=== PATIENT | male | born 1965 | race Caucasian/White ===

== ENCOUNTER 2016-10-30 08:34 | Day surgery (SDC) | payer BC ==
[2016-10-30] MEDS ORDERED: PROPOFOL 20 ML ONE ×2 (08:42)
[2016-10-30 08:59] VITALS: BMI 41.3
[2016-10-30] MEDS ORDERED: LIDOCAINE HCL/PF 2% SDV 5ML VIAL ONE (09:38)
[2016-10-30 10:55] VITALS: BP 115/70; PULSE 80; TEMP 98
== END 2016-10-30 11:15 | disposition home or self-care (01) ==
LOC: FASU-ENDO 08:34
PROVIDERS: ATTEND Internal Medicine Gastroenterology
PROC: 0DJD8ZZ Inspection of Lower Intestinal Tract, Via Natural or Artificial Opening Endoscopic (ICD-10-PCS; principal; 2016-10-30 10:20)
DX: Z12.11 Encounter for screening for malignant neoplasm of colon (principal); K57.30 Diverticulosis of large intestine without perforation or abscess without bleeding

== ENCOUNTER 2018-07-02 05:49 | Inpatient (IN) | payer BC ==
[2018-06-27 13:50] VITALS: BMI 41.8
[2018-07-02] MEDS ORDERED: TRANEXAMIC ACID 1000 MG/10 ML VIAL IVPUSH ONE (06:38)
[2018-07-02] MEDS ORDERED: oxyCODONE HCL 10 MG SUSTAINED ACTING TABLET PO ONE (06:38)
[2018-07-02] MEDS ORDERED: GABAPENTIN 300 MG CAPSULE (FP) PO ONE (06:38)
[2018-07-02] MEDS ORDERED: CEFAZOLIN 2 GM/D5W 2 GM/50 ML ML IVPB ONE (06:38)
[2018-07-02] MEDS ORDERED: CELECOXIB 200 MG CAPSULE PO ONE (06:38)
[2018-07-02] MEDS ORDERED: oxyCODONE HCL 10 MG SUSTAINED ACTING TABLET ONE (07:01)
[2018-07-02] MEDS ORDERED: GABAPENTIN 300 MG CAPSULE (FP) ONE (07:02)
[2018-07-02] MEDS ORDERED: CELECOXIB 200 MG CAPSULE ONE (07:02)
[2018-07-02] MEDS ORDERED: ceFAZolin SODIUM 1 GM VIAL ONE ×2 (07:14→07:26)
[2018-07-02] MEDS ORDERED: VANCOMYCIN 1,000 MG VIAL (RESTRICTED TO ID ONLY) ONE (07:14)
[2018-07-02] MEDS ORDERED: KETAMINE HCL 200 MG/20 ML VIAL ONE (07:25)
[2018-07-02] MEDS ORDERED: PROPOFOL 20 ML ONE (07:25)
[2018-07-02] MEDS ORDERED: SUCCINYLCHOLINE CHLORIDE 200 MG/10 ML VIAL ONE (07:25)
[2018-07-02] MEDS ORDERED: ONDANSETRON 4 MG/2 ML VIAL ONE (07:26)
[2018-07-02] MEDS ORDERED: SODIUM CHLORIDE 0.9% P/F 10 ML VIAL IJ ONE (07:26)
[2018-07-02] MEDS ORDERED: ROPIVACAINE HCL 0.5% 30ML VIAL ONE (07:32)
[2018-07-02] MEDS ORDERED: MIDAZOLAM HCL 2 MG/2 ML SINGLE DOSE VIAL ONE ×4 (07:32→21:23)
[2018-07-02] MEDS ORDERED: EPINEPHrine/PF 1 MG/1 ML (1:1,000) AMPULE ONE (07:32)
--- NOTE | 2018-07-02 07:58 | HP ---
Satellite [facility] - Chief Complaint Chief Complaint: right hip pain - Past Medical History Allergies/Adverse Reactions: Allergies Allergy/AdvReac Type Severity Reaction Status Date / Time No Known Allergies Allergy Verified 10/30/16 08:52 - Current Medications Current Medications: Home Medications Medication Instructions Recorded Amlodipine Besylate 10 mg PO DAILY 10/30/16 Gemfibrozil [Lopid -] 600 mg PO BID 10/30/16 Lisinopril [Prinivil] 20 mg PO DAILY 10/30/16 Allopurinol [Zyloprim -] 100 mg PO DAILY 06/27/18 Metoprolol Tartrate 25 mg PO BID 06/27/18 Satellite Physical Exam - Physical Examination Vital Signs: Vital Signs Period Temp Pulse Resp BP Sys/Lau Pulse Ox Last 24 Hr 98.2 F 68 18 117/70 General Appearance: Well Nourished, Well Developed, Alert & Oriented x3 ENT: Clear Lung: Normal air movement Heart: Regular rate & rhythm Extremities: Other (right hip- + ttp, decr rom, nvi xrays show grade 4 hip djd) Neurological: Intact, Alert, Oriented Satellite Impression/Plan - Impression/Plan Impression: right hip djd Operative Procedure: right saba thr Date to be Performed: 07/02/18
[2018-07-02] MEDS ORDERED: MAGNESIUM HYDROX 2400MG/30ML ORAL SUSPENSION 30 ML CUP PO PRN (07:59)
[2018-07-02] MEDS ORDERED: ONDANSETRON 4 MG/2 ML VIAL IVPUSH PRN (07:59)
[2018-07-02] MEDS ORDERED: MAG HYDROX/AL HYDROX/SIMETH 30 ML UNIT-DOSE CUP PO PRN (07:59)
[2018-07-02] MEDS ORDERED: LACTATED RINGERS SOLUTION 1,000 ML IV SCH (08:00)
[2018-07-02] MEDS ORDERED: TRANEXAMIC ACID 1000 MG/10 ML VIAL ONE (08:44)
[2018-07-02] MEDS ORDERED: ePHEDrine SULFATE 50 MG/1 ML AMPULE ONE (09:08)
[2018-07-02] MEDS ORDERED: VASOPRESSIN 20 UNITS/ML VIAL IV ONE (10:00)
[2018-07-02] MEDS ORDERED: PANTOPRAZOLE 40 MG TABLET (FP) PO SCH (10:00)
[2018-07-02] MEDS ORDERED: LISINOPRIL 20 MG TABLET (FP) PO SCH (10:00)
[2018-07-02] MEDS: HYDROmorphone HCL CARPU-JECT 2 MG/1 ML DISP.SYRIN IVPUSH ONE ×2 (10:50→11:30)
--- NOTE | 2018-07-02 11:19 | OP ---
DATE OF OPERATION: 07/02/2018 PREOPERATIVE DIAGNOSIS: Degenerative joint disease, right hip. POSTOPERATIVE DIAGNOSIS: Degenerative joint disease, right hip. PROCEDURE: Attempted total hip replacement. SURGICAL ATTENDING: Sergio Proctor MD ASSOCIATE [employer]: ELIZABETH Solorzano ANESTHESIA: Spinal and IV sedation. CLOSURE: No. 1 Vicryl to fascia, 0 and 2-0 subcutaneous, and reid for the skin. ESTIMATED BLOOD LOSS: Negligible. COMPLICATION: Please see full dictation to follow. DESCRIPTION OF OPERATIVE PROCEDURE: Patient was taken to the operating room July 02, 2018. Spinal anesthesia as well as IV sedation was administered by the anesthesiologist. IV Kefzol and TXA were administered prophylactically prior to the case. Patient was placed in the lateral decubitus position with all prominences well padded. Right hip area was prepped and draped in the usual sterile fashion. Three small stab incisions were made over the iliac crest. Through them 3 pins were placed in between the 2 tables gaining excellent fixation. A navigation array was fastened to these 3 pins. The posterolateral approach to the hip was used. A 12 to 15 cm longitudinal incision over the posterolateral aspect of the greater trochanter was incised. Hemostasis was ensured with Bovie cautery. Sharp dissection was carried down to the level of the fascia. Fascia was opened the entire length of the incision. Charnley retractor was placed in this layer. The checkpoint was then malleted into the trochanter. At this time Anesthesia informed me that the patient was desaturating and an immediate code was being called on the patient. Patient needed to be intubated. We therefore packed the wound with some Betadine-soaked sponges and put a Betadine drape over the incision and emergently put the patient in the supine position. Once in the supine position, the pins in the iliac crest were removed as well and a Band-Aid was applied over the small stab incisions. Please see the Anesthesia report regarding the entire resuscitation efforts. Once Anesthesia had stabilized the patient, we elected to abort the operation. We prepped and draped the incision. We pulse irrigated the wound with antibiotic irrigation, pulled out the checkpoint in the greater trochanter. We closed the fascia with No. 1 Vicryl interrupted suture; 0 and 2-0 were used to close the skin and reid on skin followed by sterile Aquacel dressing. Reid were also used to close the pin sites and an Aquacel dressing was applied there as well. Estimated blood loss during my part of the procedure was minimal. Once completely stable, the patient was transferred to the recovery room still intubated on a respirator. For all further dictations regarding the patient's care, please again see the anesthesiologist's notes of the care rendered during and postoperatively. SERGIO PROCTOR M.D. [id number]
[2018-07-02] MEDS ORDERED: HYDROmorphone HCL CARPU-JECT 2 MG/1 ML DISP.SYRIN ONE (11:28)
[2018-07-02] MEDS ORDERED: DEXMEDETOMIDINE HCL 200 MCG/2 ML IVPB ONE (11:29)
[2018-07-02] MEDS: MIDAZOLAM HCL 2 MG/2 ML SINGLE DOSE VIAL IVPUSH ONE ×2 (11:30→22:23)
[2018-07-02] MEDS ORDERED: HYDROmorphone HCL CARPU-JECT 1 MG/1 ML DISP.SYRIN IVPUSH PRN (11:40)
[2018-07-02] MEDS ORDERED: MIDAZOLAM HCL 2 MG/2 ML SINGLE DOSE VIAL IVPUSH ONE ×2 (11:52→20:06)
[2018-07-02] MEDS ORDERED: VASOPRESSIN 50 UNITS in SODIUM CHLORIDE 97.5 ML IVPB SCH (12:00)
[2018-07-02 13:13] LABS: ANION GAP 9 MMOL/L (8-16); BLOOD UREA NITROGEN 46 mg/dl (7-18); CALCIUM 8.9 mg/dl (8.5-10); CHLORIDE 105 mmol/L (98-107); CO2 18 mmol/L (21-32); CREATININE 1.5 mg/dl (0.55-1.3); GLUCOSE,RANDOM 124 mg/dl (74-106); SODIUM 132 mmol/L (136-145)
[2018-07-02 13:37] LABS: ARTERIAL BLD GAS O2 SATURATION 94.3 % (95-98); ARTERIAL BLOOD GAS BASE EXCESS -7.4 meq/l (-2-2); ARTERIAL BLOOD GAS PCO2 51.1 mmHg (35-45); ARTERIAL BLOOD GAS PO2 81.3 mmHg (80-105); ARTERIAL BLOOD GAS pH 7.22 (7.35-7.45)
[2018-07-02 13:40] LABS: ALLENS TEST POSITIVE
[2018-07-02] MEDS: PHENYLEPHRINE HCL 20,000 MCG in SODIUM CHLORIDE 248 ML IVPB SCH ×2 (15:00→17:21)
--- NOTE | 2018-07-02 15:09 | PN ---
Progress Note (short form) - Note Progress Note: Earlier today I was called to the OR urgently because the patient was increasingly agitated. Upon entering the OR, Diego Temple CRNA was supporting the patient's airway with 100% oxygen. The patient still had spontaneous respiration. I took over masking the patient and initiated 2 person ventilation. I informed the surgeon we needed to roll the patient supoine from the left, lateral position and called for more anesthesia assistance. the patient was promptly rolled, O2 sat increased from low 80s to 92%. Pt. was intubated with a mac 4, 7.0 ETT, grade 3 view, +EtCO2, atraumatic. At that point , no pulse was palpable and I directed one of the other physicians to start chest compressions. An amp of epinepherine was administered IV. Chest compressions were continued for 2 minutes at which point there was a return of spontaneous rhythm, blood pressure and O2 sat at 100%. Incision was closed and the patient was transferred to the PACU at which point the patient become responsive to pain. The patient remained intubated, Precedex sedation was started and the patient was transferred to the [facility] ICU
[2018-07-02] MEDS ORDERED: MIDAZOLAM HCL 5 MG/1 ML Single Dose Vial IVPUSH ONE ×2 (15:45)
--- NOTE | 2018-07-02 16:03 | CONSULT ---
Consult Consult Specialty:: ICU Referred by:: Mike hendrix Reason for Consultation:: s/p cardiac arrest - History of Present Illness History of Present Illness: history obtained from at bedside as patient in intubated and sedated. Chart reviewed for events at [facility]. 53 yr old man with HTN, HLD, DJD of the right hip undergoing elective right hip replacement. pt was medically stable prior to the procedure. After first incision, pt was noted to be desaturating, was laid supine with initiation of CPR, ROSC was achieved within 2 mins. pt was taken to the PACU intubated and sedated requiring phenylephrine and vasopressin peripherally for pressure support. sedation was achieved with precedex. pt was transferred to [facility] [place] ICU for further monitoring. As per , pt had changed his diet recently and was not eating or drinking fluids as much as he used to. last week in his dr's office he was unable to urinate for hours because he was so "dry." pt has received sedation in the past during a colonoscopy with out adverse events. denies any recent complaints of cough, chest pain, palpitations, fever, abdominal pain, diarrhea, dysuria, travel outside the [place], prolonged car rides or plane rides within the last month. she was not sure if he had taken any NSAIDs during the last, but thinks likely not if he had been instructed by surgery not to do so. fmhx: sister with DM, father when pt was 12yrs old due to a pulmonary embolism( was unsure of circumstances of PE, provoked vs unprovoked), mother had a pacemaker(unknown indication). was unsure of any other family hx of coagulopathy pmhx: HTN, HLD, denies hx of ND, CVA, or renal insufficiency Surghx: none All: NKDA Social: denies smoking, etoh, illicit drug use - Alcohol/Substance Use Hx Alcohol Use: No - Smoking History Smoking history: Never smoked Have you smoked in the past 12 months: No Home Medications - Allergies Allergies/Adverse Reactions: Allergies Allergy/AdvReac Type Severity Reaction Status Date / Time No Known Allergies Allergy Verified 10/30/16 08:52 - Home Medications Home Medications: Ambulatory Orders Amlodipine Besylate 10 mg PO DAILY 10/30/16 Gemfibrozil [Lopid -] 600 mg PO BID 10/30/16 Lisinopril [Prinivil] 20 mg PO DAILY 10/30/16 Allopurinol [Zyloprim -] 100 mg PO DAILY 06/27/18 Metoprolol Tartrate 25 mg PO BID 06/27/18 Family Disease History - Family Disease History Family Disease History: Diabetes: Sister, Heart Disease: Mother (pacemaker), Other: Father (PE) Review of Systems Unable to obtain ROS, reason: intubated and sedated Physical Exam Vital Signs: Vital Signs Temperature 97.7 F 07/02/18 14:15 Pulse Rate 84 07/02/18 14:15 Respiratory Rate 15 07/02/18 14:45 Blood Pressure 103/53 L 07/02/18 14:15 O2 Sat by Pulse Oximetry (%) 96 07/02/18 13:00 Constitutional: Yes: Calm Eyes: Yes: Conjunctiva Clear, PERRL HENT: Yes: Atraumatic, Normocephalic, Other (endotracheal tube in place) Neck: Yes: Trachea Midline. No: Lymphadenopathy Cardiovascular: Yes: Regular Rate and Rhythm. No: Murmur Respiratory: Yes: Intubated, Rhonchi. No: Accessory Muscle Use, Wheezes Gastrointestinal: Yes: Soft, Abdomen, Obese, Hernia (perumbilical) Edema: No Peripheral Pulses WNL: Yes Wound/Incision: Yes: Clean/Dry Labs: CBC, BMP 07/02/18 12:30 Assessment/Plan 53 yr old man with HTN, HLD, DJD in right hip s/p cardiac arrest during initiation of elective right hip replacement in ICU for further management. unclear cause of cardiac arrest without significant pmhx of cardiac disease and medical stability for elective hip replacement. could be from volume depletion or reaction to sedation. - Neurological - baseline alert and orient x3 - sedated on propofol currently, was on precedex earlier today - sedation holiday to assess mental status in the morning - Cardiovascular - hypotensive, monitoring with A-line - phenylephrine and vasopressin for pressure support attempt to titrate down to maintain MAP >65 - IVF - repeat echo - cardiology evaluation - elevation in troponin, trend for peak - Respiratory - intubated, Acute respiratory acidosis - vent: 12/500/Fio2 100%/5 - titrate Fio2 as tolerated to maintain sat >90% - repeat ABG in the AM, improved from earlier at [facility] - weaning trial in the AM - cxy in the morning - Renal - KIMBERLY, likely prerenal from decr po intake pre-op - IVF Ns @100cc, with close monitoring of I&O - mcgraw in place - Fluids, electrolytes, nutrition (FEN) - mild hyperkalemia, repeat in the AM - NPO - Hematology - mild leucocytosis, likely reactive as no active source of infection w.o complaints of dysuria, cxy without acute infiltrate or fever - Prophylaxis - SCDs for VTE as he just had incision from surgery on his right hip - pepcid IV BID for GI prophylaxis
[2018-07-02] MEDS ORDERED: SODIUM CHLORIDE 1,000 ML IV SCH (17:00)
[2018-07-02] MEDS: METOPROLOL TARTRATE 25 MG TABLET (FP) PO SCH ×2 (17:06→22:25)
[2018-07-02] MEDS: amLODIPine BESYLATE 10 MG TABLET (FP) PO SCH (17:07)
[2018-07-02] MEDS: SENNOSIDES/DOCUSATE COMBO (SENNA PLUS) TABLET (UD) PO SCH ×2 (17:07→22:25)
[2018-07-02] MEDS: MULTIVITAMINS (DAILY MVI) TABLET (FP) PO SCH (17:08)
[2018-07-02] MEDS: ALLOPURINOL 100 MG TABLET (FP) PO SCH (17:16)
--- NOTE | 2018-07-02 17:21 | HP ---
Admitting History and Physical - Admission Chief Complaint: s/p intubation for right hip THR, patient developed cardiac arrest, and procedure had to be cancelled History of Present Illness: Patient examined in recovery in [facility]. Morbidly obese 53 yo male, scheduled for right THR, lost approximately 50 lbs during the past 4 weeks through diet and decreased caloric intake. The patient was clinically dehydrated in my office on 06/30/18 and unable to provide specimen for UA after drinking a high amount of water. Today in OR, while on Phentanyl, the patient developed hypoxia, bradycardia and then cardiac arrest.The incision wound was closed without any intervention on his right hip. Patient remains intubated at this time. His PMH is positive for Morbid Obesity, HTN, Dyslipidemia. There is NO HISTORY OF DM He developed NSAID induced AKD. Last dose of Diclofenac was in March. On 06/16 2018 his creatinine was 1.66. At that time Lisinopril was stopped and he was started on Metoprolol 26 mg bid. Repeated chemistry on 06/30/18 showed a creatinine of 1.16. The Patient IS NOT diabetic. Ekg and ECHO were at baseline prior to surgery.The patient received CPR with administration of 1 ampule of epinephrine. The cardiac rhythm was recovered.Patient Patient remains intubated at this time. History Source: Medical Record - Past Medical History Cardiovascular: Yes: HTN, Hyperlipdemia Pulmonary: Yes: Other (intuna=bated) - Smoking History Smoking history: Never smoked Have you smoked in the past 12 months: No - Alcohol/Substance Use Hx Alcohol Use: No Home Medications - Allergies Allergies/Adverse Reactions: Allergies Allergy/AdvReac Type Severity Reaction Status Date / Time No Known Allergies Allergy Verified 10/30/16 08:52 - Home Medications Home Medications: Ambulatory Orders Amlodipine Besylate 10 mg PO DAILY 10/30/16 Gemfibrozil [Lopid -] 600 mg PO BID 10/30/16 Allopurinol [Zyloprim -] 100 mg PO DAILY 06/27/18 Metoprolol Tartrate 25 mg PO BID 06/27/18 Amlodipine Besylate [Norvasc -] 10 mg PO DAILY tablet 07/05/18 Aspirin [ASA -] 325 mg PO DAILY@0800 tablet 07/05/18 Gemfibrozil [Lopid -] 600 mg PO BIDAC tablet 07/05/18 Heparin - 5,000 unit SQ TID vial 07/05/18 Magnesium Hydrox 2400MG/30Ml [Milk of Magnesia -] 30 ml PO PRN PRN cup Magnesium Hydrox 2400MG/30Ml [Milk of Magnesia -] 30 ml PO PRN PRN cup Metoprolol Tartrate [Lopressor -] 25 mg PO BID tablet 07/05/18 Multivitamins [Multivit ([facility] Formulary)] 1 tab PO DAILY tab 07/05/18 Sennosides/Docusate Sodium [Pericolace -] 2 tablet PO BID tablet 07/05/18 Sennosides/Docusate Sodium [Pericolace -] 2 tablet PO BID tablet 07/05/18 oxyCODONE HCL [Roxicodone -] 5 mg PO Q6H PRN #30 tablet MDD 4 07/05/18 Review of Systems - Review of Systems Constitutional: reports: Other (sedated) Physical Examination Vital Signs: Vital Signs Temperature 97.7 F 07/02/18 14:15 Pulse Rate 84 07/02/18 14:15 Respiratory Rate 15 07/02/18 14:45 Blood Pressure 103/53 L 07/02/18 14:15 O2 Sat by Pulse Oximetry (%) 96 07/02/18 13:00 Constitutional: Yes: No Distress, Obese, Other (sedated and intubated) Eyes: Yes: Conjunctiva Clear HENT: Yes: Atraumatic Labs: CBC, BMP 07/02/18 12:30 Imaging - Results Chest X-ray: Other (11 am CXR cardiomegaly , possible left infiltrate, ET Tube present high above the darell 2 pm CXR Et tube present in a lower position) Problem List - Problems (1) Cardiac arrest Assessment/Plan: serial enzymes ekg echo Cardiology follow up Code(s): I46.9 - CARDIAC ARREST, CAUSE UNSPECIFIED (2) HTN (hypertension) Assessment/Plan: norvasc 10 mg daily Code(s): I10 - ESSENTIAL (PRIMARY) HYPERTENSION (3) Obesity Assessment/Plan: despite morbid obesity the patient is not diabetic and the HB A1 c in June 2018 was 5.1 Code(s): E66.9 - OBESITY, UNSPECIFIED Qualifiers: Body mass index: BMI 40.0-44.9 (4) Hyperlipidemia Assessment/Plan: continue Lopid 600 mg po bid Code(s): E78.5 - HYPERLIPIDEMIA, UNSPECIFIED (5) Acute kidney injury Assessment/Plan: creatinine on 06/30/18 1.16!! after stopping Lisinopril on 06/16/18 The patient has NOT been taking NSAIDS since March 2018 injury probably related to shock and cardiac arrest Code(s): N17.9 - ACUTE KIDNEY FAILURE, UNSPECIFIED (6) Leukocytosis Assessment/Plan: stress related most likely CXR shows consistently haziness in the left lung, not clear if congestive changes or aspiration? will not cover with ABX for now since there is no left shift repeat cbc in am Code(s): D72.829 - ELEVATED WHITE BLOOD CELL COUNT, UNSPECIFIED
[2018-07-02] MEDS: PROPOFOL 1,000,000 MCG/100 ML VIAL IVPB SCH ×2 (17:23→21:17)
--- NOTE | 2018-07-02 17:25 | PN ---
Teaching Attending Note Name of Resident: Marianna Rubalcava ATTENDING PHYSICIAN STATEMENT I saw and evaluated the patient. I reviewed the resident's note and discussed the case with the resident. I agree with the resident's findings and plan as documented. SUBJECTIVE: Patient seen and examined in the ICU. Transferred from [facility]. Developed hypoxemia and bradycardia prior to a Right hip replacement. Patient was endotracheally intubated. CPR was initiated due to asystole. ROSC after 2 to 3 minutes. Transiently required Phenylephrine for hypotension. Now in the ICU. Intubated on AC Mode of vent. At this time no pressors and MAP 68 by Sandi tracing. Intake & Output 06/29/18 06/30/18 07/01/18 07/02/18 23:59 23:59 23:59 23:59 Intake Total 2650 Output Total 640 Balance 2009 Weight 326 lb 4.8 oz Last Vital Signs Temp Pulse Resp BP Pulse Ox 97.7 F 58 L 15 122/68 96 07/02/18 14:15 07/02/18 17:20 07/02/18 14:45 07/02/18 17:20 07/02/18 13:00 Active Medications Al Hydroxide/Mg Hydroxide (Mylanta Oral Suspension -) 30 ml PO Q4H PRN PRN Reason: DYSPEPSIA Allopurinol (Zyloprim -) 100 mg PO DAILY [facility] Last Admin: 07/02/18 17:16 Dose: Not Given Amlodipine Besylate (Norvasc -) 10 mg PO DAILY [facility] Last Admin: 07/02/18 17:07 Dose: Not Given Aspirin (Asa -) 325 mg PO DAILY@0800 [facility] Gemfibrozil (Lopid -) 600 mg PO BIDAC [facility] Hydromorphone HCl (Dilaudid Injection -) 0.5 mg IVPUSH [id number] PRN PRN Reason: PAIN-PACU ORDER X 4 DOSES ONLY Cefazolin Sodium/Dextrose (Ancef 2 Gm Premixed Ivpb -) 2 gm in 50 mls @ 100 mls /hr IVPB Q8H [facility] Stop: 07/03/18 00:29 Lactated Ringer's (Lactated Ringers Solution) 1,000 mls @ 125 mls/hr IV ASDIR [facility] Stop: 07/03/18 06:00 Phenylephrine HCl 20,000 mcg/ (Sodium Chloride) 250 mls @ 75 mls/hr IVPB ASDIR PRO; Protocol Last Admin: 07/02/18 17:21 Dose: 25 mcg/min, 18.75 mls/hr Vasopressin 50 units/ Sodium (Chloride) 100 mls @ 4 mls/hr IVPB ASDIR PRO; Protocol Last Admin: 07/02/18 17:20 Dose: 3 units/hr, 6 mls/hr Propofol (Diprivan -) 1,000,000 mcg in 100 mls @ 8.88 mls/hr IVPB TITR PRO; Protocol Last Admin: 07/02/18 17:23 Dose: 30 mcg/kg/min, 26.641 mls/hr Sodium Chloride (Normal Saline -) 1,000 mls @ 100 mls/hr IV ASDIR PRO Last Admin: 07/02/18 17:24 Dose: 100 mls/hr Magnesium Hydroxide (Milk Of Magnesia -) 30 ml PO PRN PRN PRN Reason: CONSTIPATION Metoprolol Tartrate (Lopressor -) 25 mg PO BID [facility] Last Admin: 07/02/18 17:06 Dose: Not Given Multivitamins/Minerals/Vitamin C (Tab-A-Vit -) 1 tab PO DAILY [facility] Last Admin: 07/02/18 17:08 Dose: Not Given Ondansetron HCl (Zofran Injection) 4 mg IVPUSH Q6H PRN PRN Reason: NAUSEA Senna/Docusate Sodium (Pericolace -) 2 tablet PO BID [facility] Last Admin: 07/02/18 17:07 Dose: Not Given Constitutional: Yes: Intubated and sedated Eyes: Yes: WNL, Conjunctiva Clear, (-) Icterus HENT: Yes: NC, AT Neck: Yes: WNL, Supple, Trachea Midline Respiratory: Yes: Mechanically ventilated, clear GI: soft, obese, (+) BS, NT, ND Ext: (-) edema APPLIANCE ADJUSTER: Sedated Laboratory Results - last 24 hr 07/02/18 07/02/18 07/02/18 12:25 12:30 12:30 Anticoagulation Therapy No Result Required. Puncture Site Arterial line ABG pH 7.22 L ABG pCO2 at Pt Temp 51.1 H ABG pO2 at Pt Temp 81.3 ABG HCO3 20.3 L ABG O2 Sat (Measured) 94.3 L ABG O2 Content 19.3 ABG Base Excess -7.4 L Reyes Test Positive O2 Delivery Device No Result Required. Oxygen Flow Rate Yes Vent Mode No Result Required. Vent Rate No Result Required. Mechanical Rate No Result Required. PEEP 5.0 Pressure Support Vent 500 Sodium 132 L Potassium 5.0 Chloride 105 Carbon Dioxide 18 L Anion Gap 9 BUN 46 H Creatinine 1.5 H Creat Clearance w eGFR 48.95 Random Glucose 124 H Calcium 8.9 Troponin I 0.08 H Assessment/Plan Acute CP Arrest: Appears to have regained ROSC after 2 to 3 minutes. Morbid Obesity ARF Suspected OSAS PLAN: IVF Strict I & O Follow Renal Function Sedate for vent synchrony Daily sedation vacation ECHO Cardiology evaluation Requires ICU Level of monitoring To start SBTs as tolerated Dr Hill Critical care time spent in reviewing chart, evaluating patient and formulating plan - 36 minutes.
[2018-07-02] MEDS ORDERED: PROPOFOL 1,000,000 MCG/100 ML VIAL ONE (17:27)
[2018-07-02] MEDS: CEFAZOLIN 2 GM/D5W 2 GM/50 ML ML IVPB SCH (17:30)
[2018-07-02] MEDS ORDERED: PT OWN MED DRAWER 7, Y5N ONE (17:36)
[2018-07-02 18:05] LABS: ARTERIAL BLD GAS O2 SATURATION 99.6 % (95-98); ARTERIAL BLOOD GAS BASE EXCESS -6.5 meq/l (-2-2); ARTERIAL BLOOD GAS PCO2 46.7 mmHg (35-45); ARTERIAL BLOOD GAS PO2 284 mmHg (80-105); ARTERIAL BLOOD GAS pH 7.26 (7.35-7.45)
[2018-07-02 18:11] LABS: ALLENS TEST POSITIVE
[2018-07-02 18:55] LABS: BASO % 0.2 % (0-2.0); EOS % 0.1 % (0-4.5); HEMATOCRIT 39.7 % (35.4-49); HEMOGLOBIN 13.5 GM/dL (11.7-16.9); LYMPH % 11.1 % (8-40); MCH 33.2 pg (25.7-33.7); MEAN CELL VOLUME 97.6 fl (80-96); MEAN PLT VOLUME 9.5 fl (7.5-11.1); MONO % 9.6 % (3.8-10.2); PLATELET COUNT 246 K/MM3 (134-434); RBC 4.07 M/mm3 (4.00-5.60); RDW 13.8 % (11.9-15.9); WHITE BLOOD COUNT 11.9 K/mm3 (4.0-10.0)
[2018-07-02 19:20] LABS: MAGNESIUM 2.1 mg/dL (1.8-2.4); PHOSPHOROUS 3.7 mg/dL (2.5-4.9)
[2018-07-02 19:30] LABS: ANION GAP 7 MMOL/L (8-16); BLOOD UREA NITROGEN 39 mg/dL (7-18); CHLORIDE 106 mmol/L (98-107); CO2 23 mmol/L (21-32); CREATININE 1.3 mg/dL (0.55-1.3); GLUCOSE,RANDOM 129 mg/dL (74-106); POTASSIUM 5.8 mmol/L (3.5-5.1); SODIUM 136 mmol/L (136-145)
--- NOTE | 2018-07-02 21:47 | EKG ---
Test Reason : Blood Pressure : / mmHG Vent. Rate : 085 BPM Atrial Rate : 085 BPM P-R Int : 194 ms QRS Dur : 098 ms QT Int : 370 ms P-R-T Axes : 052 011 029 degrees QTc Int : 440 ms NORMAL SINUS RHYTHM NORMAL ECG WHEN COMPARED WITH ECG OF 21-MAR-2008 10:04, NON-SPECIFIC CHANGE IN ST SEGMENT IN LATERAL LEADS T WAVE INVERSION NO LONGER EVIDENT IN LATERAL LEADS Confirmed by MD GREGORIA, ARSH ([id number]) on 07/02/2018 9:47:10 PM Referred By: Bong Proctor Confirmed By:ARSH KINNEY MD
--- NOTE | 2018-07-02 22:34 | CON.CARD ---
Consult Consult Specialty:: cardiology Reason for Consultation:: cardiac arrest - History of Present Illness Chief Complaint: Pt is intubated; sedated. History of Present Illness: 53 yr old white man with HTN, HLD, obesity, DJD of the right hip undergoing elective right hip replacement. pt was medically stable prior to the procedure. After first incision, pt was noted to be desaturating, was laid supine with initiation of CPR, ROSC was achieved within 2 mins. pt was taken to the PACU intubated and sedated requiring phenylephrine and vasopressin peripherally for pressure support. sedation was achieved with precedex. pt was transferred to [facility] ICU for further monitoring. He became agitated, and was given Versed during transfer. As per , pt had changed his diet recently and was not eating or drinking fluids as much as he used to for the past two weeks. Last week ,in his dr's office, he was unable to urinate for several hours when asked to give a specimen because he was so "dry." pt has received sedation in the past during a colonoscopy with out adverse events. denies any recent complaints of cough, chest pain, palpitations, fever, abdominal pain, diarrhea, dysuria, travel outside the [place], prolonged car rides or plane rides within the last month. she was not sure if he had taken any NSAIDs during the last, but thinks likely not if he had been instructed by surgery not to do so. fmhx: sister with DM, father when pt was 12yrs old due to a pulmonary embolism ( was unsure of circumstances of PE, provoked vs unprovoked), mother had a pacemaker(unknown indication). was unsure of any other family hx of coagulopathy pmhx: HTN, HLD, denies hx of PA, CVA, or renal insufficiency Surghx: none All: NKDA Social: denies smoking, etoh, illicit drug use - History Source History Provided By: Medical Record Limitations to Obtaining History: Unresponsive (intubated/sedated) - Past Medical History Cardio/Vascular: Yes: CHF, HTN, Hyperlipdemia Pulmonary: Yes: Other (intuna=bated) - Alcohol/Substance Use Hx Alcohol Use: No - Smoking History Smoking history: Never smoked Have you smoked in the past 12 months: No Home Medications - Allergies Allergies/Adverse Reactions: Allergies Allergy/AdvReac Type Severity Reaction Status Date / Time No Known Allergies Allergy Verified 10/30/16 08:52 - Home Medications Home Medications: Ambulatory Orders Amlodipine Besylate 10 mg PO DAILY 10/30/16 Gemfibrozil [Lopid -] 600 mg PO BID 10/30/16 Lisinopril [Prinivil] 20 mg PO DAILY 10/30/16 Allopurinol [Zyloprim -] 100 mg PO DAILY 06/27/18 Metoprolol Tartrate 25 mg PO BID 06/27/18 Family Disease History - Family Disease History Family Disease History: Diabetes: Sister, Heart Disease: Mother (pacemaker), Other: Father (PE) Review of Systems Unable to obtain ROS, reason: intubated/sedated - Risk Factors Known Risk Factors: Yes: Age, Diabetes Mellitus, Gender, Hypercholesterolemia, Hypertension Vital Signs: Vital Signs Temperature 98.1 F 07/02/18 20:55 Pulse Rate 68 07/02/18 20:55 Respiratory Rate 14 07/02/18 22:13 Blood Pressure 96/59 L 07/02/18 20:55 O2 Sat by Pulse Oximetry (%) 99 07/02/18 20:55 Constitutional: Yes: Obese Eyes: Yes: WNL HENT: Yes: Other Neck: Yes: Decreased ROM Respiratory: Yes: Mechanically Ventilated Gastrointestinal: Yes: Abdomen, Obese Renal/: Yes: Tracy Present Cardiovascular: Yes: Tachycardia JVD: No Carotid Bruit: No PMI: Non-Displaced Heart Sounds: Yes: S1, S2 Musculoskeletal: Yes: Other (was reportedly agitated during transfer between hospitals; now sedated) Edema: No Peripheral Pulses WNL: Yes Integumentary: Yes: Incision Neurological: Yes: Unresponsive Psychiatric: Yes: Other - Other Data Labs, Other Data: CBC, BMP 07/02/18 18:00 07/02/18 18:00 Troponin, BNP 07/02/18 07/02/18 12:30 18:00 Troponin I 0.08 H 0.33 H Troponin, BNP 07/02/18 07/02/18 12:30 18:00 Troponin I 0.08 H 0.33 H Imaging - Results Chest X-ray: Image Reviewed (few congestive changes) EKG: Image Reviewed (NSR; normal study) Other: Image Reviewed (telemetry: sinus tachycardia) Problem List - Problems (1) Cardiac arrest Assessment/Plan: Presently on phenylephrine and Vasopressin; titrate off when hemodynamically stable. Hydration. F/u BUN/Cr, electrolytes (K+ 5.0; f/u serially). TNI serially (initially 0.08) EKG: normal sinus rhythm; normal study. ECHO several days ago: normal LVEF, LV size, wall thickness and motion, mild MR and TR; would repeat with attention to LVEF, regional wall motion. Code(s): I46.9 - CARDIAC ARREST, CAUSE UNSPECIFIED (2) Hip replacement planned Code(s): UDK3281 - (3) Obesity Code(s): E66.9 - OBESITY, UNSPECIFIED Qualifiers: Body mass index: BMI 40.0-44.9 (4) HTN (hypertension) Code(s): I10 - ESSENTIAL (PRIMARY) HYPERTENSION (5) Hyperlipidemia Code(s): E78.5 - HYPERLIPIDEMIA, UNSPECIFIED (6) Diabetes Code(s): E11.9 - TYPE 2 DIABETES MELLITUS WITHOUT COMPLICATIONS (7) Prerenal azotemia Assessment/Plan: Pt had reportedly radically changed his diet/fluid intake over the past few weeks in an attempt to lose weight prior to surgery. F/u renal status while IVF are administered. Code(s): R79.89 - OTHER SPECIFIED ABNORMAL FINDINGS OF BLOOD CHEMISTRY Assessment/Plan CCU time spent: 75 minutes.
[2018-07-02] MEDS ORDERED: MIDAZOLAM 100 MG/100 ML MG IVPB ONE (22:43)
[2018-07-02] MEDS ORDERED: MIDAZOLAM 100 MG in SODIUM CHLORIDE 100 ML IVPB SCH (22:45)
[2018-07-03] MEDS ORDERED: INSULIN REGULAR HUMAN 100 UNITS/ML *VIAL IVPUSH ONE (00:38)
[2018-07-03] MEDS ORDERED: DEXTROSE 50%-WATER - 25 GM/50 ML VIAL IVPUSH ONE (00:39)
[2018-07-03] MEDS ORDERED: DEXTROSE 50%-WATER - 25 GM/50 ML VIAL ONE (00:45)
[2018-07-03] MEDS: CEFAZOLIN 2 GM/D5W 2 GM/50 ML ML IVPB SCH (01:08)
[2018-07-03] MEDS: PROPOFOL 1,000,000 MCG/100 ML VIAL IVPB SCH ×3 (01:18→20:42)
[2018-07-03 02:18] LABS: ANION GAP 7 MMOL/L (8-16); BLOOD UREA NITROGEN 32 mg/dL (7-18); CALCIUM 9.1 mg/dL (8.5-10.1); CHLORIDE 107 mmol/L (98-107); CO2 22 mmol/L (21-32); CREATININE 1.1 mg/dL (0.55-1.3); GLUCOSE,RANDOM 145 mg/dL (74-106); SODIUM 136 mmol/L (136-145)
[2018-07-03] MEDS: GEMFIBROZIL 600 MG TABLET (FP) PO SCH ×2 (06:36→20:42)
[2018-07-03 06:50] LABS: BASO % 0.2 % (0-2.0); EOS % 0.2 % (0-4.5); HEMATOCRIT 38.5 % (35.4-49); HEMOGLOBIN 13.5 GM/dL (11.7-16.9); LYMPH % 13.7 % (8-40); MCH 33.7 pg (25.7-33.7); MEAN CELL VOLUME 96.2 fl (80-96); MEAN PLT VOLUME 9.9 fl (7.5-11.1); MONO % 12.2 % (3.8-10.2); NEUT % 73.7 % (42.8-82.8); PLATELET COUNT 230 K/MM3 (134-434); WHITE BLOOD COUNT 10.5 K/mm3 (4.0-10.0)
[2018-07-03 07:23] LABS: CHOLESTEROL 149 mg/dL (50-200); HDL CHOLESTEROL 31 mg/dL (40-60); TRIGLYCERIDES 168 mg/dL (0-150)
--- NOTE | 2018-07-03 07:26 | PN ---
Physical Exam: SUBJECTIVE: Patient seen and examined. Was intubated yesterday as part of code after de-sating in [place] OR for R hip surgery and required one round epi and 2 mins chest compression. Also required vasopressin and phenylephrine overnight. OBJECTIVE: Vital Signs Period Temp Pulse Resp BP Sys/Lau Pulse Ox Last 24 Hr 97.7 F-98.2 F 58-128 10-29 66-140/20-103 94-100 Vital Signs Temp 97.9 F 07/03/18 10:00 Pulse 106 H 07/03/18 12:00 Resp 20 07/03/18 12:00 BP 155/84 07/03/18 12:00 Pulse Ox 96 07/03/18 09:45 Intake & Output 07/02/18 07/03/18 07/03/18 23:59 11:59 23:59 Intake Total 700 Output Total 640 1500 1500 Balance 60 -1500 -1500 Weight 147.871 kg Intake: IV 700 Output: Urine 640 1500 1500 Mcgraw 1500 1500 Other: Voiding Method Indwelling Catheter Indwelling Catheter Height 1.88 m Body Mass Index (BMI) 41.8 Weight Measurement Method Built in [facility] GENERAL: The patient is Morbidly obese, awake, alert, and fully oriented, in no acute distress. EYES: PERRL, extraocular movements intact ENT: ETT-AC-12/500/50/5 NECK: supple. LUNGS: Breath sounds equal, clear to auscultation bilaterally, no wheezes, no crackles, no accessory muscle use. HEART: Regular rate and rhythm, S1, S2 ABDOMEN: Obese, Soft, nontender, nondistended, normoactive bowel sounds EXTREMITIES: R hip dressing clean and dry. 2+ pulses, warm, well-perfused, no edema. NEUROLOGICAL: Cranial nerves II through XII grossly intact. Normal speech, gait not observed. PSYCH: Normal mood, normal affect. SKIN: Warm, dry, normal turgor, no rashes or lesions noted Laboratory Results - last 24 hr 07/02/18 07/02/18 07/02/18 12:25 12:30 12:30 WBC RBC Hgb Hct MCV MCH MCHC RDW Plt Count MPV Absolute Neuts (auto) Neutrophils % Lymphocytes % Monocytes % Eosinophils % Basophils % Nucleated RBC % Anticoagulation Therapy No Result Required. Puncture Site Arterial line ABG pH 7.22 L ABG pCO2 at Pt Temp 51.1 H ABG pO2 at Pt Temp 81.3 ABG HCO3 20.3 L ABG O2 Sat (Measured) 94.3 L ABG O2 Content 19.3 ABG Base Excess -7.4 L Reyse Test Positive O2 Delivery Device No Result Required. Oxygen Flow Rate Yes Vent Mode No Result Required. Vent Rate No Result Required. Mechanical Rate No Result Required. PEEP 5.0 Pressure Support Vent 500 Sodium 132 L Potassium 5.0 Chloride 105 Carbon Dioxide 18 L Anion Gap 9 BUN 46 H Creatinine 1.5 H Creat Clearance w eGFR 48.95 Random Glucose 124 H Calcium 8.9 Phosphorus Magnesium Creatine Kinase Troponin I 0.08 H Triglycerides Cholesterol Total LDL Cholesterol HDL Cholesterol TSH 07/02/18 07/02/18 07/02/18 17:55 18:00 18:00 WBC 11.9 H RBC 4.07 Hgb 13.5 Hct 39.7 MCV 97.6 H MCH 33.2 MCHC 34.0 RDW 13.8 Plt Count 246 MPV 9.5 Absolute Neuts (auto) 9.4 H Neutrophils % 79.0 Lymphocytes % 11.1 Monocytes % 9.6 Eosinophils % 0.1 Basophils % 0.2 Nucleated RBC % 0 Anticoagulation Therapy Puncture Site Arterial line ABG pH 7.26 L ABG pCO2 at Pt Temp 46.7 H ABG pO2 at Pt Temp 284 H ABG HCO3 20.2 L ABG O2 Sat (Measured) 99.6 H ABG O2 Content 18.4 ABG Base Excess -6.5 L Reyes Test Positive O2 Delivery Device Mechanical vent Oxygen Flow Rate 100 Vent Mode A/c Vent Rate 12 Mechanical Rate PEEP 5.0 Pressure Support Vent Sodium Potassium Chloride Carbon Dioxide Anion Gap BUN Creatinine Creat Clearance w eGFR Random Glucose Calcium Phosphorus 3.7 Magnesium 2.1 Creatine Kinase Troponin I Triglycerides Cholesterol Total LDL Cholesterol HDL Cholesterol TSH 07/02/18 07/02/18 07/03/18 18:00 18:00 01:44 WBC RBC Hgb Hct MCV MCH MCHC RDW Plt Count MPV Absolute Neuts (auto) Neutrophils % Lymphocytes % Monocytes % Eosinophils % Basophils % Nucleated RBC % Anticoagulation Therapy Puncture Site ABG pH ABG pCO2 at Pt Temp ABG pO2 at Pt Temp ABG HCO3 ABG O2 Sat (Measured) ABG O2 Content ABG Base Excess Reyes Test O2 Delivery Device Oxygen Flow Rate Vent Mode Vent Rate Mechanical Rate PEEP Pressure Support Vent Sodium 136 136 Potassium 5.8 H 4.0 Chloride 106 107 Carbon Dioxide 23 22 Anion Gap 7 L 7 L BUN 39 H 32 H Creatinine 1.3 1.1 Creat Clearance w eGFR 57.75 70.02 Random Glucose 129 H 145 H Calcium 9.0 9.1 Phosphorus Magnesium Creatine Kinase 122 Troponin I 0.33 H Triglycerides Cholesterol Total LDL Cholesterol HDL Cholesterol TSH 0.39 07/03/18 07/03/18 01:44 05:30 WBC RBC Hgb Hct MCV MCH MCHC RDW Plt Count MPV Absolute Neuts (auto) Neutrophils % Lymphocytes % Monocytes % Eosinophils % Basophils % Nucleated RBC % Anticoagulation Therapy Puncture Site ABG pH ABG pCO2 at Pt Temp ABG pO2 at Pt Temp ABG HCO3 ABG O2 Sat (Measured) ABG O2 Content ABG Base Excess Reyes Test O2 Delivery Device Oxygen Flow Rate Vent Mode Vent Rate Mechanical Rate PEEP Pressure Support Vent Sodium Potassium Chloride Carbon Dioxide Anion Gap BUN Creatinine Creat Clearance w eGFR Random Glucose Calcium Phosphorus Magnesium Creatine Kinase Troponin I 0.36 H Triglycerides 168 H Cholesterol 149 Total LDL Cholesterol 92 HDL Cholesterol 31 L TSH Active Medications Generic Name Dose Route Start Last Admin Trade Name Freq PRN Reason Stop Dose Admin Al Hydroxide/Mg Hydroxide 30 ml 07/02/18 07:59 Mylanta Oral Suspension - PO Q4H PRN DYSPEPSIA Allopurinol 100 mg 07/02/18 10:00 07/02/18 17:16 Zyloprim - PO Not Given DAILY [facility] Amlodipine Besylate 10 mg 07/02/18 10:00 07/02/18 17:07 Norvasc - PO Not Given DAILY [facility] Aspirin 325 mg 07/03/18 08:00 Asa - PO DAILY@0800 [facility] Gemfibrozil 600 mg 07/02/18 16:30 07/03/18 06:36 Lopid - PO Not Given BIDAC [facility] Phenylephrine HCl 20,000 mcg/ 250 mls @ 75 mls/hr 07/02/18 12:00 07/02/18 17: 21 Sodium Chloride IVPB 25 mcg/min ASDIR PRO 18.75 mls/hr Administration Protocol 100 MCG/MIN Vasopressin 50 units/ Sodium 100 mls @ 4 mls/hr 07/02/18 12:00 07/02/18 17:20 Chloride IVPB 3 units/hr ASDIR PRO 6 mls/hr Administration Protocol 2 UNITS/HR Propofol 1,000,000 mcg in 100 mls @ 8.88 mls/hr 07/02/18 16:00 07/03/18 05:10 Diprivan - IVPB 30 mcg/kg/min TITR PRO 26.641 mls/hr Administration Protocol 10 MCG/KG/MIN Sodium Chloride 1,000 mls @ 100 mls/hr 07/02/18 17:00 07/02/18 17:24 Normal Saline - IV 100 mls/hr ASDIR PRO Administration Famotidine/Sodium Chloride 20 mg in 50 mls @ 100 mls/hr 07/03/18 10:00 Pepcid 20 Mg Premixed Ivpb - IVPB BID PRO Midazolam HCl 100 mg/ Sodium 100 mls @ 1 mls/hr 07/02/18 22:45 07/03/18 01:18 Chloride IVPB 8 mg/hr TITR PRO 8 mls/hr Titration Protocol 1 MG/HR Magnesium Hydroxide 30 ml 07/02/18 07:59 Milk Of Magnesia - PO PRN PRN CONSTIPATION Metoprolol Tartrate 25 mg 07/02/18 10:00 07/02/18 22:25 Lopressor - PO Not Given BID [facility] Multivitamins/Minerals/Vitamin C 1 tab 07/02/18 10:00 07/02/18 17:08 Tab-A-Vit - PO Not Given DAILY [facility] Ondansetron HCl 4 mg 07/02/18 07:59 Zofran Injection IVPUSH Q6H PRN NAUSEA Senna/Docusate Sodium 2 tablet 07/02/18 10:00 07/02/18 22:25 Pericolace - PO Not Given BID [facility] ASSESSMENT/PLAN: 53 yr old man with HTN, HLD, DJD in right hip s/p cardiac arrest during initiation of elective right hip replacement in ICU for further management. Unclear cause of cardiac arrest, possibly due to SHANNAN #Neurology - baseline alert and orient x3 - Pt sedated on propofol and versed overnight, was on precedex yesterday - Now off sedation and extubated (07/03/18) #Cardiovascular -s/p cardiac arrest, 1 round of epi, chest compressions x2 mins - hypotensive s/p cardiac arrest, - phenylephrine and vasopressin dc'd - IVF- stopped evidence of fluid congestion - repeat echo pending report - cardiology evaluation - elevation in troponin, trending, no chest pain currently #Respiratory - intubated for Acute hypercapnic respiratory failure with acidosis , now extubated 07/03, tolerating ventimask -Likely secondary to undiagnosed SHANNAN - maintain sat >90% on supplemental O2 - Would need outpt PFTs and possible sleep studies #Renal - - KIMBERLY, likely prerenal - IVF Ns @100cc,dcd -fluid overload in CXR - mcgraw in place #FEN - IVF dced - NaPhosph given - Sodium free diet #Hematology - leucocytosis, likely reactive now trending down -#Prophylaxis - Sq heparin - pepcid IV BID for GI prophylaxis #Dispo -Tele transfer Visit type - Emergency Visit Emergency Visit: Yes ED Registration Date: 07/02/18 Care time: The patient presented to the Emergency Department on the above date and was hospitalized for further evaluation of their emergent condition. - New Patient This patient is new to me today: Yes Date on this admission: 07/03/18 - Critical Care Critical Care patient: Yes Total Critical Care Time (in minutes): 36 Critical Care Statement: The care of this patient involved high complexity decision making to prevent further life threatening deterioration of the patient 's condition and/or to evaluate & treat vital organ system(s) failure or risk of failure.
[2018-07-03 07:38] LABS: ALBUMIN 3.9 g/dl (3.4-5.0); ALK PHOS 46 U/L (45-117); ANION GAP 11 MMOL/L (8-16); BILIRUBIN,TOTAL 0.5 mg/dL (0.2-1); BLOOD UREA NITROGEN 27 mg/dL (7-18); CALCIUM 9.3 mg/dL (8.5-10.1); CHLORIDE 105 mmol/L (98-107); CO2 19 mmol/L (21-32); CREATININE 0.9 mg/dL (0.55-1.3); GLUCOSE,RANDOM 99 mg/dL (74-106); MAGNESIUM 2.1 mg/dL (1.8-2.4); PHOSPHOROUS 2.2 mg/dL (2.5-4.9); POTASSIUM 4.1 mmol/L (3.5-5.1); SGOT/AST 51 U/L (15-37); SGPT/ALT 44 U/L (13-61); SODIUM 135 mmol/L (136-145); TOT PROT 7.8 g/dl (6.4-8.2)
[2018-07-03] MEDS ORDERED: DEXTROSE 5%-NORMAL SALINE 1,000 ML IV SCH ×2 (08:00→20:00)
[2018-07-03] MEDS ORDERED: ASPIRIN 325 MG TABLET PO SCH (08:00)
--- NOTE | 2018-07-03 10:00 | PN ---
Progress Note (short form) - Note Progress Note: THE PATIENT IS SEDATED AND INTUBATE. THE ICU STAFF WILL TRY TO EXTUBATE THE PATIENT TODAY. THE INCISION BANDAGE IS CLEAN AND DRY. CALF IS SOFT AND NT. NVI PLAN: ONCE EXTUBATE, THE PATIENT CAN BE OOB TO CHAIR, WBAT.
[2018-07-03] MEDS: amLODIPine BESYLATE 10 MG TABLET (FP) PO SCH (10:11)
[2018-07-03] MEDS: SENNOSIDES/DOCUSATE COMBO (SENNA PLUS) TABLET (UD) PO SCH ×2 (10:11→21:40)
[2018-07-03] MEDS: MULTIVITAMINS (DAILY MVI) TABLET (FP) PO SCH (10:13)
[2018-07-03] MEDS: FAMOTIDINE 20 MG/50 ML IVPB 20 MG/50 ML MG IVPB SCH ×2 (10:13→21:40)
[2018-07-03] MEDS: ALLOPURINOL 100 MG TABLET (FP) PO SCH (10:13)
[2018-07-03] MEDS: METOPROLOL TARTRATE 25 MG TABLET (FP) PO SCH ×2 (10:14→21:40)
--- NOTE | 2018-07-03 10:39 | EKG ---
Test Reason : Blood Pressure : / mmHG Vent. Rate : 116 BPM Atrial Rate : 116 BPM P-R Int : 176 ms QRS Dur : 098 ms QT Int : 322 ms P-R-T Axes : 045 018 051 degrees QTc Int : 447 ms SINUS TACHYCARDIA INFERIOR INFARCT , AGE UNDETERMINED T WAVE ABNORMALITY, CONSIDER LATERAL ISCHEMIA ABNORMAL ECG WHEN COMPARED WITH ECG OF 02-JUL-2018 11:52, NON-SPECIFIC CHANGE IN ST SEGMENT IN ANTERIOR LEADS T WAVE INVERSION NOW EVIDENT IN LATERAL LEADS Confirmed by ANGIE POLANCO, RAJI ([id number]) on 07/03/2018 10:39:44 AM Referred By: Bong Proctor Confirmed By:RAJI ADAMS MD
--- NOTE | 2018-07-03 11:19 | PN ---
Progress Note, Physician History of Present Illness: 53 yr old white man with HTN, HLD, obesity, DJD of the right hip undergoing elective right hip replacement. pt was medically stable prior to the procedure. After first incision, pt was noted to be desaturating, was laid supine with initiation of CPR, ROSC was achieved within 2 mins. pt was taken to the PACU intubated and sedated requiring phenylephrine and vasopressin peripherally for pressure support. sedation was achieved with precedex. pt was transferred to [facility] ICU for further monitoring. He became agitated, and was given Versed during transfer. As per , pt had changed his diet recently and was not eating or drinking fluids as much as he used to for the past two weeks. Last week ,in his dr's office, he was unable to urinate for several hours when asked to give a specimen because he was so "dry." pt has received sedation in the past during a colonoscopy with out adverse events. denies any recent complaints of cough, chest pain, palpitations, fever, abdominal pain, diarrhea, dysuria, travel outside the , prolonged car rides or plane rides within the last month. she was not sure if he had taken any NSAIDs during the last, but thinks likely not if he had been instructed by surgery not to do so. fmhx: sister with DM, father when pt was 12yrs old due to a pulmonary embolism ( was unsure of circumstances of PE, provoked vs unprovoked), mother had a pacemaker(unknown indication). was unsure of any other family hx of coagulopathy pmhx: HTN, HLD, denies hx of PR, CVA, or renal insufficiency Surghx: none All: NKDA Social: denies smoking, etoh, illicit drug use - Current Medication List Current Medications: Active Medications Al Hydroxide/Mg Hydroxide (Mylanta Oral Suspension -) 30 ml PO Q4H PRN PRN Reason: DYSPEPSIA Allopurinol (Zyloprim -) 100 mg PO DAILY [facility] Last Admin: 07/03/18 10:13 Dose: Not Given Amlodipine Besylate (Norvasc -) 10 mg PO DAILY [facility] Last Admin: 07/03/18 10:11 Dose: Not Given Aspirin (Asa -) 325 mg PO DAILY@0800 [facility] Last Admin: 07/03/18 10:14 Dose: Not Given Gemfibrozil (Lopid -) 600 mg PO BIDAC [facility] Last Admin: 07/03/18 06:36 Dose: Not Given Heparin Sodium (Porcine) (Heparin -) 5,000 unit SQ TID [facility] Phenylephrine HCl 20,000 mcg/ (Sodium Chloride) 250 mls @ 75 mls/hr IVPB ASDIR [facility]; Protocol Last Admin: 07/02/18 17:21 Dose: 25 mcg/min, 18.75 mls/hr Propofol (Diprivan -) 1,000,000 mcg in 100 mls @ 8.88 mls/hr IVPB TITR [facility]; Protocol Last Admin: 07/03/18 05:10 Dose: 30 mcg/kg/min, 26.641 mls/hr Famotidine/Sodium Chloride (Pepcid 20 Mg Premixed Ivpb -) 20 mg in 50 mls @ 100 mls/hr IVPB BID [facility] Last Admin: 07/03/18 10:13 Dose: 100 mls/hr Magnesium Hydroxide (Milk Of Magnesia -) 30 ml PO PRN PRN PRN Reason: CONSTIPATION Metoprolol Tartrate (Lopressor -) 25 mg PO BID [facility] Last Admin: 07/03/18 10:14 Dose: Not Given Multivitamins/Minerals/Vitamin C (Tab-A-Vit -) 1 tab PO DAILY [facility] Last Admin: 07/03/18 10:13 Dose: Not Given Ondansetron HCl (Zofran Injection) 4 mg IVPUSH Q6H PRN PRN Reason: NAUSEA Senna/Docusate Sodium (Pericolace -) 2 tablet PO BID [facility] Last Admin: 07/03/18 10:11 Dose: Not Given - Objective Vital Signs: Vital Signs Temperature 97.9 F 07/03/18 10:00 Pulse Rate 120 H 07/03/18 10:00 Respiratory Rate 20 07/03/18 10:00 Blood Pressure 136/79 07/03/18 10:00 O2 Sat by Pulse Oximetry (%) 96 07/03/18 09:45 Eyes: Yes: WNL, Conjunctiva Clear, EOM Intact HENT: Yes: WNL, Atraumatic, Normocephalic Neck: Yes: WNL, Supple, Trachea Midline Cardiovascular: Yes: WNL, Regular Rate and Rhythm Respiratory: Yes: WNL, Regular, CTA Bilaterally Gastrointestinal: Yes: WNL, Normal Bowel Sounds Genitourinary: Yes: WNL Musculoskeletal: Yes: WNL Extremities: Yes: WNL Edema: No Integumentary: Yes: WNL Neurological: Yes: Lethargy ...Motor Strength: WNL Psychiatric: Yes: WNL Labs: CBC, BMP 07/03/18 05:30 07/03/18 05:30 Assessment/Plan Problems (1) Cardiac arrest Assessment/Plan: extubated, sedated Presently on phenylephrine and Vasopressin; titrate off when hemodynamically stable. Hydration. F/u BUN/Cr, electrolytes (K+ 5.0; f/u serially). TNI serially (initially 0.08) EKG: normal sinus rhythm; normal study. ECHO several days ago: normal LVEF, LV size, wall thickness and motion, mild MR and TR; would repeat with attention to LVEF, regional wall motion. Code(s): I46.9 - CARDIAC ARREST, CAUSE UNSPECIFIED will need c. cath when stable (2) Hip replacement planned Code(s): [id number] - (3) Obesity Code(s): E66.9 - OBESITY, UNSPECIFIED (4) HTN (hypertension) Code(s): I10 - ESSENTIAL (PRIMARY) HYPERTENSION (5) Hyperlipidemia Code(s): E78.5 - HYPERLIPIDEMIA, UNSPECIFIED (6) Diabetes Code(s): E11.9 - TYPE 2 DIABETES MELLITUS WITHOUT COMPLICATIONS (7) Prerenal azotemia Assessment/Plan: Pt had reportedly radically changed his diet/fluid intake over the past few weeks in an attempt to lose weight prior to surgery. F/u renal status while IVF are administered. Code(s): R79.89 - OTHER SPECIFIED ABNORMAL FINDINGS OF BLOOD CHEMISTRY CC time 36 min
--- NOTE | 2018-07-03 12:29 | PN ---
Teaching Attending Note Name of Resident: Evelyn Patino ATTENDING PHYSICIAN STATEMENT I saw and evaluated the patient. I reviewed the resident's note and discussed the case with the resident. I agree with the resident's findings and plan as documented. SUBJECTIVE: Pt seen and examined in the ICU. Remained intubated overnight on phenylephrine and vasopressin gtts. Awake, alert off sedation, tolerated CPAP/PS trials with good RSBI and subsequently extubated during rounds. OBJECTIVE: Vital Signs Period Temp Pulse Resp BP Sys/Lau Pulse Ox Last 24 Hr 97.7 F-98.2 F 58-128 10-29 88-140/53-103 96-100 Intake & Output 06/30/18 07/01/18 07/02/18 07/03/18 23:59 23:59 23:59 23:59 Intake Total 2650 Output Total 640 1500 Balance 2009 -1499 Weight 147.871 kg Gen: extubated Heart: RRR Lung: distant breath sounds Abd: soft, obese, nontender Ext: no edema CBC, BMP 07/03/18 05:30 07/03/18 05:30 Active Medications Al Hydroxide/Mg Hydroxide (Mylanta Oral Suspension -) 30 ml PO Q4H PRN PRN Reason: DYSPEPSIA Allopurinol (Zyloprim -) 100 mg PO DAILY [facility] Last Admin: 07/03/18 10:13 Dose: Not Given Amlodipine Besylate (Norvasc -) 10 mg PO DAILY [facility] Last Admin: 07/03/18 10:11 Dose: Not Given Aspirin (Asa -) 325 mg PO DAILY@0800 [facility] Last Admin: 07/03/18 10:14 Dose: Not Given Gemfibrozil (Lopid -) 600 mg PO BIDAC [facility] Last Admin: 07/03/18 06:36 Dose: Not Given Heparin Sodium (Porcine) (Heparin -) 5,000 unit SQ TID [facility] Phenylephrine HCl 20,000 mcg/ (Sodium Chloride) 250 mls @ 75 mls/hr IVPB ASDIR [facility]; Protocol Last Admin: 07/02/18 17:21 Dose: 25 mcg/min, 18.75 mls/hr Propofol (Diprivan -) 1,000,000 mcg in 100 mls @ 8.88 mls/hr IVPB TITR [facility]; Protocol Last Admin: 07/03/18 05:10 Dose: 30 mcg/kg/min, 26.641 mls/hr Famotidine/Sodium Chloride (Pepcid 20 Mg Premixed Ivpb -) 20 mg in 50 mls @ 100 mls/hr IVPB BID [facility] Last Admin: 07/03/18 10:13 Dose: 100 mls/hr Magnesium Hydroxide (Milk Of Magnesia -) 30 ml PO PRN PRN PRN Reason: CONSTIPATION Metoprolol Tartrate (Lopressor -) 25 mg PO BID [facility] Last Admin: 07/03/18 10:14 Dose: Not Given Multivitamins/Minerals/Vitamin C (Tab-A-Vit -) 1 tab PO DAILY [facility] Last Admin: 07/03/18 10:13 Dose: Not Given Ondansetron HCl (Zofran Injection) 4 mg IVPUSH Q6H PRN PRN Reason: NAUSEA Senna/Docusate Sodium (Pericolace -) 2 tablet PO BID [facility] Last Admin: 07/03/18 10:11 Dose: Not Given ASSESSMENT AND PLAN: s/p Cardiopulmonary Arrest Likely Obstructive Sleep Apnea Acute Kidney Injury +Troponins likely Demand Ischemia Morbid Obesity - pt extubated - can d/c IVF - monitor urine output, creatinine - taper off pressors - echocardiogram - trend cardiac enzymes until peak - PO as tolerated - DVT prophylaxis - will need outpt PSG - can monitor on telemetry in PM if remains stable critical care time spent in reviewing chart, evaluating patient and formulating plan 35 min
--- NOTE | 2018-07-03 13:06 | ECHO ---
Name: SUSY GEORGE Exam:Adult Echocardiogram Study Date: 07/03/2018 09:39 AM Age: 53 yrs Reason For Study: S/P Cardiac Arrest Height: 74 in Weight: 326 lb BSA: 2.7 m2 MMode/2D Measurements & Calculations IVSd: 1.1 cm Ao root diam: 3.4 cm LVIDd: 3.7 cm LA dimension: 4.2 cm LVIDs: 2.3 cm LVPWd: 1.1 cm EDV(Teich): 56.4 ml LVOT diam: 2.2 cm ESV(Teich): 17.7 ml Doppler Measurements & Calculations Ao V2 max: 206.3 cm/sec LV V1 max P.7 mmHg Ao max P.0 mmHg LV V1 mean P.7 mmHg Ao V2 mean: 132.6 cm/sec LV V1 max: 139.2 cm/sec Ao mean P.4 mmHg LV V1 mean: 85.7 cm/sec Ao V2 VTI: 28.5 cm LV V1 VTI: 23.2 cm MARK(I,D): 3.1 cm2 MARK(V,D): 2.6 cm2 SV(LVOT): 88.4 ml Procedure A two-dimensional transthoracic echocardiogram with color flow and Doppler was performed. The study w as technically difficult with many images being suboptimal in quality. Left Ventricle The left ventricular size, thickness and function are normal. The left ventricle is hyperdynamic. Reg ional wall motion abnormalities cannot be excluded due to limited visualization. Right Ventricle The right ventricle is not well visualized. Atria The left atrium is mildly dilated. The right atrium is mildly dilated. Mitral Valve There is mild mitral valve thickening. The mitral valve is not well visualized. Tricuspid Valve The tricuspid valve is not well visualized. Aortic Valve The aortic valve is not well visualized. Pulmonic Valve The pulmonic valve is not well visualized. Great Vessels The aortic root is not well visualized. Pericardium/Pleura There is no pericardial effusion. Interpretation Summary The left ventricular size, thickness and function are normal The left ventricle is hyperdynamic. The left atrium is mildly dilated. The right atrium is mildly dilated. The tricuspid valve is not well visualized. The mitral valve is not well visualized. The study was technically difficult with many images being suboptimal in quality. The aortic valve is not well visualized. The pulmonic valve is not well visualized. The aortic root is not well visualized. Regional wall motion abnormalities cannot be excluded due to limited visualization. MD Chris Giron 07/03/2018 01:05 PM
[2018-07-03] MEDS: HEPARIN NA (PORCINE) 5,000 UNITS/ML 1ML VIAL SQ SCH ×2 (14:56→21:39)
[2018-07-03] MEDS ORDERED: FUROSEMIDE 40 MG/4 ML INJECTABLE VIAL IVPUSH ONE (19:50)
--- NOTE | 2018-07-03 19:51 | PN ---
Progress Note, Physician Chief Complaint: patient extubated today History of Present Illness: 53 yo male who was supposed to have right hip THR, developed cardiac arrest after being sedated and his surgery was cancelled. He was extubated today. The patient is still sleepy and groggy. - Current Medication List Current Medications: Active Medications Al Hydroxide/Mg Hydroxide (Mylanta Oral Suspension -) 30 ml PO Q4H PRN PRN Reason: DYSPEPSIA Allopurinol (Zyloprim -) 100 mg PO DAILY [facility] Last Admin: 07/03/18 10:13 Dose: Not Given Amlodipine Besylate (Norvasc -) 10 mg PO DAILY [facility] Last Admin: 07/03/18 10:11 Dose: Not Given Aspirin (Asa -) 325 mg PO DAILY@0800 [facility] Last Admin: 07/03/18 10:14 Dose: Not Given Furosemide (Lasix Injection -) 40 mg IVPUSH ONCE ONE Stop: 07/03/18 19:51 Gemfibrozil (Lopid -) 600 mg PO BIDAC [facility] Last Admin: 07/03/18 06:36 Dose: Not Given Heparin Sodium (Porcine) (Heparin -) 5,000 unit SQ TID [facility] Last Admin: 07/03/18 14:56 Dose: 5,000 unit Phenylephrine HCl 20,000 mcg/ (Sodium Chloride) 250 mls @ 75 mls/hr IVPB ASDIR [facility]; Protocol Last Admin: 07/02/18 17:21 Dose: 25 mcg/min, 18.75 mls/hr Propofol (Diprivan -) 1,000,000 mcg in 100 mls @ 8.88 mls/hr IVPB TITR [facility]; Protocol Last Admin: 07/03/18 05:10 Dose: 30 mcg/kg/min, 26.641 mls/hr Famotidine/Sodium Chloride (Pepcid 20 Mg Premixed Ivpb -) 20 mg in 50 mls @ 100 mls/hr IVPB BID [facility] Last Admin: 07/03/18 10:13 Dose: 100 mls/hr Dextrose/Sodium Chloride (D5-Ns -) 1,000 mls @ 42 mls/hr IV ASDIR PRO Magnesium Hydroxide (Milk Of Magnesia -) 30 ml PO PRN PRN PRN Reason: CONSTIPATION Metoprolol Tartrate (Lopressor -) 25 mg PO BID [facility] Last Admin: 07/03/18 10:14 Dose: Not Given Multivitamins/Minerals/Vitamin C (Tab-A-Vit -) 1 tab PO DAILY [facility] Last Admin: 07/03/18 10:13 Dose: Not Given Ondansetron HCl (Zofran Injection) 4 mg IVPUSH Q6H PRN PRN Reason: NAUSEA Senna/Docusate Sodium (Pericolace -) 2 tablet PO BID [facility] Last Admin: 07/03/18 10:11 Dose: Not Given - Objective Vital Signs: Vital Signs Temperature 99.9 F H 07/03/18 14:00 Pulse Rate 112 H 07/03/18 18:18 Respiratory Rate 20 07/03/18 18:18 Blood Pressure 150/76 07/03/18 18:18 O2 Sat by Pulse Oximetry (%) 96 07/03/18 09:45 Constitutional: Yes: Calm, Other (mildly sedated) Eyes: Yes: Conjunctiva Clear, EOM Intact HENT: Yes: Atraumatic, Normocephalic Neck: Yes: Supple, Trachea Midline Cardiovascular: Yes: Regular Rate and Rhythm, S1, S2 Respiratory: Yes: Regular, CTA Bilaterally Gastrointestinal: Yes: Normal Bowel Sounds, Soft, Abdomen, Obese. No: Hepatomegaly, Splenomegaly Breast(s): Yes: WNL Extremities: No: Calf Tenderness Neurological: Yes: Alert, Oriented Psychiatric: Yes: Alert, Oriented Labs: CBC, BMP 07/03/18 05:30 07/03/18 05:30 - ....Imaging Chest X-ray: Other (poor film, can not commet on the film due to poor quality) Problem List - Problems (1) Cardiac arrest Assessment/Plan: serial enzymes were mildly elevated ekg is unchanged echo unchanged compared to previous ECHO Cardiology follow up Code(s): I46.9 - CARDIAC ARREST, CAUSE UNSPECIFIED (2) HTN (hypertension) Assessment/Plan: norvasc 10 mg daily Code(s): I10 - ESSENTIAL (PRIMARY) HYPERTENSION (3) Obesity Assessment/Plan: despite morbid obesity the patient is not diabetic and the HB A1 c in June 2018 was 5.1 patient lost 50 lbs in the past month, cardiac etiology will be ruled out as a cause and further planning as per CArdiology surgery will be postponed until patient re optimized Code(s): E66.9 - OBESITY, UNSPECIFIED Qualifiers: Body mass index: BMI 40.0-44.9 (4) Hyperlipidemia Code(s): E78.5 - HYPERLIPIDEMIA, UNSPECIFIED (5) Acute kidney injury Assessment/Plan: creatinine on 06/30/18 1.16!! after stopping Lisinopril on 06/16/18 The patient has NOT been taking NSAIDS since March 2018 injury probably related to shock and cardiac arrest Code(s): N17.9 - ACUTE KIDNEY FAILURE, UNSPECIFIED (6) Leukocytosis Assessment/Plan: stress related most likely CXR shows consistently haziness in the left lung, not clear if congestive changes or aspiration? will not cover with ABX for now since there is no left shift repeat cbc in am Code(s): D72.829 - ELEVATED WHITE BLOOD CELL COUNT, UNSPECIFIED
[2018-07-03] MEDS: PHENYLEPHRINE HCL 20,000 MCG in SODIUM CHLORIDE 248 ML IVPB SCH (20:42)
[2018-07-03] MEDS ORDERED: PT OWN MED DRAWER 7, Y5N ONE (21:14)
[2018-07-04] MEDS: GEMFIBROZIL 600 MG TABLET (FP) PO SCH ×2 (06:43→17:23)
[2018-07-04] MEDS: HEPARIN NA (PORCINE) 5,000 UNITS/ML 1ML VIAL SQ SCH ×3 (06:44→21:40)
[2018-07-04 06:50] LABS: BASO % 0.6 % (0-2.0); EOS % 0.7 % (0-4.5); HEMATOCRIT 40.3 % (35.4-49); HEMOGLOBIN 13.6 GM/dL (11.7-16.9); LYMPH % 17.7 % (8-40); MCH 31.8 pg (25.7-33.7); MCHC 33.7 g/dl (32.0-35.9); MEAN CELL VOLUME 94.4 fl (80-96); MEAN PLT VOLUME 9.9 fl (7.5-11.1); MONO % 15.4 % (3.8-10.2); NEUT % 65.6 % (42.8-82.8); PLATELET COUNT 224 K/MM3 (134-434); RBC 4.27 M/mm3 (4.00-5.60); RDW 13.2 % (11.9-15.9); WHITE BLOOD COUNT 10.7 K/mm3 (4.0-10.0)
[2018-07-04] MEDS ORDERED: TRANEXAMIC ACID 1000 MG/10 ML VIAL IVPUSH ONE (07:14)
[2018-07-04] MEDS ORDERED: ONDANSETRON 4 MG/2 ML VIAL IVPUSH PRN (07:14)
[2018-07-04] MEDS ORDERED: PHENYLEPHRINE HCL 20,000 MCG in SODIUM CHLORIDE 248 ML IVPB SCH (07:14)
[2018-07-04] MEDS ORDERED: MAG HYDROX/AL HYDROX/SIMETH 30 ML UNIT-DOSE CUP PO PRN (07:14)
[2018-07-04] MEDS ORDERED: MAGNESIUM HYDROX 2400MG/30ML ORAL SUSPENSION 30 ML CUP PO PRN (07:14)
[2018-07-04] MEDS ORDERED: PROPOFOL 1,000,000 MCG/100 ML VIAL IVPB SCH (07:14)
[2018-07-04 07:16] LABS: ALBUMIN 3.8 g/dl (3.4-5.0); ALK PHOS 44 U/L (45-117); ANION GAP 9 MMOL/L (8-16); BILIRUBIN,TOTAL 0.8 mg/dL (0.2-1); BLOOD UREA NITROGEN 19 mg/dL (7-18); CALCIUM 9.3 mg/dL (8.5-10.1); CHLORIDE 103 mmol/L (98-107); CO2 27 mmol/L (21-32); CREATININE 0.8 mg/dL (0.55-1.3); GLUCOSE,RANDOM 102 mg/dL (74-106); PHOSPHOROUS 2.5 mg/dL (2.5-4.9); POTASSIUM 3.9 mmol/L (3.5-5.1); SGOT/AST 36 U/L (15-37); SGPT/ALT 31 U/L (13-61); SODIUM 140 mmol/L (136-145)
--- NOTE | 2018-07-04 08:53 | PN ---
Progress Note (short form) - Note Progress Note: Ortho Pt seen and examined s/p right attempted THR- extubated Selected Entries 07/04/18 06:00 Temperature 97.1 F L Pulse Rate 78 Respiratory 22 H Rate Blood Pressure 168/72 Laboratory Tests 07/04/18 05:30 WBC 10.7 H Hgb 13.6 Hct 40.3 Plt Count 224 dressing c/d/i, calf soft, nt nvi a/p PT eval wbat will follow
[2018-07-04] MEDS ORDERED: FAMOTIDINE 20 MG/50 ML IVPB 20 MG/50 ML MG IVPB SCH (10:00)
[2018-07-04] MEDS: ALLOPURINOL 100 MG TABLET (FP) PO SCH (10:18)
[2018-07-04] MEDS: METOPROLOL TARTRATE 25 MG TABLET (FP) PO SCH ×2 (10:18→21:39)
[2018-07-04] MEDS: amLODIPine BESYLATE 10 MG TABLET (FP) PO SCH (10:18)
[2018-07-04] MEDS: MULTIVITAMINS (DAILY MVI) TABLET (FP) PO SCH (10:19)
[2018-07-04] MEDS: SENNOSIDES/DOCUSATE COMBO (SENNA PLUS) TABLET (UD) PO SCH ×2 (10:19→21:39)
[2018-07-04] MEDS: ASPIRIN 325 MG TABLET PO SCH (10:19)
--- NOTE | 2018-07-04 11:49 | EKG ---
Test Reason : Blood Pressure : / mmHG Vent. Rate : 102 BPM Atrial Rate : 102 BPM P-R Int : 180 ms QRS Dur : 100 ms QT Int : 310 ms P-R-T Axes : 038 008 035 degrees QTc Int : 404 ms SINUS TACHYCARDIA WITH PREMATURE ATRIAL COMPLEXES ABNORMAL ECG WHEN COMPARED WITH ECG OF 03-JUL-2018 09:15, PREMATURE ATRIAL COMPLEXES ARE NOW PRESENT T WAVE INVERSION NOW EVIDENT IN ANTERIOR LEADS Confirmed by JOVITA POLANCO, JODY ([id number]) on 07/04/2018 11:49:02 AM Referred By: Bong Proctor Confirmed By:JODY HUSSEIN MD
--- NOTE | 2018-07-04 13:04 | PN ---
Progress Note (short form) - Note Progress Note: PULMONARY Denies shortness of breath. Some chest discomfort attributable to chest compression. Vital Signs Period Temp Pulse Resp BP Sys/Lau Pulse Ox Last 24 Hr 97.1 F-99.9 F 77-118 20-24 150-168/72-92 93-94 Gen: NAD at rest Heart: RRR Lung: decreased breath sounds at the bases Abd: soft, nontender Ext: no edema CBC, BMP 07/04/18 05:30 07/04/18 05:30 Active Medications Al Hydroxide/Mg Hydroxide (Mylanta Oral Suspension -) 30 ml PO Q4H PRN PRN Reason: DYSPEPSIA Allopurinol (Zyloprim -) 100 mg PO DAILY [facility] Last Admin: 07/04/18 10:18 Dose: 100 mg Amlodipine Besylate (Norvasc -) 10 mg PO DAILY [facility] Last Admin: 07/04/18 10:18 Dose: 10 mg Aspirin (Asa -) 325 mg PO DAILY@0800 [facility] Last Admin: 07/04/18 10:19 Dose: 325 mg Gemfibrozil (Lopid -) 600 mg PO BIDAC [facility] Heparin Sodium (Porcine) (Heparin -) 5,000 unit SQ TID [facility] Dextrose/Sodium Chloride (D5-Ns -) 1,000 mls @ 42 mls/hr IV ASDIR [facility] Last Admin: 07/04/18 00:30 Dose: 42 mls/hr Famotidine/Sodium Chloride (Pepcid 20 Mg Premixed Ivpb -) 20 mg in 50 mls @ 100 mls/hr IVPB BID [facility] Last Admin: 07/04/18 10:19 Dose: 100 mls/hr Magnesium Hydroxide (Milk Of Magnesia -) 30 ml PO PRN PRN PRN Reason: CONSTIPATION Metoprolol Tartrate (Lopressor -) 25 mg PO BID [facility] Last Admin: 07/04/18 10:18 Dose: 25 mg Multivitamins/Minerals/Vitamin C (Tab-A-Vit -) 1 tab PO DAILY [facility] Last Admin: 07/04/18 10:19 Dose: 1 tab Ondansetron HCl (Zofran Injection) 4 mg IVPUSH Q6H PRN PRN Reason: NAUSEA Senna/Docusate Sodium (Pericolace -) 2 tablet PO BID [facility] Last Admin: 03/28/19 10:19 Dose: 2 tablet A/P s/p Cardiopulmonary Arrest Likely Obstructive Sleep Apnea Acute Kidney Injury improving +Troponins likely Demand Ischemia Morbid Obesity - monitor urine output, creatinine - PO as tolerated - cardiac work up in progress - DVT prophylaxis - will need outpt PSG
[2018-07-04] MEDS ORDERED: MAGNESIUM HYDROX 2400MG/30ML ORAL SUSPENSION 30 ML CUP PO ONE (16:33)
--- NOTE | 2018-07-04 18:00 | PN ---
Progress Note, Physician Chief Complaint: patient extubated, tolerating well diet, did not have a bowel movement History of Present Illness: 53 yo male who was supposed to have right hip THR, developed cardiac arrest after being sedated and his surgery was cancelled. He was extubated and the patient is doing well now. He is complaining of constipation. According to the patient there is no pain in the right hip, and he has good urine output. The patient can ambulate using a walker - Current Medication List Current Medications: Active Medications Al Hydroxide/Mg Hydroxide (Mylanta Oral Suspension -) 30 ml PO Q4H PRN PRN Reason: DYSPEPSIA Allopurinol (Zyloprim -) 100 mg PO DAILY [facility] Last Admin: 07/04/18 10:18 Dose: 100 mg Amlodipine Besylate (Norvasc -) 10 mg PO DAILY [facility] Last Admin: 07/04/18 10:18 Dose: 10 mg Aspirin (Asa -) 325 mg PO DAILY@0800 [facility] Last Admin: 07/04/18 10:19 Dose: 325 mg Gemfibrozil (Lopid -) 600 mg PO BIDAC [facility] Last Admin: 07/04/18 17:23 Dose: 600 mg Heparin Sodium (Porcine) (Heparin -) 5,000 unit SQ TID [facility] Last Admin: 07/04/18 14:29 Dose: 5,000 unit Magnesium Hydroxide (Milk Of Magnesia -) 30 ml PO PRN PRN PRN Reason: CONSTIPATION Metoprolol Tartrate (Lopressor -) 25 mg PO BID [facility] Last Admin: 07/04/18 10:18 Dose: 25 mg Multivitamins/Minerals/Vitamin C (Tab-A-Vit -) 1 tab PO DAILY [facility] Last Admin: 07/04/18 10:19 Dose: 1 tab Ondansetron HCl (Zofran Injection) 4 mg IVPUSH Q6H PRN PRN Reason: NAUSEA Senna/Docusate Sodium (Pericolace -) 2 tablet PO BID [facility] Last Admin: 07/04/18 10:19 Dose: 2 tablet - Objective Vital Signs: Vital Signs Temperature 97.9 F 07/04/18 14:00 Pulse Rate 93 H 07/04/18 14:00 Respiratory Rate 20 07/04/18 10:01 Blood Pressure 136/86 07/04/18 14:00 O2 Sat by Pulse Oximetry (%) 94 L 07/04/18 16:03 Constitutional: Yes: No Distress, Calm Eyes: Yes: Conjunctiva Clear, EOM Intact HENT: Yes: Atraumatic, Normocephalic Neck: Yes: Supple, Trachea Midline Cardiovascular: Yes: Regular Rate and Rhythm, S1, S2 Respiratory: Yes: Regular, CTA Bilaterally Gastrointestinal: Yes: Normal Bowel Sounds, Soft, Abdomen, Obese Extremities: No: Calf Tenderness Edema: No Peripheral Pulses WNL: Yes Wound/Incision: Yes: Well Approximated (covered with an Aquacell patch) Psychiatric: Yes: Alert, Oriented Labs: CBC, BMP 07/04/18 05:30 07/04/18 05:30 Problem List - Problems (1) Cardiac arrest Assessment/Plan: serial enzymes downtrending ekg anterior wall inverted T waves echo unchanged from previous ECHO Cardiology follow up patient will be transferred for cardiac catheterism at [facility] Code(s): I46.9 - CARDIAC ARREST, CAUSE UNSPECIFIED (2) HTN (hypertension) Assessment/Plan: norvasc 10 mg daily Metoprolol 25 mg po bid Code(s): I10 - ESSENTIAL (PRIMARY) HYPERTENSION (3) Obesity Assessment/Plan: weight loss Code(s): E66.9 - OBESITY, UNSPECIFIED Qualifiers: Body mass index: BMI 40.0-44.9 (4) Hyperlipidemia Assessment/Plan: Lopid 600 mg po bid Code(s): E78.5 - HYPERLIPIDEMIA, UNSPECIFIED (5) Acute kidney injury Assessment/Plan: creatinine on 06/30/18 1.16!! after stopping Lisinopril on 06/16/18 The patient has NOT been taking NSAIDS since March 2018 injury probably related to shock and cardiac arrest Code(s): N17.9 - ACUTE KIDNEY FAILURE, UNSPECIFIED (6) Leukocytosis Assessment/Plan: stress related most likely resolved CXR back to baseline, no infiltrate , no pleural effusion Code(s): D72.829 - ELEVATED WHITE BLOOD CELL COUNT, UNSPECIFIED
[2018-07-05] MEDS ORDERED: PT OWN MED DRAWER 7, Y5N ONE (05:36)
[2018-07-05] MEDS: HEPARIN NA (PORCINE) 5,000 UNITS/ML 1ML VIAL SQ SCH ×2 (06:10→14:08)
--- NOTE | 2018-07-05 07:32 | PN ---
Progress Note, Physician Chief Complaint: Pt alert; has trouble remembering exactly what happened. He thought earlier that the hip surgery had been completed, was puzzled that no one had told him otherwise. His , at beside now, tells him that doctors repeatedly have informed him of what actually transpired. History of Present Illness: 53 yr old white man with HTN, HLD, obesity, DJD of the right hip undergoing elective right hip replacement. pt was medically stable prior to the procedure. After first incision, pt was noted to be desaturating, was laid supine with initiation of CPR, ROSC was achieved within 2 mins. pt was taken to the PACU intubated and sedated requiring phenylephrine and vasopressin peripherally for pressure support. sedation was achieved with precedex. pt was transferred to [facility] in [place] ICU for further monitoring. He became agitated, and was given Versed during transfer. As per , pt had changed his diet recently and was not eating or drinking fluids as much as he used to for the past two weeks. Last week ,in his dr's office, he was unable to urinate for several hours when asked to give a specimen because he was so "dry." pt has received sedation in the past during a colonoscopy with out adverse events. denies any recent complaints of cough, chest pain, palpitations, fever, abdominal pain, diarrhea, dysuria, travel outside the [place], prolonged car rides or plane rides within the last month. she was not sure if he had taken any NSAIDs during the last, but thinks likely not if he had been instructed by surgery not to do so. fmhx: sister with DM, father when pt was 12yrs old due to a pulmonary embolism ( was unsure of circumstances of PE, provoked vs unprovoked), mother had a pacemaker(unknown indication). was unsure of any other family hx of coagulopathy pmhx: HTN, HLD, denies hx of IA, CVA, or renal insufficiency Surghx: none All: NKDA Social: denies smoking, etoh, illicit drug use - Current Medication List Current Medications: Active Medications Al Hydroxide/Mg Hydroxide (Mylanta Oral Suspension -) 30 ml PO Q4H PRN PRN Reason: DYSPEPSIA Allopurinol (Zyloprim -) 100 mg PO DAILY [facility] Last Admin: 07/04/18 10:18 Dose: 100 mg Amlodipine Besylate (Norvasc -) 10 mg PO DAILY [facility] Last Admin: 07/04/18 10:18 Dose: 10 mg Aspirin (Asa -) 325 mg PO DAILY@0800 [facility] Last Admin: 07/04/18 10:19 Dose: 325 mg Gemfibrozil (Lopid -) 600 mg PO BIDAC [facility] Last Admin: 07/04/18 17:23 Dose: 600 mg Heparin Sodium (Porcine) (Heparin -) 5,000 unit SQ TID [facility] Last Admin: 07/05/18 06:10 Dose: 5,000 unit Magnesium Hydroxide (Milk Of Magnesia -) 30 ml PO PRN PRN PRN Reason: CONSTIPATION Metoprolol Tartrate (Lopressor -) 25 mg PO BID [facility] Last Admin: 07/04/18 21:39 Dose: 25 mg Multivitamins/Minerals/Vitamin C (Tab-A-Vit -) 1 tab PO DAILY [facility] Last Admin: 07/04/18 10:19 Dose: 1 tab Ondansetron HCl (Zofran Injection) 4 mg IVPUSH Q6H PRN PRN Reason: NAUSEA Senna/Docusate Sodium (Pericolace -) 2 tablet PO BID [facility] Last Admin: 07/04/18 21:39 Dose: 2 tablet - Objective Vital Signs: Vital Signs Temperature 98.4 F 07/05/18 05:28 Pulse Rate 76 07/05/18 05:28 Respiratory Rate 20 07/05/18 05:28 Blood Pressure 150/78 07/05/18 05:28 O2 Sat by Pulse Oximetry (%) 96 07/05/18 07:31 Constitutional: Yes: Anxious Eyes: Yes: WNL HENT: Yes: WNL Neck: Yes: WNL Cardiovascular: Yes: Regular Rate and Rhythm Respiratory: Yes: WNL Gastrointestinal: Yes: Soft ...Rectal Exam: Yes: Deferred Genitourinary: No: Anuria Breast(s): Yes: WNL Musculoskeletal: Yes: WNL, Joint Stiffness, Muscle Weakness, Other Extremities: Yes: Other (markedly decreased ROM) Edema: No Peripheral Pulses WNL: Yes Integumentary: Yes: Tattoos Neurological: Yes: Alert, Weakness Psychiatric: Yes: Alert Labs: CBC, BMP 07/04/18 05:30 07/04/18 05:30 Problem List - Problems (1) Cardiac arrest Assessment/Plan: Now off pressors. F/u BUN/Cr, electrolytes (K+ 5.0; f/u serially). TNI serially (initially 0.08; now >0.30) EKG: normal sinus rhythm; normal study. ECHO several days ago: normal LVEF, LV size, wall thickness and motion, mild MR and TR; would repeat with attention to LVEF, regional wall motion. Will transfer for coronary angiogram at [facility]. Code(s): I46.9 - CARDIAC ARREST, CAUSE UNSPECIFIED (2) Hip replacement planned Code(s): [id number] - (3) Obesity Code(s): E66.9 - OBESITY, UNSPECIFIED Qualifiers: Body mass index: BMI 40.0-44.9 (4) HTN (hypertension) Code(s): I10 - ESSENTIAL (PRIMARY) HYPERTENSION (5) Hyperlipidemia Assessment/Plan: start atorvastatin 80mg daily Code(s): E78.5 - HYPERLIPIDEMIA, UNSPECIFIED (6) Diabetes Code(s): E11.9 - TYPE 2 DIABETES MELLITUS WITHOUT COMPLICATIONS (7) Prerenal azotemia Assessment/Plan: Pt had reportedly radically changed his diet/fluid intake over the past few weeks in an attempt to lose weight prior to surgery. F/u renal status while IVF are administered; now markedly improved. Code(s): R79.89 - OTHER SPECIFIED ABNORMAL FINDINGS OF BLOOD CHEMISTRY
[2018-07-05] MEDS: GEMFIBROZIL 600 MG TABLET (FP) PO SCH (07:49)
[2018-07-05 11:16] VITALS: BP 130/82; PULSE 80; TEMP 98
[2018-07-05] MEDS: MULTIVITAMINS (DAILY MVI) TABLET (FP) PO SCH (11:16)
[2018-07-05] MEDS: SENNOSIDES/DOCUSATE COMBO (SENNA PLUS) TABLET (UD) PO SCH (11:16)
[2018-07-05] MEDS: METOPROLOL TARTRATE 25 MG TABLET (FP) PO SCH (11:17)
[2018-07-05] MEDS: ALLOPURINOL 100 MG TABLET (FP) PO SCH (11:17)
[2018-07-05] MEDS: ASPIRIN 325 MG TABLET PO SCH (11:17)
[2018-07-05] MEDS: amLODIPine BESYLATE 10 MG TABLET (FP) PO SCH (11:17)
--- NOTE | 2018-07-05 11:27 | PN ---
Progress Note, Physician History of Present Illness: PULMONARY ALERT,OOB-PRISCA,-SOB,+ CP SECONDARY TO COMPRESSIONS - Current Medication List Current Medications: Active Medications Al Hydroxide/Mg Hydroxide (Mylanta Oral Suspension -) 30 ml PO Q4H PRN PRN Reason: DYSPEPSIA Allopurinol (Zyloprim -) 100 mg PO DAILY [facility] Last Admin: 07/05/18 11:17 Dose: 100 mg Amlodipine Besylate (Norvasc -) 10 mg PO DAILY [facility] Last Admin: 07/05/18 11:17 Dose: 10 mg Aspirin (Asa -) 325 mg PO DAILY@0800 [facility] Last Admin: 07/05/18 11:17 Dose: 325 mg Gemfibrozil (Lopid -) 600 mg PO BIDAC [facility] Last Admin: 07/05/18 07:49 Dose: 600 mg Heparin Sodium (Porcine) (Heparin -) 5,000 unit SQ TID [facility] Last Admin: 07/05/18 06:10 Dose: 5,000 unit Magnesium Hydroxide (Milk Of Magnesia -) 30 ml PO PRN PRN PRN Reason: CONSTIPATION Metoprolol Tartrate (Lopressor -) 25 mg PO BID [facility] Last Admin: 07/05/18 11:17 Dose: 25 mg Multivitamins/Minerals/Vitamin C (Tab-A-Vit -) 1 tab PO DAILY [facility] Last Admin: 07/05/18 11:16 Dose: 1 tab Ondansetron HCl (Zofran Injection) 4 mg IVPUSH Q6H PRN PRN Reason: NAUSEA Senna/Docusate Sodium (Pericolace -) 2 tablet PO BID [facility] Last Admin: 07/05/18 11:16 Dose: 2 tablet - Objective Vital Signs: Vital Signs Temperature 98 F 07/05/18 11:15 Pulse Rate 80 07/05/18 11:15 Respiratory Rate 20 07/05/18 11:15 Blood Pressure 130/82 07/05/18 11:15 O2 Sat by Pulse Oximetry (%) 96 07/05/18 07:31 Constitutional: Yes: Calm, Obese Eyes: Yes: WNL HENT: Yes: WNL Neck: Yes: WNL Cardiovascular: Yes: Regular Rate and Rhythm, S1, S2 Respiratory: Yes: CTA Bilaterally Gastrointestinal: Yes: Normal Bowel Sounds, Soft, Abdomen, Obese Extremities: Yes: WNL Edema: Yes Labs: CBC, BMP Problem List - Problems (1) Acute kidney injury Code(s): N17.9 - ACUTE KIDNEY FAILURE, UNSPECIFIED (2) Cardiac arrest Code(s): I46.9 - CARDIAC ARREST, CAUSE UNSPECIFIED (3) Diabetes Code(s): E11.9 - TYPE 2 DIABETES MELLITUS WITHOUT COMPLICATIONS (4) HTN (hypertension) Code(s): I10 - ESSENTIAL (PRIMARY) HYPERTENSION (5) Obesity Code(s): E66.9 - OBESITY, UNSPECIFIED Qualifiers: Body mass index: BMI 40.0-44.9 Assessment/Plan A/P s/p Cardiopulmonary Arrest Likely Obstructive Sleep Apnea Acute Kidney Injury improving +Troponins likely Demand Ischemia Morbid Obesity - DVT prophylaxis - will need outpt PSG - Pt to be transferred to [place] for cardiac cath DR DORADO
[2018-07-05] MEDS ORDERED: oxyCODONE HCL 5 MG TABLET PO PRN (13:18)
--- NOTE | 2018-07-05 13:21 | DS ---
Physical Examination Vital Signs: Vital Signs Temperature 98 F 07/05/18 11:15 Pulse Rate 80 07/05/18 11:15 Respiratory Rate 20 07/05/18 11:15 Blood Pressure 130/82 07/05/18 11:15 O2 Sat by Pulse Oximetry (%) 96 07/05/18 07:31 Constitutional: Yes: Calm, Other (in moderate pain) Eyes: Yes: Conjunctiva Clear, EOM Intact HENT: Yes: Atraumatic, Normocephalic Neck: Yes: Supple, Trachea Midline Cardiovascular: Yes: Regular Rate and Rhythm, S1, S2 Respiratory: Yes: Regular, CTA Bilaterally Gastrointestinal: Yes: Normal Bowel Sounds, Soft, Abdomen, Obese Musculoskeletal: Yes: Other (precordial muscular pain) Extremities: No: Calf Tenderness Edema: No Peripheral Pulses WNL: Yes Neurological: Yes: Alert, Oriented Psychiatric: Yes: Alert, Oriented Labs: CBC, BMP 07/04/18 05:30 07/04/18 05:30 Discharge Summary Reason For Visit: OSTEOARTHRITIS Current Active Problems Acute kidney injury (Acute) Acute kidney injury (Acute) Cardiac arrest (Acute) Diabetes (Acute) HTN (hypertension) (Acute) Hip replacement planned (Acute) Hyperlipidemia (Acute) Leukocytosis (Acute) Obesity (Acute) Procedures: Principal: intubation, CPR, ECHO, EKG Other Procedures: right hip incision Hospital Course: 53 yo male with morbid obesity, HTN and dyslipidemia, admitted for right THR. The patient had cardiac arrest in the OR possibly due to Sleep Apnea. The procedure was cancelled. After resuscitation the patient developed demand ischemia and he will be transferred for cardiac cath to [facility] Medications Comprehensive Discharge Medication List: Ambulatory Orders Amlodipine Besylate 10 mg PO DAILY 10/30/16 Gemfibrozil [Lopid -] 600 mg PO BID 10/30/16 Lisinopril [Prinivil] 20 mg PO DAILY 10/30/16 Allopurinol [Zyloprim -] 100 mg PO DAILY 06/27/18 Metoprolol Tartrate 25 mg PO BID 06/27/18
[2018-07-05] MEDS ORDERED: ACETAMINOPHEN 325 MG TABLET (FP) PO PRN (13:28)
[2018-07-05] MEDS ORDERED: ACETAMINOPHEN 325 MG TABLET (FP) ONE (13:28)
== END 2018-07-05 15:00 | disposition short-term general hospital (02) | DRG 554 ==
LOC: FM/S 05:49 → JICU 14:53 → J4W 07-03 22:57
PROVIDERS: ADMIT Orthopaedic Surgery; ATTEND Orthopaedic Surgery
PROC: 5A12012 Performance of Cardiac Output, Single, Manual (ICD-10-PCS; 2018-07-02)
PROC: 0BH17EZ Insertion of Endotracheal Airway into Trachea, Via Natural or Artificial Opening (ICD-10-PCS; 2018-07-02)
PROC: 5A1935Z Respiratory Ventilation, Less than 24 Consecutive Hours (ICD-10-PCS; 2018-07-02)
PROC: 0YJC0ZZ Inspection of Right Upper Leg, Open Approach (ICD-10-PCS; principal; 2018-07-02 08:00)
DX: M16.11 Unilateral primary osteoarthritis, right hip (principal); E87.2 Acidosis; N17.9 Acute kidney failure, unspecified; I97.711 Intraoperative cardiac arrest during other surgery; Z68.41 Body mass index [BMI] 40.0-44.9, adult; I24.8 Other forms of acute ischemic heart disease; R09.02 Hypoxemia; G47.33 Obstructive sleep apnea (adult) (pediatric); E66.01 Morbid (severe) obesity due to excess calories; E87.5 Hyperkalemia; R00.1 Bradycardia, unspecified; D72.829 Elevated white blood cell count, unspecified; I10 Essential (primary) hypertension; Z53.09 Procedure and treatment not carried out because of other contraindication; Y83.8 Other surgical procedures as the cause of abnormal reaction of the patient, or of later complication, without mention of misadventure at the time of the procedure; Y79.3 Surgical instruments, materials and orthopedic devices (including sutures) associated with adverse incidents; E78.5 Hyperlipidemia, unspecified
CPT/HCPCS: 36415; 36600; 71045-TC-FY; 80048; 80053; 80061; 82550; 82553; 82803; 83036; 83721; 83735; 84100; 84443; 84484; 85025; 93005; 93010; 93306-TC; 94002; 94660; 94760; 97116-GP; 97162-GP; J1644; J7030

== ENCOUNTER 2019-02-12 15:29 | Inpatient (IN) | payer BC ==
--- NOTE | 2019-02-12 15:36 | PDOC ---
Rapid Medical Evaluation Time Seen by Provider: 02/12/19 15:33 Medical Evaluation: Allergies Allergy/AdvReac Type Severity Reaction Status Date / Time No Known Allergies Allergy Verified 10/30/16 08:52 02/12/19 15:33 CC: syncopal episode with dark stools PE: 4 word dyspnea. ?head trauma. MM pallor. Orders: cardiac w/u Patient will proceed to ER for continued evaluation. Discharge Disposition - Diagnosis Syncope and collapse - Referrals - Patient Instructions - Post Discharge Activity
[2019-02-12 16:25] LABS: BASO % 0.7 % (0-2.0); EOS % 1.5 % (0-4.5); HEMATOCRIT 30.9 % (35.4-49); HEMOGLOBIN 10.1 GM/dL (11.7-16.9); LYMPH % 25.4 % (8-40); MCH 32.9 pg (25.7-33.7); MCHC 32.8 g/dl (32.0-35.9); MEAN CELL VOLUME 100.4 fl (80-96); MEAN PLT VOLUME 9.4 fl (7.5-11.1); MONO % 9.1 % (3.8-10.2); NEUT % 63.3 % (42.8-82.8); PLATELET COUNT 314 K/MM3 (134-434); RBC 3.08 M/mm3 (4.00-5.60); RDW 14.6 % (11.9-15.9); WHITE BLOOD COUNT 15.4 K/mm3 (4.0-10.0)
[2019-02-12] MEDS ORDERED: LACTATED RINGERS SOLUTION 1000 ML INFUS.BAG IV ONE (16:41)
[2019-02-12 16:50] LABS: INR 1.05 (0.83-1.09); PROTHROMBIN TIME (PATIENT) 12.4 SEC (9.7-13.0)
[2019-02-12 16:53] LABS: ACTIVATED PTT 27.6 SECONDS (25.2-36.5)
[2019-02-12 16:59] LABS: BILIRUBIN,TOTAL 0.4 mg/dL (0.2-1); BLOOD UREA NITROGEN 87.7 mg/dL (7-18); CALCIUM 9.3 mg/dL (8.5-10.1); CREATININE 3.1 mg/dL (0.55-1.3); POTASSIUM 4.2 mmol/L (3.5-5.1); TOT PROT 7.5 g/dl (6.4-8.2)
[2019-02-12] MEDS ORDERED: ASPIRIN 81 MG CHEWABLE TABLETS PO ONE (17:01)
--- NOTE | 2019-02-12 17:10 | PDOC ---
Attending Attestation - Resident Resident Name: GutierrezAlvino - ED Attending Attestation I have performed the following: I have examined & evaluated the patient, The case was reviewed & discussed with the resident, I agree w/resident's findings & plan - HPI HPI: 02/12/19 17:07 54 yo male with morbid obesity, HTN and dyslipidemia, [place] s/p PCI to LAD (06/2018 ) on ASA and plavix, presenting with syncopal episode 3 days ago. at that time, malaised, lack of energy and appetite, very watery/loose "dark colored" diarrhea x 2-3 episodes per day previously at [facility], admitted for right THR c/b cardiac arrest in the OR in June 2018. After resuscitation the patient developed demand ischemia and he will be transferred for cardiac cath to [facility] found to have CO s/p PCI No cp/sob, sexton, dizziness, leg swelling - Physicial Exam PE: 02/12/19 17:06 Agree with the resident's HPI and PE as documented in the electronic medical record. NAD, awake and alert, malaised appearing. EOMI, PERRL, nl conjunctiva, anicteric ; neck supple. lungs clear, RRR, no murmur. abdomen soft nontender. No rebound, no guarding. Back nontender. GUALLPA x4, no focal neuro deficits. No peripheral edema. pale color for ethnicity, WWP. rectal done by resident. see attestation. neg guaiac for blood, brown stool - Medical Decision Making 02/12/19 17:10 Vital Signs Temp Pulse Resp BP Pulse Ox 98.7 F 124 H 19 107/52 L 98 02/12/19 15:34 02/12/19 15:34 02/12/19 15:34 02/12/19 15:34 02/12/19 15:34 DDx. syncope: considered interval abnormalities including short QTC or long QT syndrome, WPW, conduction abnormality, Brugada, ACS, PE, electrolyte disturbances, metabolic derangement. seizure, KNOWLEDGE ENGINEER lesion, CVA, ICH. orthostatics, NSTEMI, arrhythmia recent PCI for massive CO at [facility], EKG with sinus rhythm at 104 bpm, mild tachycardia, normal intervals, narrow QRS. nonspecific T wave abnormalities. small Q waves in inferior leads. no elevations or depressions. given IVF for orthostats, low Bp from volume loss/diarrhea trop elevated here >1.39, repeat in 3 hours remains stable, if not lower down to 1.1 treat as NSTEMI. 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 heparin, asa, will come to see. does not wish for transfer at this time. trend trops/EKG. admitting to Dr Marroquin, med tele obs, med management, serial trop/ekg, heparin /antiplatelet. 02/12/19 17:16 02/12/19 17:17 02/12/19 18:24 02/12/19 19:12 Heart Score/ECG Review #1 ECG reviewed & interpreted by me at: 15:40 General ECG Interpretation: Sinus Rhythm, Normal Intervals 02/12/19 17:15 EKG mild sinus tachycardia 104 bpm, no interval abnormalities, narrow QRS, Q waves in inferior leads, ST and T wave segments and morphology normal. Nonspecific T wave abnormalities
[2019-02-12] MEDS ORDERED: HEPARIN NA (PORCINE) 5,000 UNITS/ML 1ML VIAL IVPUSH PRN (17:13)
[2019-02-12] MEDS ORDERED: HEPARIN - 25,000 UNIT in SODIUM CHLORIDE 495 ML IV SCH (17:15)
--- NOTE | 2019-02-12 17:17 | CON.CARD ---
Consult Consult Specialty:: Cardiology Reason for Consultation:: syncope; elevated TNI; hx [place]/PCI - History of Present Illness Chief Complaint: syncope History of Present Illness: 54 yo white male with morbid obesity, HTN and dyslipidemia, [place] s/p PCI to LAD ( 06/2018) on ASA and plavix, presenting with syncopal episode 3 days ago. at that time, malaised, lack of energy and appetite, very watery/loose "dark colored" diarrhea x 2-3 episodes per day previously at [place], admitted for right THR c/b cardiac arrest in the OR in June 2018. After resuscitation the patient developed demand ischemia and he was transferred for cardiac cath to [facility]-->PCI of proximal LAD. No cp/sob, sexton, dizziness, leg swelling LAD drug-eluting stent placed 07/07/2018 at [facility] for an NSTEMI that resulted in the cancellation of right hip replacement. - History Source History Provided By: Patient, Medical Record Limitations to Obtaining History: No Limitations - Past Medical History Cardio/Vascular: Yes: CHF (ciastolic), HTN, Hyperlipdemia Pulmonary: Yes: Other (intuna=bated) Gastrointestinal: Yes: GI Bleed Renal/: Yes: Renal Inusuff Heme/Onc: Yes: Anemia - Past Surgical History Past Surgical History: Yes: Stent (proximal LAD 06/2018 ([place])) - Alcohol/Substance Use Hx Alcohol Use: No - Smoking History Smoking history: Former smoker (nonsmoker, but exposed to parent's 2nd hand smoke growing up) Have you smoked in the past 12 months: No Home Medications - Allergies Allergies/Adverse Reactions: Allergies Allergy/AdvReac Type Severity Reaction Status Date / Time No Known Allergies Allergy Verified 02/12/19 15:38 - Home Medications Home Medications: Ambulatory Orders Amlodipine Besylate 10 mg PO DAILY 10/30/16 Gemfibrozil [Lopid -] 600 mg PO BID 10/30/16 Allopurinol [Zyloprim -] 100 mg PO DAILY 06/27/18 Metoprolol Tartrate 25 mg PO BID 06/27/18 Amlodipine Besylate [Norvasc -] 10 mg PO DAILY tablet 07/05/18 Aspirin [ASA -] 325 mg PO DAILY@0800 tablet 07/05/18 Gemfibrozil [Lopid -] 600 mg PO BIDAC tablet 07/05/18 Heparin - 5,000 unit SQ TID vial 07/05/18 Magnesium Hydrox 2400MG/30Ml [Milk of Magnesia -] 30 ml PO PRN PRN cup Magnesium Hydrox 2400MG/30Ml [Milk of Magnesia -] 30 ml PO PRN PRN cup Metoprolol Tartrate [Lopressor -] 25 mg PO BID tablet 07/05/18 Multivitamins [Multivit ([facility] Formulary)] 1 tab PO DAILY tab 07/05/18 Sennosides/Docusate Sodium [Pericolace -] 2 tablet PO BID tablet 07/05/18 Sennosides/Docusate Sodium [Pericolace -] 2 tablet PO BID tablet 07/05/18 oxyCODONE HCL [Roxicodone -] 5 mg PO Q6H PRN #30 tablet MDD 4 07/05/18 Family Medical History Family Hx Cardiac Disorders: Mother ( of [place] in her 60s; smoker), Father ( of ?PE in his 50s; smoker) Review of Systems - Review of Systems Constitutional: reports: No Symptoms, Weakness Eyes: reports: No Symptoms HENT: reports: No Symptoms Neck: reports: No Symptoms Cardiovascular: reports: No Symptoms Respiratory: reports: Exercise Intolerance Gastrointestinal: reports: Rectal Bleeding Genitourinary: reports: No Symptoms Breasts: reports: No Symptoms Reported Musculoskeletal: reports: Joint Swelling, Muscle Weakness Integumentary: reports: No Symptoms Neurological: reports: No Symptoms Endocrine: reports: No Symptoms Hematology/Lymphatic: reports: No Symptoms Psychiatric: reports: No Symptoms - Risk Factors Known Risk Factors: Yes: Age, Diabetes Mellitus, Gender, Hypercholesterolemia, Hypertension, Physical Inactivity, Prior [place] /Emb Stroke, Other (morbid obesity) Vital Signs: Vital Signs Temperature 98.7 F 02/12/19 15:34 Pulse Rate 124 H 02/12/19 15:34 Respiratory Rate 19 02/12/19 15:34 Blood Pressure 107/52 L 02/12/19 15:34 O2 Sat by Pulse Oximetry (%) 98 02/12/19 15:34 Constitutional: Yes: Well Nourished, No Distress, Calm Eyes: Yes: WNL, Conjunctiva Clear, EOM Intact HENT: Yes: WNL, Atraumatic, Normocephalic Neck: Yes: WNL, Supple, Trachea Midline Respiratory: Yes: WNL, Regular, CTA Bilaterally Gastrointestinal: Yes: WNL, Normal Bowel Sounds Renal/: Yes: WNL Cardiovascular: Yes: WNL, Regular Rate and Rhythm Heart Sounds: Yes: S1, S2, S4 Murmur: Yes: Systolic Murmur, Grade 1 Musculoskeletal: Yes: WNL Extremities: Yes: WNL Edema: No Peripheral Pulses WNL: Yes Integumentary: Yes: WNL Neurological: Yes: WNL, Alert, Oriented ...Motor Strength: WNL Psychiatric: Yes: WNL, Alert, Oriented - Other Data Labs, Other Data: CBC, BMP 02/12/19 15:51 02/12/19 15:51 INR, PTT INR 1.05 (0.83-1.09) 02/12/19 15:51 Troponin, BNP 02/12/19 02/12/19 15:51 15:51 Troponin I 1.23 H* B-Natriuretic Peptide 199.1 H Troponin, BNP 02/12/19 02/12/19 15:51 15:51 Troponin I 1.23 H* B-Natriuretic Peptide 199.1 H Echo: Image Reviewed Ejection Fraction %: LVEF > or = 40 % Imaging - Results Chest X-ray: Image Reviewed EKG: Image Reviewed Problem List - Problems (1) Acute GI bleeding Assessment/Plan: Decrease in HB, with + stool quaic. Dedhydration (from diarrhea; pt denies being on diuretics); Syncopal episode may be related to the above. TNI (midly elevated since [place] 06/2018), 1.2 on admission, now 0.8; CK 194, with low MB relative index; demand stress from syncope, dehydration, anemia.. Plan: Discontinue IV heparin. Reinstitute ASA and clopidogrel (proximal LAD drug-eluting stent ) as soon as possbile (await clearance from GI). F/u Hb after hydration. Code(s): K92.2 - GASTROINTESTINAL HEMORRHAGE, UNSPECIFIED (2) History of [place] (myocardial infarction) Assessment/Plan: COntinue metoprolol Continue ASA and clopidogrel once cleared to do so by GI. Code(s): I25.2 - OLD MYOCARDIAL INFARCTION (3) H/O heart artery stent Assessment/Plan: NSTEMI-->s/p proximal LAD stent 07/07/2018 Code(s): Z95.5 - PRESENCE OF CORONARY ANGIOPLASTY IMPLANT AND GRAFT (4) Diastolic CHF Code(s): I50.30 - UNSPECIFIED DIASTOLIC (CONGESTIVE) HEART FAILURE (5) Syncope Assessment/Plan: see under "Acute GI bleeding" Dehydration, GI bleed. Plan? Rehydrate. F/u GI, hematology. Orhostatic vital signs. Is and Os. Code(s): R55 - SYNCOPE AND COLLAPSE (6) HTN (hypertension) Code(s): I10 - ESSENTIAL (PRIMARY) HYPERTENSION (7) Hyperlipidemia Assessment/Plan: Start atorvastatin; aggressive LDL lowering (hx NSTEMI, prosimal LAD stent). Code(s): E78.5 - HYPERLIPIDEMIA, UNSPECIFIED (8) Obesity Assessment/Plan: Through dieting, pt, who weighed over 400 lbs last [place], is now 295 lbs. Code(s): E66.9 - OBESITY, UNSPECIFIED Qualifiers: Body mass index: BMI 40.0-44.9
--- NOTE | 2019-02-12 17:21 | PDOC ---
History of Present Illness - General Chief Complaint: Syncope/Near Syncope Stated Complaint: SENT BY PCP/ BLACK STOOL Time Seen by Provider: 02/12/19 15:33 History Source: Patient, Spouse ( present at bedside.) Exam Limitations: No Limitations - History of Present Illness Initial Comments: HPI: 54 y/o male presenting to [facility] ER complaining of passing out on Sunday afternoon while voiding. Pt reports he fell forward. Able to stand afterward. Denies tongue trauma or incontinence. Further endorses two episodes of dark diarrhea, last was yesterday. Over the course of the past several days, pt has been experiencing chills, generalized weakness, and SOB w/ exertion. Denies orthopnea, paroxysmal nocturnal dyspnea, or bilateral leg swelling. 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 [facility] Hx: - CAD s/p stent following cardiac arrest June 2018. Cath placed at [facility]. - HTN - HLD - S/p hip replacement Review of Systems: In addition to that documented in the HPI above, the additional ROS was obtained : Constitutional- Denies fevers or diaphoresis Head- Denies vision changes, bleeding gums ENMT- Denies sore throat CV- Denies chest pain Resp- Denies coughing or sneezing GI- Denies vomiting or diarrhea - Denies painful urination, hematuria MSK- Denies recent pain to extremities Skin- Denies new rashes Neuro- Denies new numbness or tingling or weakness Endocrine- Denies polyuria Heme- Denies bleeding or bruising Physical Examination: Constitutional- Adult male in no acute distress or obvious discomfort. Obese body habitus. Found semi-fowlers on hospital bed. Answered all questions appropriately and completely. Head- Normocephalic. No obvious external signs of trauma. Eyes- Conjunctiva pink, moist, and not injected. Neck- Supple, trachea is midline. No JVD. Cardiovascular / Chest- Regular rate and regular rhythm. No murmur, rubs, clicks , or gallops. Peripheral pulses- radial pulses full. Trace pretibial edema bilaterally. Respiratory- Breathing unlabored, but became tachypneic when standing up from bed. Equal chest rise and fall. Clear to auscultation bilaterally. No stridor, no wheezing, no rhonchi. Gastrointestinal- abdomen is soft, non-tender, non-distended. Male Rectal: Good sphincter tone with no anal, perineal or rectal lesions. Brown feces. No obvious melena or blood. wool supplier chaperoned exam. Neuro- Alert and oriented x4. Moving all four extremities spontaneously. Skin- Warm, dry, and intact. Psych- Affect- appropriate. Mood- normal. Speech was non-labored, non- pressured. MDM: *Reviewed vital signs, nursing notes, and prior visit documentation (if available). 54 y/o male presenting with syncope, weakness, chills, and orthostatic symptoms for the past three days. Afebrile. Vitals remarkable for tachycardia without hypotension. Trended downward without intervention. Physical exam as described above. SFOB negative. H/H within normal limits. Low suspicion for acute GI bleed. No ischemic changes on EKG, but troponin elevated above trend previously documented. Possibly secondary to decreased renal function. Previous renal function within normal limits. Possibly in acute renal failure. Ordered LR IVFB. Lactic acid elevated. Suspect also secondary to acute renal failure. Doubt infectious etiology. 12 Feb 2019 17:10 PM Telephone discussion with Dr. Harvey. Verbally appraised of the pts HPI, ED course, and current plan of management. Requested pt be admitted to telemetry and started on unfractionated heparin. Did not believe pt needed to be emergently transferred to PCI center. 12 Feb 2019 17:25 PM Telephone discussion with Dr. Chavis. Verbally appraised of the pts HPI, ED course, and current plan of management. Will admit pt to telemetry. No additional orders requested. Two hour troponin pending at the time of admission. Alvino Gutierrez M.D., PGY2 Emergency Medicine Resident 02/12/19 19:03 Past History - Past Medical History Allergies/Adverse Reactions: Allergies Allergy/AdvReac Type Severity Reaction Status Date / Time No Known Allergies Allergy Verified 02/12/19 15:38 Home Medications: Ambulatory Orders Amlodipine Besylate 10 mg PO DAILY 10/30/16 Gemfibrozil [Lopid -] 600 mg PO BID 10/30/16 Allopurinol [Zyloprim -] 100 mg PO DAILY 06/27/18 Metoprolol Tartrate 25 mg PO BID 06/27/18 Amlodipine Besylate [Norvasc -] 10 mg PO DAILY tablet 07/05/18 Aspirin [ASA -] 325 mg PO DAILY@0800 tablet 07/05/18 Gemfibrozil [Lopid -] 600 mg PO BIDAC tablet 07/05/18 Heparin - 5,000 unit SQ TID vial 07/05/18 Magnesium Hydrox 2400MG/30Ml [Milk of Magnesia -] 30 ml PO PRN PRN cup Magnesium Hydrox 2400MG/30Ml [Milk of Magnesia -] 30 ml PO PRN PRN cup Metoprolol Tartrate [Lopressor -] 25 mg PO BID tablet 07/05/18 Multivitamins [Multivit ([facility] Formulary)] 1 tab PO DAILY tab 07/05/18 Sennosides/Docusate Sodium [Pericolace -] 2 tablet PO BID tablet 07/05/18 Sennosides/Docusate Sodium [Pericolace -] 2 tablet PO BID tablet 07/05/18 oxyCODONE HCL [Roxicodone -] 5 mg PO Q6H PRN #30 tablet MDD 4 07/05/18 Anemia: No Asthma: No Cancer: No Cardiac Disorders: No CVA: No COPD: No CHF: No Dementia: No Diabetes: No GI Disorders: No Disorders: No HTN: Yes Hypercholesterolemia: No Liver Disease: No Seizures: No Thyroid Disease: No - Surgical History Abdominal Surgery: No Appendectomy: No Cardiac Surgery: No Cholecystectomy: No Lung Surgery: No Neurologic Surgery: No Orthopedic Surgery: No - Psycho Social/Smoking Cessation Hx Smoking History: Never smoked Have you smoked in the past 12 months: No Information on smoking cessation initiated: Yes Hx Alcohol Use: No Drug/Substance Use Hx: No Substance Use Type: Prescribed Hx Substance Use Treatment: No *Physical Exam - Vital Signs Last Vital Signs Temp Pulse Resp BP Pulse Ox 98.7 F 124 H 19 107/52 L 98 02/12/19 15:34 02/12/19 15:34 02/12/19 15:34 02/12/19 15:34 02/12/19 15:34 Vital Signs - Vital Signs #1 Blood Pressure: 106/58 (@16:31) MAP: 74 BP Location: Right Arm Blood Pressure Position: Sitting Pulse Rate: 94 Respiratory Rate: 19 O2 Sat by Pulse Oximetry (%): 99 Oxygen Delivery Method: Room Air #2 Pulse Rate: 92 (@18:46) ED Treatment Course - LABORATORY CBC & Chemistry Diagram: 02/12/19 15:51 02/12/19 15:51 - ADDITIONAL ORDERS Additional order review: Laboratory Results 02/12/19 02/12/19 02/12/19 16:19 15:51 15:51 PT with INR INR PTT (Actin FS) Sodium 134 L Potassium 4.2 Chloride 103 Carbon Dioxide 19 L Anion Gap 12 BUN 87.7 H Creatinine 3.1 H Est GFR (CKD-EPI)AfAm 25.07 Est GFR (CKD-EPI)NonAf 21.63 Random Glucose 107 H Calcium 9.3 Magnesium 2.0 Total Bilirubin 0.4 AST 20 ALT 17 Alkaline Phosphatase 47 Creatine Kinase 194 Creatine Kinase Index 1.8 CK-MB (CK-2) 3.5 Troponin I 1.23 H* B-Natriuretic Peptide 199.1 H Total Protein 7.5 Albumin 4.0 Stool Occult Blood Negative 02/12/19 15:51 PT with INR 12.40 INR 1.05 PTT (Actin FS) 27.6 Sodium Potassium Chloride Carbon Dioxide Anion Gap BUN Creatinine Est GFR (CKD-EPI)AfAm Est GFR (CKD-EPI)NonAf Random Glucose Calcium Magnesium Total Bilirubin AST ALT Alkaline Phosphatase Creatine Kinase Creatine Kinase Index CK-MB (CK-2) Troponin I B-Natriuretic Peptide Total Protein Albumin Stool Occult Blood 02/12/19 15:51 RBC 3.08 L MCV 100.4 H MCHC 32.8 RDW 14.6 D MPV 9.4 Neutrophils % 63.3 Lymphocytes % 25.4 D Monocytes % 9.1 Eosinophils % 1.5 D Basophils % 0.7 - RADIOLOGY Radiology Studies Ordered: Category Date Time Status CHEST X-RAY PORTABLE* [RAD] Stat Radiology 02/12/19 16:31 Ordered - Medications Given in the ED: ED Medications Discontinued Medications Generic Name Dose Route Start Last Admin Trade Name Freq PRN Reason Stop Dose Admin Lactated Ringer's 1,000 ml 02/12/19 16:41 02/12/19 16:45 Lactated Ringers Solution IV 02/12/19 16:42 1,000 ml ONCE ONE Administration Discharge - Discharge Information Problems reviewed: Yes Clinical Impression/Diagnosis: Syncope and collapse, NSTEMI (non-ST elevated myocardial infarction), Elevated troponin level Acute renal failure Qualifiers: Acute renal failure type: unspecified Qualified Code(s): N17.9 - Acute kidney failure, unspecified Condition: Stable - Admission Yes - Follow up/Referral - Patient Discharge Instructions - Post Discharge Activity
[2019-02-12] MEDS ORDERED: HEPARIN NA (PORCINE) 5,000 UNITS/ML 1ML VIAL ONE (17:27)
[2019-02-12] MEDS ORDERED: HEPARIN INFUSION - 25,000 UNITS/500 ML INFUS.BAG IVPB ONE (17:27)
[2019-02-12] MEDS ORDERED: ASPIRIN 325 MG ENTERIC COATED TABLET (FP) ONE (17:27)
[2019-02-12] MEDS: HEPARIN NA (PORCINE) 5,000 UNITS/ML 1ML VIAL IVPUSH PRN (17:30)
--- NOTE | 2019-02-12 20:25 | HP ---
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 on 07/07/2018. Patient had subsequent cardiac catheterization and stenting on 07/07/2018. During the night of February 11 patient had a syncope while trying to get up from bed. The episode was followed by extreme weakness, chills and black diarrheic stools. He denies any chest pain or palpitations and reports no abdominal pain associated with the episode. Patient called my office yesterday afternoon and was advised to hold his Plavix and present to ER for evaluation. He did not take his Plavix today. Currently he is in his 8th month of Plavix post stenting. The patient has been on a diet trying to lose weight for right hip surgery. He lost approximately 70 lbs over the past year and 24 lbs since June and accomplished that by decreasing his number of meals to 1-2 meals a day and replacing a meal with shakes and popcorn. During my examination he is mildly uncomfortable due to right hip pain but he denies chest pain, or abdominal pain. History Source: Patient Limitations to Obtaining History: No Limitations - Past Medical History Cardiovascular: Yes: HTN, Hyperlipdemia, [place] (Cardiac arrest June 2018), Other (Cardiac arrest) Pulmonary: Yes: Other (intuna=bated) Musculoskeletal: Yes: Osteoarthritis (of the right hip) - Smoking History Smoking history: Never smoked Have you smoked in the past 12 months: No - Alcohol/Substance Use Hx Alcohol Use: No Home Medications - Allergies Allergies/Adverse Reactions: Allergies Allergy/AdvReac Type Severity Reaction Status Date / Time No Known Allergies Allergy Verified 02/12/19 15:38 - Home Medications Home Medications: Ambulatory Orders Amlodipine Besylate 10 mg PO DAILY 10/30/16 Gemfibrozil [Lopid -] 600 mg PO BID 10/30/16 Allopurinol [Zyloprim -] 100 mg PO DAILY 06/27/18 Metoprolol Tartrate 25 mg PO BID 06/27/18 Amlodipine Besylate [Norvasc -] 10 mg PO DAILY tablet 07/05/18 Aspirin [ASA -] 325 mg PO DAILY@0800 tablet 07/05/18 Gemfibrozil [Lopid -] 600 mg PO BIDAC tablet 07/05/18 Heparin - 5,000 unit SQ TID vial 07/05/18 Magnesium Hydrox 2400MG/30Ml [Milk of Magnesia -] 30 ml PO PRN PRN cup Magnesium Hydrox 2400MG/30Ml [Milk of Magnesia -] 30 ml PO PRN PRN cup Metoprolol Tartrate [Lopressor -] 25 mg PO BID tablet 07/05/18 Multivitamins [Multivit ([facility] Formulary)] 1 tab PO DAILY tab 07/05/18 Sennosides/Docusate Sodium [Pericolace -] 2 tablet PO BID tablet 07/05/18 Sennosides/Docusate Sodium [Pericolace -] 2 tablet PO BID tablet 07/05/18 oxyCODONE HCL [Roxicodone -] 5 mg PO Q6H PRN #30 tablet MDD 4 07/05/18 Review of Systems - Review of Systems Constitutional: reports: Weakness, Other (chills) Eyes: reports: No Symptoms HENT: reports: No Symptoms Neck: reports: No Symptoms Cardiovascular: denies: Chest Pain Respiratory: denies: Orthopnea, PND, SOB Gastrointestinal: reports: Diarrhea, Melena, Other (black stool diarrhea) Genitourinary: reports: No Symptoms Musculoskeletal: reports: Other (right hip pain) Integumentary: reports: No Symptoms Endocrine: reports: No Symptoms Hematology/Lymphatic: reports: No Symptoms Psychiatric: reports: No Symptoms Physical Examination Vital Signs: Vital Signs Temperature 98.7 F 02/12/19 15:34 Pulse Rate 94 H 02/12/19 19:04 Respiratory Rate 19 02/12/19 19:04 Blood Pressure 106/58 L 02/12/19 19:04 O2 Sat by Pulse Oximetry (%) 99 02/12/19 19:04 Constitutional: Yes: Calm, Obese Eyes: Yes: WNL Cardiovascular: Yes: Regular Rate and Rhythm, S1, S2 Respiratory: Yes: Regular, CTA Bilaterally, On Nasal O2 Gastrointestinal: Yes: Soft, Abdomen, Obese, Hyperactive Bowel Sounds, Other ( rectal exam: empty rectal vault, minimal trace of stool on the glove, sent for analysis). No: Palpable Mass, Tenderness, Tenderness, Rebound Musculoskeletal: Yes: Muscle Weakness, Other (right hip pain) Extremities: No: Calf Tenderness Edema: No Peripheral Pulses WNL: Yes Integumentary: Yes: WNL Neurological: Yes: Alert, Oriented Psychiatric: Yes: Alert, Oriented Labs: CBC, BMP 02/12/19 15:51 02/12/19 15:51 Imaging - Results Chest X-ray: Image Reviewed (god insiratory effore, no cardiomegaly, no pleural effusion, no infiltrate) EKG: Other (sinus tachycardia, 104 b/min, KIMBERLI, normal NE interval, QRS axis at 31, good R wave progression, hyperacute T waves in V2, V3 , othrwise no cahnges compared to previous EKG) Problem List - Problems (1) Syncope Assessment/Plan: most likely due to orthostatic hypotension and dehydration Iv fluids D51/2 NS at 75 cc/hr repeat labs in am Code(s): R55 - SYNCOPE AND COLLAPSE (2) Intestinal bleeding Assessment/Plan: Gastroenterology consult requested serial CBC, patient's baseline h/h are ( 06/2018), Plavix and ASA are on hold for now Protonix 40 mg iv drip serial Hemocult heparin drip was started by ER , will not change since patient also had elevated cardiac enzymes and there is no strong evidence for acute bleeding as of now Code(s): K92.2 - GASTROINTESTINAL HEMORRHAGE, UNSPECIFIED (3) Demand ischemia Assessment/Plan: serial cardiac enzymes, EKG heparin started by ER start Metoprolol at a lower dose 25 g bid Code(s): I24.8 - OTHER FORMS OF ACUTE ISCHEMIC HEART DISEASE (4) Leukocytosis Assessment/Plan: most likely reactive leukocytosis repeat CBC in am Code(s): D72.829 - ELEVATED WHITE BLOOD CELL COUNT, UNSPECIFIED (5) Azotemia Code(s): R79.89 - OTHER SPECIFIED ABNORMAL FINDINGS OF BLOOD CHEMISTRY (6) Azotemia Assessment/Plan: related to dehydration and possibly to bleeding continue IV Hydration while monitoring H/H hold Lisinopril for now Code(s): R79.89 - OTHER SPECIFIED ABNORMAL FINDINGS OF BLOOD CHEMISTRY (7) Tachycardia Assessment/Plan: iv hydration type and cross match serial repeat CBC serial stool for occult blood Code(s): R00.0 - TACHYCARDIA, UNSPECIFIED
[2019-02-12] MEDS ORDERED: DEXTROSE 5%-0.45% SALINE 1,000 ML IV SCH (20:30)
[2019-02-12] MEDS ORDERED: PANTOPRAZOLE SODIUM 40 MG VIAL ONE (22:24)
[2019-02-12] MEDS: PANTOPRAZOLE SODIUM 80 MG in SODIUM CHLORIDE 100 ML IVPB SCH (22:40)
[2019-02-13 01:31] LABS: INR 1.08 (0.83-1.09); PROTHROMBIN TIME (PATIENT) 12.7 SEC (9.7-13.0)
[2019-02-13 01:34] LABS: ACTIVATED PTT 31.5 SECONDS (25.2-36.5)
[2019-02-13 02:39] LABS: URINE APPEARANCE CLEAR; URINE BILIRUBIN NEGATIVE (NEGATIVE); URINE COLOR YELLOW; URINE GLUCOSE (UA) NEGATIVE (NEGATIVE); URINE KETONE NEGATIVE (NEGATIVE); URINE LEUK ESTERASE NEGATIVE (NEGATIVE); URINE NITRITE NEGATIVE (NEGATIVE); URINE PROTEIN NEGATIVE (NEGATIVE); URINE UROBILINOGEN 0.2 mg/dL (0.2-1.0)
[2019-02-13] MEDS: HEPARIN NA (PORCINE) 5,000 UNITS/ML 1ML VIAL IVPUSH PRN (03:45)
[2019-02-13 06:38] VITALS: BMI 37.9
[2019-02-13 06:42] LABS: BASO % 0.9 % (0-2.0); EOS % 2.2 % (0-4.5); HEMATOCRIT 26.9 % (35.4-49); HEMOGLOBIN 9.1 GM/dL (11.7-16.9); LYMPH % 33.7 % (8-40); MCH 33.7 pg (25.7-33.7); MCHC 33.9 g/dl (32.0-35.9); MEAN CELL VOLUME 99.4 fl (80-96); MEAN PLT VOLUME 9.4 fl (7.5-11.1); MONO % 9.3 % (3.8-10.2); NEUT % 53.9 % (42.8-82.8); PLATELET COUNT 279 K/MM3 (134-434); WHITE BLOOD COUNT 13.3 K/mm3 (4.0-10.0)
[2019-02-13 07:09] LABS: ALBUMIN 3.7 g/dl (3.4-5.0); BILIRUBIN,TOTAL 0.9 mg/dL (0.2-1); BLOOD UREA NITROGEN 75.9 mg/dL (7-18); CALCIUM 8.9 mg/dL (8.5-10.1); CREATININE 2.1 mg/dL (0.55-1.3); POTASSIUM 3.9 mmol/L (3.5-5.1); TOT PROT 6.8 g/dl (6.4-8.2)
[2019-02-13] MEDS ORDERED: ACETAMINOPHEN 325 MG TABLET (FP) PO PRN (08:40)
[2019-02-13] MEDS ORDERED: PANTOPRAZOLE SODIUM 160 MG in SODIUM CHLORIDE 290 ML IVPB SCH (10:00)
[2019-02-13] MEDS: PANTOPRAZOLE SODIUM 80 MG in SODIUM CHLORIDE 100 ML IVPB SCH ×2 (11:33→16:14)
[2019-02-13] MEDS: ATORVASTATIN CA 40 MG TABLET (FP) PO SCH ×2 (11:34→11:35)
[2019-02-13] MEDS: SODIUM CHLORIDE 1,000 ML IV SCH ×2 (11:35→21:03)
[2019-02-13] MEDS: METOPROLOL TARTRATE 25 MG TABLET (FP) PO SCH ×2 (11:35→21:03)
[2019-02-13] MEDS: oxyCODONE HCL 5 MG TABLET PO PRN ×2 (11:36→21:05)
--- NOTE | 2019-02-13 11:46 | EKG ---
Test Reason : Blood Pressure : / mmHG Vent. Rate : 089 BPM Atrial Rate : 089 BPM P-R Int : 150 ms QRS Dur : 082 ms QT Int : 346 ms P-R-T Axes : 028 021 039 degrees QTc Int : 420 ms POOR DATA QUALITY, INTERPRETATION MAY BE ADVERSELY AFFECTED SINUS RHYTHM WITH PREMATURE SUPRAVENTRICULAR COMPLEXES OTHERWISE NORMAL ECG WHEN COMPARED WITH ECG OF 13-FEB-2019 00:05, PREMATURE SUPRAVENTRICULAR COMPLEXES ARE NOW PRESENT Confirmed by JODY HUSSEIN MD ([id number]) on 02/13/2019 11:45:56 AM Referred By: VINNY NOGUEIRA DR Confirmed By:JODY HUSSEIN MD
--- NOTE | 2019-02-13 11:50 | EKG ---
Test Reason : Blood Pressure : / mmHG Vent. Rate : 085 BPM Atrial Rate : 085 BPM P-R Int : 182 ms QRS Dur : 096 ms QT Int : 376 ms P-R-T Axes : 042 024 029 degrees QTc Int : 447 ms POOR DATA QUALITY, INTERPRETATION MAY BE ADVERSELY AFFECTED NORMAL SINUS RHYTHM NORMAL ECG WHEN COMPARED WITH ECG OF 12-FEB-2019 15:39, PREMATURE SUPRAVENTRICULAR COMPLEXES ARE NO LONGER PRESENT Confirmed by JOVITA POLANCO, JODY ([id number]) on 02/13/2019 11:49:33 AM Referred By: Confirmed By:JODY HUSSEIN MD
--- NOTE | 2019-02-13 11:55 | EKG ---
Test Reason : Blood Pressure : / mmHG Vent. Rate : 104 BPM Atrial Rate : 104 BPM P-R Int : 172 ms QRS Dur : 092 ms QT Int : 322 ms P-R-T Axes : 055 031 063 degrees QTc Int : 423 ms SINUS TACHYCARDIA WITH PREMATURE SUPRAVENTRICULAR COMPLEXES OTHERWISE NORMAL ECG WHEN COMPARED WITH ECG OF 03-JUL-2018 12:21, NONSPECIFIC T WAVE ABNORMALITY NO LONGER EVIDENT IN INFERIOR LEADS T WAVE INVERSION NO LONGER EVIDENT IN ANTEROLATERAL LEADS Confirmed by JODY HUSSEIN MD ([id number]) on 02/13/2019 11:55:20 AM Referred By: Confirmed By:JODY HUSSEIN MD
[2019-02-13 12:57] LABS: HEMATOCRIT 25.8 % (35.4-49); HEMOGLOBIN 8.6 GM/dL (11.7-16.9); MCH 33.7 pg (25.7-33.7); MCHC 33.5 g/dl (32.0-35.9); MEAN CELL VOLUME 100.7 fl (80-96); MEAN PLT VOLUME 8.4 fl (7.5-11.1); PLATELET COUNT 279 K/MM3 (134-434); RBC 2.56 M/mm3 (4.00-5.60); RDW 14.1 % (11.9-15.9); WHITE BLOOD COUNT 11.4 K/mm3 (4.0-10.0)
--- NOTE | 2019-02-13 14:40 | CON.GI ---
Consult Consult Specialty:: GI Referred by:: Dr. Mcconnell Reason for Consultation:: Melena and anemia - History of Present Illness Chief Complaint: Syncope and black BM's History of Present Illness: 54M admitted through [facility] ER for evaluation of syncope. This occurred Sunday night and was followed by black diarrheal bowel movements. He had dark bowel movements again on sunday. Was sent to the ER. Noted to be anemic. He has not had melena since sunday and had a normal formed bowel movement today. Recent perioperative cardiac arrest 06/25 during hip surgery for which he underwent placement of a drug eluting cardiac stent. Has been maintained on ASA and Plavix. These were held on sunday. He is uncertain if he was started on GI prophylaxis after DAPT initiated. He denies OTC NSAID use. In the ER he was given ASA 325mg x 1 and started on IV Heparin given elevated troponins. He was seen by his still photographer Dr. Alatorre who discussed the case with me today. He felt the troponin elevations were secondary to anemia with demand ischemia as opposed to NSTEMI. His bridge mechanic is Dr. Marcus Can. He performed colonoscopy in 2017 that revealed diverticulosis and significant amount of stool in the cecum. A 10 year follow-up exam was advised. There is no family history of colorectal cancer or other GI malignancy. - History Source History Provided By: Patient, Medical Record Limitations to Obtaining History: No Limitations - Past Medical History Cardio/Vascular: Yes: HTN, Hyperlipdemia Gastrointestinal: Yes: Diverticulosis Musculoskeletal: Yes: Osteoarthritis (of the right hip) - Past Surgical History Additional Surgical History: Attempted TRHR - Alcohol/Substance Use Hx Alcohol Use: Yes (drank heavily 30 years ago) History of Substance Use: reports: Cocaine (used in 20's) - Smoking History Have you smoked in the past 12 months: No - Social History Usual Living Arrangement: With Spouse ADL: Independent Occupation: Works for [employer] in [place] [address] of : [facility] History of Recent Travel: No Home Medications - Allergies Allergies/Adverse Reactions: Allergies Allergy/AdvReac Type Severity Reaction Status Date / Time No Known Allergies Allergy Verified 02/12/19 15:38 - Home Medications Home Medications: Ambulatory Orders Amlodipine Besylate 10 mg PO DAILY 10/30/16 Gemfibrozil [Lopid -] 600 mg PO BID 10/30/16 Allopurinol [Zyloprim -] 100 mg PO DAILY 06/27/18 Metoprolol Tartrate 25 mg PO BID 06/27/18 Amlodipine Besylate [Norvasc -] 10 mg PO DAILY tablet 07/05/18 Aspirin [ASA -] 325 mg PO DAILY@0800 tablet 07/05/18 Gemfibrozil [Lopid -] 600 mg PO BIDAC tablet 07/05/18 Heparin - 5,000 unit SQ TID vial 07/05/18 Magnesium Hydrox 2400MG/30Ml [Milk of Magnesia -] 30 ml PO PRN PRN cup Magnesium Hydrox 2400MG/30Ml [Milk of Magnesia -] 30 ml PO PRN PRN cup Metoprolol Tartrate [Lopressor -] 25 mg PO BID tablet 07/05/18 Multivitamins [Multivit ([facility] Formulary)] 1 tab PO DAILY tab 07/05/18 Sennosides/Docusate Sodium [Pericolace -] 2 tablet PO BID tablet 07/05/18 Sennosides/Docusate Sodium [Pericolace -] 2 tablet PO BID tablet 07/05/18 oxyCODONE HCL [Roxicodone -] 5 mg PO Q6H PRN #30 tablet MDD 4 07/05/18 Family Medical History Other Family History: Mother: : 68: ID. Father: : 42: DVY. 1 sister: after ? chiropractic procedure. 1 sister: Alive: healthy. 1 daughter: healthy. No family history of colorectal cancer or other GI malignancy Review of Systems - Review of Systems Constitutional: denies: Fever Cardiovascular: denies: Chest Pain Respiratory: denies: SOB Gastrointestinal: reports: Melena. denies: Abdominal Pain, Nausea, Rectal Bleeding, Vomiting, Vomiting Blood Physical Exam-GI Vital Signs: Vital Signs Temperature 98.9 F 02/13/19 14:00 Pulse Rate 73 02/13/19 14:00 Respiratory Rate 20 02/13/19 14:00 Blood Pressure 116/57 L 02/13/19 14:00 O2 Sat by Pulse Oximetry (%) 96 02/13/19 06:22 Constitutional: Yes: Calm Eyes: No: Sclera Icterus Cardiovascular: Yes: Regular Rate and Rhythm Respiratory: Yes: CTA Bilaterally Gastrointestinal Inspection: Yes: Hernia (reducible non-tender ventral hernia cephalad to umbilicus). No: Distention ...Auscultate: Yes: Normoactive Bowel Sounds ...Palpate: No: Hepatomegaly, Soft, Splenomegaly, Tenderness ...Percussion: No: Tympanitic ...Rectal Exam: Yes: Other (No external lesions, no masses, mccormick liquid stool, no blood/melena) Edema: No (No LE edema:stasis change) Neurological: Yes: Alert Labs: CBC, BMP 02/13/19 12:42 02/13/19 05:43 INR, PTT INR 1.08 (0.83-1.09) 02/13/19 00:55 Problem List - Problems (1) Melena Assessment/Plan: No overt bleeding now for 48 hours. Stable hemodynamics. Suspect bleeding from PUD in setting of DAPT Advise: Clear liquids for now Continue Protonix drip @ 8mg/hr Discussed upper endoscopy to evaluate for alternate bleeding sources / help look for potentially high risk lesions / stigmata for rebleeding and exclude h. pylori. Discussed potential risks of the procedure like but not limited to bleeding, perforation requiring surgery to repair, infection, sedation medication effects all of which could be potentially life threatening. He has agreed to the procedure. NPO after midnight Given h/o CA, keep Hgb 8-9 Cardiology following. DAPT held for now and heparin drip discontinued Monitor for overt bleeding. If overt bleeding or change in hemodynamics, transfer to ICU setting. Code(s): K92.1 - MELENA
--- NOTE | 2019-02-13 16:04 | ECHO ---
Name: SUSY GEORGE Exam:Adult Echocardiogram Study Date: 02/13/2019 02:27 PM Age: 54 yrs Reason For Study: demand ischemia Height: 74 in Weight: 308 lb BSA: 2.6 m2 MMode/2D Measurements & Calculations IVSd: 1.2 cm Ao root diam: 3.2 cm LVIDd: 3.0 cm LA dimension: 4.6 cm LVIDs: 2.0 cm ACS: 2.1 cm LVPWd: 2.0 cm EDV(Teich): 34.8 ml LVOT diam: 2.0 cm ESV(Teich): 12.9 ml Doppler Measurements & Calculations MV E max dwain: 82.4 cm/sec Ao V2 max: 171.1 cm/sec MV A max dwain: 89.3 cm/sec Ao max P.7 mmHg MV E/A: 0.92 Ao V2 mean: 121.2 cm/sec MV dec time: 0.14 sec Ao mean P.7 mmHg Ao V2 VTI: 35.4 cm MARK(V,D): 1.7 cm2 LV V1 max P.6 mmHg MR max dwain: 152.9 cm/sec LV V1 max: 94.3 cm/sec MR max P.4 mmHg TR max dwain: 245.1 cm/sec Med Peak E' Dwain: 10.0 cm/sec TR max P.2 mmHg Med E/e': 8.2 RVSP(TR): 34.2 mmHg Lat Peak E' Dwain: 6.0 cm/sec Lat E/e': 13.8 RAP systole: 10.0 mmHg Procedure A complete two-dimensional transthoracic echocardiogram was performed (2D, M-mode, Doppler and color flow Doppler). Left Ventricle The left ventricular size, thickness and function are normal. The left ventricular ejection fraction is normal. Ejection Fraction = 60-65%. No regional wall motion abnormalities noted. Right Ventricle The right ventricle is normal in size and function. Atria Normal left and right atrial size and function. Mitral Valve There is no mitral regurgitation noted. Tricuspid Valve There is trace tricuspid regurgitation. Right ventricular systolic pressure is elevated at 30-40mmHg. Aortic Valve No hemodynamically significant valvular aortic stenosis. No aortic regurgitation is present. Pulmonic Valve The pulmonic valve is not well visualized. Great Vessels The aortic root is normal size. Pericardium/Pleura There is no pericardial effusion. Interpretation Summary The left ventricular size, thickness and function are normal The right ventricle is normal in size and function. There is trace tricuspid regurgitation. Right ventricular systolic pressure is elevated at 30-40mmHg. MD Kranthi Paez 02/13/2019 04:03 PM
--- NOTE | 2019-02-13 19:40 | PN ---
Progress Note, Physician Chief Complaint: The patient had an uneventful night, with no bowel movements. He has no chest or abdominal pain, but is complaining of right hip pain. - Current Medication List Current Medications: Active Medications Acetaminophen (Tylenol -) 325 mg PO Q6H PRN PRN Reason: PAIN 5-10 Last Admin: 02/13/19 11:37 Dose: 325 mg Atorvastatin Calcium (Lipitor -) 40 mg PO DAILY [facility] Last Admin: 02/13/19 11:35 Dose: Not Given Sodium Chloride (Normal Saline -) 1,000 mls @ 100 mls/hr IV ASDIR [facility] Last Admin: 02/13/19 11:35 Dose: 100 mls/hr Pantoprazole Sodium 80 mg/ (Sodium Chloride) 100 mls @ 10 mls/hr IVPB Q10H [facility] Last Admin: 02/13/19 16:14 Dose: 10 mls/hr Metoprolol Tartrate (Lopressor -) 25 mg PO BID [facility] Last Admin: 02/13/19 11:35 Dose: 25 mg Oxycodone HCl (Roxicodone -) 10 mg PO Q6H PRN PRN Reason: PAIN 5-10 Last Admin: 02/13/19 11:36 Dose: 10 mg - Objective Vital Signs: Vital Signs Temperature 97.8 F 02/13/19 17:00 Pulse Rate 71 02/13/19 17:00 Respiratory Rate 20 02/13/19 17:00 Blood Pressure 103/53 L 02/13/19 17:00 O2 Sat by Pulse Oximetry (%) 100 02/13/19 10:00 Constitutional: Yes: No Distress, Calm Eyes: Yes: Conjunctiva Clear, EOM Intact HENT: Yes: Atraumatic, Normocephalic Neck: Yes: Supple, Trachea Midline Cardiovascular: Yes: Regular Rate and Rhythm, S1, S2 Respiratory: Yes: Regular, CTA Bilaterally. No: Orthopnea, SOB, SOB on Exertion Gastrointestinal: Yes: Normal Bowel Sounds, Soft, Abdomen, Obese. No: Rectal Bleeding, Splenomegaly, Tenderness, Epigastrium Breast(s): Yes: WNL Musculoskeletal: Yes: Joint Stiffness, Other (right hip pain) Labs: CBC, BMP 02/13/19 12:42 02/13/19 05:43 INR, PTT INR 1.08 (0.83-1.09) 02/13/19 00:55 Problem List - Problems (1) Syncope Assessment/Plan: most likely due to orthostatic hypotension and dehydration Iv fluids D51/2 NS at 75 cc/hr repeat labs in am Code(s): R55 - SYNCOPE AND COLLAPSE (2) Intestinal bleeding Assessment/Plan: Gastroenterology consult appreciated serial CBC, patient's baseline h/h are 16/50 ( 06/2018), Plavix and ASA are on hold for now Protonix 40 mg iv drip serial Hemocult heparin drip was stopped endoscopy scheduled in am Code(s): K92.2 - GASTROINTESTINAL HEMORRHAGE, UNSPECIFIED (3) Demand ischemia Assessment/Plan: serial cardiac enzymes, EKG heparin started by ER is now discontinued start Metoprolol at a lower dose 25 g bid Code(s): I24.8 - OTHER FORMS OF ACUTE ISCHEMIC HEART DISEASE (4) Leukocytosis Assessment/Plan: improving most likely reactive leukocytosis repeat CBC in am Code(s): D72.829 - ELEVATED WHITE BLOOD CELL COUNT, UNSPECIFIED (5) Azotemia Assessment/Plan: continue iv fluids repeat CMP and MAgnesium in am Code(s): R79.89 - OTHER SPECIFIED ABNORMAL FINDINGS OF BLOOD CHEMISTRY (6) Azotemia Code(s): R79.89 - OTHER SPECIFIED ABNORMAL FINDINGS OF BLOOD CHEMISTRY (7) Tachycardia Assessment/Plan: secondary to anemia and dehydration continue iv hydration type and cross match serial repeat CBC serial stool for occult blood Code(s): R00.0 - TACHYCARDIA, UNSPECIFIED (8) Osteoarthritis of right hip Assessment/Plan: Percocet 10/325 mg every 6 hours as needed Code(s): M16.11 - UNILATERAL PRIMARY OSTEOARTHRITIS, RIGHT HIP
[2019-02-14] MEDS: PANTOPRAZOLE SODIUM 80 MG in SODIUM CHLORIDE 100 ML IVPB SCH ×2 (03:10→15:00)
[2019-02-14] MEDS: SODIUM CHLORIDE 1,000 ML IV SCH ×2 (06:36→09:49)
[2019-02-14 06:43] LABS: BASO % 0.8 % (0-2.0); EOS % 4.4 % (0-4.5); HEMATOCRIT 25.5 % (35.4-49); HEMOGLOBIN 8.8 GM/dL (11.7-16.9); LYMPH % 30.9 % (8-40); MCH 34.7 pg (25.7-33.7); MCHC 34.3 g/dl (32.0-35.9); MEAN CELL VOLUME 101.1 fl (80-96); MEAN PLT VOLUME 8.5 fl (7.5-11.1); MONO % 10.9 % (3.8-10.2); PLATELET COUNT 270 K/MM3 (134-434); RBC 2.52 M/mm3 (4.00-5.60); RDW 14.5 % (11.9-15.9)
[2019-02-14 07:18] LABS: ALBUMIN 3.5 g/dl (3.4-5.0); BILIRUBIN,TOTAL 0.8 mg/dL (0.2-1); BLOOD UREA NITROGEN 34.6 mg/dL (7-18); CALCIUM 9.1 mg/dL (8.5-10.1); CREATININE 1.1 mg/dL (0.55-1.3); POTASSIUM 4.6 mmol/L (3.5-5.1); TOT PROT 6.9 g/dl (6.4-8.2)
[2019-02-14] MEDS: METOPROLOL TARTRATE 25 MG TABLET (FP) PO SCH ×2 (09:49→22:05)
[2019-02-14] MEDS: ATORVASTATIN CA 40 MG TABLET (FP) PO SCH (09:49)
[2019-02-14] MEDS ORDERED: TETRACAINE/BENZOCAINE/BUTAMBEN 20 GM SPR TP ONE (13:17)
[2019-02-14] MEDS ORDERED: MIDAZOLAM HCL 2 MG/2 ML SINGLE DOSE VIAL ONE (13:21)
--- NOTE | 2019-02-14 13:57 | EKG ---
Test Reason : Blood Pressure : / mmHG Vent. Rate : 074 BPM Atrial Rate : 074 BPM P-R Int : 184 ms QRS Dur : 094 ms QT Int : 378 ms P-R-T Axes : 021 030 039 degrees QTc Int : 419 ms NORMAL SINUS RHYTHM EARLY REPOLARIZATION Confirmed by CLIFF KNOWLES MD ([id number]) on 02/14/2019 1:57:20 PM Referred By: Confirmed By:CLIFF KNOWLES MD
--- NOTE | 2019-02-14 13:59 | PN ---
Progress Note (short form) - Note Progress Note: EGD complete. report left in procedural section of physical chart and will be scanned into [facility] Problem List - Problems (1) Ronit Code(s): K92.1 - RONIT
--- NOTE | 2019-02-14 20:43 | PN ---
Progress Note, Physician Chief Complaint: Pt A&Ox3; no chest pain, dyspnea, palpitations, or dizziness. History of Present Illness: Mr. Gonzalez is a 54 yo white male with morbid obesity, HTN and dyslipidemia, HI s/ p PCI to proximal LAD (07/07/2018 at [facility]-- on ASA and plavix , presenting with syncopal episode 3 days ago. At that time, malaise, lack of energy and appetite, and had been having very watery/loose "dark colored" diarrhea x 2-3 episodes per day for several days. In June,, at [place], admitted for right total hip replacement, he had a cardiac arrest in the OR in June 2018. After resuscitation the patient was found to have an NSTEMI; he was transferred to [facility], when a proximal LAD drug-eluting stent was placed 07/07/2018. Pt weighed >400 lbs last [place]; he has since followed a lower-carloie diet, and now weighs 295 lbs. - Current Medication List Current Medications: Active Medications Acetaminophen (Tylenol -) 325 mg PO Q6H PRN PRN Reason: PAIN 5-10 Last Admin: 02/13/19 11:37 Dose: 325 mg Aspirin (Asa -) 81 mg PO DAILY [facility] Atorvastatin Calcium (Lipitor -) 40 mg PO DAILY [facility] Last Admin: 02/14/19 09:49 Dose: 40 mg Clopidogrel Bisulfate (Plavix -) 75 mg PO DAILY [facility] Sodium Chloride (Normal Saline -) 1,000 mls @ 100 mls/hr IV ASDIR [facility] Last Admin: 02/14/19 09:49 Dose: 100 mls/hr Metoprolol Tartrate (Lopressor -) 25 mg PO BID [facility] Last Admin: 02/14/19 09:49 Dose: 25 mg Oxycodone HCl (Roxicodone -) 10 mg PO Q6H PRN PRN Reason: PAIN 5-10 Last Admin: 02/13/19 21:05 Dose: 10 mg Pantoprazole Sodium (Protonix -) 40 mg PO BID [facility] - Objective Vital Signs: Vital Signs Temperature 98.2 F 02/14/19 18:00 Pulse Rate 83 02/14/19 18:00 Respiratory Rate 18 02/14/19 18:00 Blood Pressure 123/59 L 02/14/19 18:00 O2 Sat by Pulse Oximetry (%) 99 02/14/19 14:24 Constitutional: Yes: Calm, Obese Eyes: Yes: WNL HENT: Yes: WNL Neck: Yes: WNL Cardiovascular: Yes: S1, S2, S4 Respiratory: Yes: WNL Gastrointestinal: Yes: Soft, Abdomen, Obese ...Rectal Exam: Yes: Deferred Genitourinary: Yes: Anuria Breast(s): Yes: WNL Musculoskeletal: Yes: Joint Stiffness Extremities: Yes: Cool Edema: No Peripheral Pulses WNL: Yes Integumentary: Yes: WNL Neurological: Yes: WNL ...Motor Strength: WNL Psychiatric: Yes: WNL Labs: CBC, BMP 02/14/19 06:26 02/14/19 06:26 INR, PTT INR 1.08 (0.83-1.09) 02/13/19 00:55 Abnormal Lab Results 02/14/19 02/14/19 02/14/19 06:26 06:26 06:26 RBC 2.52 L Hgb 8.8 L Hct 25.5 L MCV 101.1 H MCH 34.7 H Monocytes % 10.9 H PTT (Actin FS) 24.8 L Chloride 110 H Anion Gap 5 L BUN 34.6 H Troponin I 0.37 H - ....Imaging Chest X-ray: Image Reviewed EKG: Image Reviewed Problem List - Problems (1) Acute GI bleeding Assessment/Plan: Decrease in HB, with + stool quaic. Dedhydration (from diarrhea; pt denies being on diuretics); Syncopal episode may be related to the above. TNI (midly elevated since HI 06/2018), 1.2 on admission, now 0.8; CK 194, with low MB relative index; demand stress from syncope, dehydration, anemia.. Plan: Discontinue IV heparin. Reinstitute ASA and clopidogrel (proximal LAD drug-eluting stent ) as soon as posible (await clearance from GI). F/u Hb after hydration. Code(s): K92.2 - GASTROINTESTINAL HEMORRHAGE, UNSPECIFIED (2) History of HI (myocardial infarction) Assessment/Plan: COntinue metoprolol Continue ASA and clopidogrel once cleared to do so by GI. Code(s): I25.2 - OLD MYOCARDIAL INFARCTION (3) H/O heart artery stent Assessment/Plan: NSTEMI-->s/p proximal LAD stent 07/07/2018 Code(s): Z95.5 - PRESENCE OF CORONARY ANGIOPLASTY IMPLANT AND GRAFT (4) Diastolic CHF Code(s): I50.30 - UNSPECIFIED DIASTOLIC (CONGESTIVE) HEART FAILURE (5) Syncope Assessment/Plan: see under "Acute GI bleeding" Dehydration, GI bleed. Plan: Rehydrate. F/u GI, hematology. Orhostatic vital signs. Is and Os. Code(s): R55 - SYNCOPE AND COLLAPSE (6) HTN (hypertension) Code(s): I10 - ESSENTIAL (PRIMARY) HYPERTENSION (7) Hyperlipidemia Code(s): E78.5 - HYPERLIPIDEMIA, UNSPECIFIED (8) Obesity Code(s): E66.9 - OBESITY, UNSPECIFIED Qualifiers: Body mass index: BMI 40.0-44.9
--- NOTE | 2019-02-14 21:05 | PN ---
Progress Note, Physician Chief Complaint: Pt A&Ox3; asymptomatic. History of Present Illness: Mr. Gonzalez is a 54 yo white male with morbid obesity, HTN and dyslipidemia, [place] s/ p PCI to proximal LAD (07/07/2018 at [facility]-- on ASA and plavix , presenting with syncopal episode 3 days ago. At that time, malaise, lack of energy and appetite, and had been having very watery/loose "dark colored" diarrhea x 2-3 episodes per day for several days. In June,, at [place], admitted for right total hip replacement, he had a cardiac arrest in the OR in June 2018. After resuscitation the patient was found to have an NSTEMI; he was transferred to [facility], when a proximal LAD drug-eluting stent was placed 07/07/2018. Pt weighed >400 lbs last ; he has since followed a lower-carloie diet, and now weighs 295 lbs. 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 - Current Medication List Current Medications: Active Medications Acetaminophen (Tylenol -) 325 mg PO Q6H PRN PRN Reason: PAIN 5-10 Last Admin: 02/13/19 11:37 Dose: 325 mg Aspirin (Asa -) 81 mg PO DAILY [facility] Atorvastatin Calcium (Lipitor -) 40 mg PO DAILY [facility] Last Admin: 02/14/19 09:49 Dose: 40 mg Clopidogrel Bisulfate (Plavix -) 75 mg PO DAILY [facility] Sodium Chloride (Normal Saline -) 1,000 mls @ 100 mls/hr IV ASDIR [facility] Last Admin: 02/14/19 09:49 Dose: 100 mls/hr Metoprolol Tartrate (Lopressor -) 25 mg PO BID [facility] Last Admin: 02/14/19 09:49 Dose: 25 mg Oxycodone HCl (Roxicodone -) 10 mg PO Q6H PRN PRN Reason: PAIN 5-10 Last Admin: 02/13/19 21:05 Dose: 10 mg Pantoprazole Sodium (Protonix -) 40 mg PO BID [facility] - Objective Vital Signs: Vital Signs Temperature 98.2 F 02/14/19 18:00 Pulse Rate 83 02/14/19 18:00 Respiratory Rate 18 02/14/19 18:00 Blood Pressure 123/59 L 02/14/19 18:00 O2 Sat by Pulse Oximetry (%) 99 02/14/19 14:24 Constitutional: Yes: No Distress, Obese Eyes: Yes: WNL HENT: Yes: WNL Neck: Yes: WNL Cardiovascular: Yes: WNL Respiratory: Yes: WNL Gastrointestinal: Yes: Abdomen, Obese ...Rectal Exam: Yes: Deferred Genitourinary: No: Anuria Breast(s): Yes: WNL Musculoskeletal: Yes: Joint Stiffness Extremities: Yes: WNL Edema: No Peripheral Pulses WNL: Yes Integumentary: Yes: WNL Neurological: Yes: WNL Psychiatric: Yes: WNL Labs: CBC, BMP 02/14/19 06:26 02/14/19 06:26 INR, PTT INR 1.08 (0.83-1.09) 02/13/19 00:55 - ....Imaging Chest X-ray: Image Reviewed EKG: Image Reviewed Problem List - Problems (1) Acute GI bleeding Assessment/Plan: GI consult noted and appreciated. Discussed GI endoscopy findings with Dr. Sr. Biopsies were taken from lesions. Will be able to restart both ASA and clopidogrel beginning tomorrow. Code(s): K92.2 - GASTROINTESTINAL HEMORRHAGE, UNSPECIFIED (2) History of RI (myocardial infarction) Assessment/Plan: Continue metoprolol. Restart ASA and clopidogrel (drug-eluting stent of proximal LAD placed 2018). ECHO: normal LVEF. F/u lipid panel (on atorvastatin). Discussed starting cardiac rehabilitation as outpatient (at [facility]). Code(s): I25.2 - OLD MYOCARDIAL INFARCTION (3) H/O heart artery stent Assessment/Plan: NSTEMI-->s/p proximal LAD stent 07/07/[address] Sr (GI), will restart ASA and clopidogrel in am. Code(s): Z95.5 - PRESENCE OF CORONARY ANGIOPLASTY IMPLANT AND GRAFT (4) Diastolic CHF Code(s): I50.30 - UNSPECIFIED DIASTOLIC (CONGESTIVE) HEART FAILURE (5) Syncope Assessment/Plan: see under "Acute GI bleeding" Dehydration, GI bleed. Plan: Rehydrate. F/u GI, hematology. Orhostatic vital signs. Is and Os. Code(s): R55 - SYNCOPE AND COLLAPSE (6) HTN (hypertension) Code(s): I10 - ESSENTIAL (PRIMARY) HYPERTENSION (7) Hyperlipidemia Assessment/Plan: Start atorvastatin; aggressive LDL lowering (hx NSTEMI, proximal LAD stent). Code(s): E78.5 - HYPERLIPIDEMIA, UNSPECIFIED (8) Obesity Assessment/Plan: Through dieting, pt, who weighed over 400 lbs last [place], is now 295 lbs. Code(s): E66.9 - OBESITY, UNSPECIFIED Qualifiers: Body mass index: BMI 40.0-44.9 (9) Renal insufficiency Assessment/Plan: Improving with hydration. Code(s): N28.9 - DISORDER OF KIDNEY AND URETER, UNSPECIFIED (10) Elevated troponin level Assessment/Plan: TNI this admission 1.2-->0.37; normal CK and low CKMB relative index. Demand ischemia contributors include his anemia, dehydration, tachycardia, pain , renal dysfunction. ECHO: normal LVEF. Onec anemia workup is completed and anemia/syncope treated, will plan on cardiac rehabilitation and possible stress test as outpatient. Code(s): R79.89 - OTHER SPECIFIED ABNORMAL FINDINGS OF BLOOD CHEMISTRY
[2019-02-14] MEDS: PANTOPRAZOLE 40 MG TABLET (FP) PO SCH (22:05)
[2019-02-14] MEDS: oxyCODONE HCL 5 MG TABLET PO PRN (22:05)
--- NOTE | 2019-02-14 22:32 | PN ---
Progress Note, Physician Chief Complaint: The patient had endoscopy and an uneventful night, with no bowel movements. He has no chest or abdominal pain, but is complaining of right hip pain. Clonoscopy identified 3 u;crs - Current Medication List Current Medications: Active Medications Acetaminophen (Tylenol -) 325 mg PO Q6H PRN PRN Reason: PAIN 5-10 Last Admin: 02/13/19 11:37 Dose: 325 mg Aspirin (Asa -) 81 mg PO DAILY [facility] Atorvastatin Calcium (Lipitor -) 40 mg PO DAILY [facility] Last Admin: 02/14/19 09:49 Dose: 40 mg Clopidogrel Bisulfate (Plavix -) 75 mg PO DAILY [facility] Sodium Chloride (Normal Saline -) 1,000 mls @ 100 mls/hr IV ASDIR [facility] Last Admin: 02/14/19 09:49 Dose: 100 mls/hr Metoprolol Tartrate (Lopressor -) 25 mg PO BID [facility] Last Admin: 02/14/19 22:05 Dose: 25 mg Oxycodone HCl (Roxicodone -) 10 mg PO Q6H PRN PRN Reason: PAIN 5-10 Last Admin: 02/14/19 22:05 Dose: 10 mg Pantoprazole Sodium (Protonix -) 40 mg PO BID [facility] Last Admin: 02/14/19 22:05 Dose: 40 mg - Objective Vital Signs: Vital Signs Temperature 98.2 F 02/14/19 18:00 Pulse Rate 83 02/14/19 18:00 Respiratory Rate 18 02/14/19 18:00 Blood Pressure 123/59 L 02/14/19 18:00 O2 Sat by Pulse Oximetry (%) 99 02/14/19 14:24 Labs: CBC, BMP 02/14/19 06:26 02/14/19 06:26 INR, PTT INR 1.08 (0.83-1.09) 02/13/19 00:55 Problem List - Problems (1) Syncope Assessment/Plan: most likely due to orthostatic hypotension and dehydration Iv fluids D51/2 NS at 75 cc/hr repeat labs in am Code(s): R55 - SYNCOPE AND COLLAPSE (2) Intestinal bleeding Assessment/Plan: Gastroenterology consult requested serial CBC, patient's baseline h/h are 16/50 ( 06/2018), Plavix and ASA are on hold for now Protonix 40 mg iv drip serial Hemocult heparin drip was started by ER , will not change since patient also had elevated cardiac enzymes and there is no strong evidence for acute bleeding as of now Code(s): K92.2 - GASTROINTESTINAL HEMORRHAGE, UNSPECIFIED (3) Demand ischemia Assessment/Plan: serial cardiac enzymes, EKG heparin started by ER start Metoprolol at a lower dose 25 g bid Code(s): I24.8 - OTHER FORMS OF ACUTE ISCHEMIC HEART DISEASE (4) Leukocytosis Assessment/Plan: most likely reactive leukocytosis repeat CBC in am Code(s): D72.829 - ELEVATED WHITE BLOOD CELL COUNT, UNSPECIFIED (5) Azotemia Code(s): R79.89 - OTHER SPECIFIED ABNORMAL FINDINGS OF BLOOD CHEMISTRY (6) Azotemia Assessment/Plan: related to dehydration and possibly to bleeding continue IV Hydration while monitoring H/H hold Lisinopril for now Code(s): R79.89 - OTHER SPECIFIED ABNORMAL FINDINGS OF BLOOD CHEMISTRY (7) Tachycardia Assessment/Plan: iv hydration type and cross match serial repeat CBC serial stool for occult blood Code(s): R00.0 - TACHYCARDIA, UNSPECIFIED
[2019-02-15 02:29] VITALS: PULSE 82
--- NOTE | 2019-02-15 06:32 | DS ---
Physical Examination Vital Signs: Vital Signs Temperature 98.4 F 02/15/19 02:28 Pulse Rate 82 02/15/19 02:28 Respiratory Rate 18 02/15/19 02:28 Blood Pressure 126/72 02/15/19 02:28 O2 Sat by Pulse Oximetry (%) 98 02/14/19 21:00 Constitutional: Yes: No Distress, Calm Eyes: Yes: Conjunctiva Clear, EOM Intact HENT: Yes: Atraumatic, Normocephalic Neck: Yes: Supple, Trachea Midline Cardiovascular: Yes: Regular Rate and Rhythm, S1, S2 Respiratory: Yes: Regular, CTA Bilaterally Gastrointestinal: Yes: Normal Bowel Sounds, Soft, Abdomen, Obese. No: Hepatomegaly, Splenomegaly Renal/: Yes: WNL Musculoskeletal: Yes: Other (right hip pain) Extremities: No: Calf Tenderness Edema: No Peripheral Pulses WNL: Yes Neurological: Yes: Alert, Oriented Psychiatric: Yes: Alert, Oriented Labs: CBC, BMP 02/14/19 06:26 02/14/19 06:26 Discharge Summary Problems reviewed: Yes Reason For Visit: NON ST ELEVATION MYOCARDIAL INFARCTION Current Active Problems Acute GI bleeding (Acute) Acute renal failure (Acute) Azotemia (Acute) Azotemia (Acute) Demand ischemia (Acute) Diastolic CHF (Acute) Elevated troponin level (Acute) H/O heart artery stent (Acute) History of AR (myocardial infarction) (Acute) Intestinal bleeding (Acute) Melena (Acute) NSTEMI (non-ST elevated myocardial infarction) (Acute) Osteoarthritis of right hip (Acute) Renal insufficiency (Acute) Syncope (Acute) Tachycardia (Acute) Hospital Course: 54 yo male admitted for syncope and Gi bleed associated with demand ischemia. PAtient ruled out AMI, and had endoscopy which diagnosed 3 duodenal non bleeding ulcers. He will be discharged home with instructions to follow up with [facility] in 1 month, and follow up with me in 1 week. Diet instructions: 3 meals daily Condition: Stable - Instructions Referrals: Rachael Mcconnell MD [Primary Care Provider] - - Home Medications Comprehensive Discharge Medication List: Ambulatory Orders Amlodipine Besylate 10 mg PO DAILY 10/30/16 Gemfibrozil [Lopid -] 600 mg PO BID 10/30/16 Allopurinol [Zyloprim -] 100 mg PO DAILY 06/27/18 Metoprolol Tartrate 25 mg PO BID 06/27/18 Amlodipine Besylate [Norvasc -] 10 mg PO DAILY tablet 07/05/18 Aspirin [ASA -] 325 mg PO DAILY@0800 tablet 07/05/18 Gemfibrozil [Lopid -] 600 mg PO BIDAC tablet 07/05/18 Heparin - 5,000 unit SQ TID vial 07/05/18 Magnesium Hydrox 2400MG/30Ml [Milk of Magnesia -] 30 ml PO PRN PRN cup Magnesium Hydrox 2400MG/30Ml [Milk of Magnesia -] 30 ml PO PRN PRN cup Metoprolol Tartrate [Lopressor -] 25 mg PO BID tablet 07/05/18 Multivitamins [Multivit ([facility] Formulary)] 1 tab PO DAILY tab 07/05/18 Sennosides/Docusate Sodium [Pericolace -] 2 tablet PO BID tablet 07/05/18 Sennosides/Docusate Sodium [Pericolace -] 2 tablet PO BID tablet 07/05/18 oxyCODONE HCL [Roxicodone -] 5 mg PO Q6H PRN #30 tablet MDD 4 07/05/18 Aspirin [ASA -] 81 mg PO DAILY tab.chew 02/15/19 Atorvastatin Ca [Lipitor] 40 mg PO DAILY tablet 02/15/19 Clopidogrel Bisulfate [Plavix -] 75 mg PO DAILY tablet 02/15/19 Metoprolol Tartrate [Lopressor -] 25 mg PO BID #60 tablet 02/15/19 Pantoprazole Sodium [Protonix -] 40 mg PO BID #60 tablet.ec 02/15/19
[2019-02-15 07:04] LABS: BASO % 0.8 % (0-2.0); EOS % 4.3 % (0-4.5); HEMATOCRIT 25.5 % (35.4-49); HEMOGLOBIN 8.7 GM/dL (11.7-16.9); LYMPH % 32.2 % (8-40); MCH 34.3 pg (25.7-33.7); MEAN CELL VOLUME 100.9 fl (80-96); MEAN PLT VOLUME 8.9 fl (7.5-11.1); MONO % 9.4 % (3.8-10.2); NEUT % 53.3 % (42.8-82.8); PLATELET COUNT 279 K/MM3 (134-434); RBC 2.53 M/mm3 (4.00-5.60); RDW 14.3 % (11.9-15.9); WHITE BLOOD COUNT 10.5 K/mm3 (4.0-10.0)
[2019-02-15 07:56] LABS: ALBUMIN 3.5 g/dl (3.4-5.0); BILIRUBIN,TOTAL 0.7 mg/dL (0.2-1); BLOOD UREA NITROGEN 18.6 mg/dL (7-18); CREATININE 0.9 mg/dL (0.55-1.3); POTASSIUM 4.2 mmol/L (3.5-5.1); TOT PROT 6.8 g/dl (6.4-8.2)
--- NOTE | 2019-02-15 09:02 | PN ---
Progress Note, Physician - Current Medication List Current Medications: Active Medications Acetaminophen (Tylenol -) 325 mg PO Q6H PRN PRN Reason: PAIN 5-10 Last Admin: 02/13/19 11:37 Dose: 325 mg Aspirin (Asa -) 81 mg PO DAILY [facility] Atorvastatin Calcium (Lipitor -) 40 mg PO DAILY [facility] Last Admin: 02/14/19 09:49 Dose: 40 mg Clopidogrel Bisulfate (Plavix -) 75 mg PO DAILY [facility] Sodium Chloride (Normal Saline -) 1,000 mls @ 100 mls/hr IV ASDIR [facility] Last Admin: 02/14/19 09:49 Dose: 100 mls/hr Metoprolol Tartrate (Lopressor -) 25 mg PO BID [facility] Last Admin: 02/14/19 22:05 Dose: 25 mg Oxycodone HCl (Roxicodone -) 10 mg PO Q6H PRN PRN Reason: PAIN 5-10 Last Admin: 02/14/19 22:05 Dose: 10 mg Pantoprazole Sodium (Protonix -) 40 mg PO BID [facility] Last Admin: 02/14/19 22:05 Dose: 40 mg - Objective Vital Signs: Vital Signs Temperature 98.4 F 02/15/19 02:28 Pulse Rate 82 02/15/19 02:28 Respiratory Rate 18 02/15/19 02:28 Blood Pressure 126/72 02/15/19 02:28 O2 Sat by Pulse Oximetry (%) 98 02/14/19 21:00 Eyes: Yes: WNL, Conjunctiva Clear, EOM Intact HENT: Yes: WNL, Atraumatic, Normocephalic Neck: Yes: WNL, Supple, Trachea Midline Cardiovascular: Yes: WNL, Regular Rate and Rhythm Respiratory: Yes: WNL, Regular, CTA Bilaterally Gastrointestinal: Yes: WNL, Normal Bowel Sounds Genitourinary: Yes: WNL Musculoskeletal: Yes: WNL Extremities: Yes: WNL Edema: No Integumentary: Yes: WNL Neurological: Yes: WNL, Alert, Oriented ...Motor Strength: WNL Psychiatric: Yes: WNL Labs: CBC, BMP 02/15/19 06:10 02/15/19 06:10 INR, PTT INR 1.08 (0.83-1.09) 02/13/19 00:55 Assessment/Plan - Problems (1) Acute GI bleeding Assessment/Plan: GI consult noted and appreciated. Discussed GI endoscopy findings with Dr. Sr. Biopsies were taken from lesions. Will be able to restart both ASA and clopidogrel beginning tomorrow. Code(s): K92.2 - GASTROINTESTINAL HEMORRHAGE, UNSPECIFIED (2) History of [place] (myocardial infarction) Assessment/Plan: Continue metoprolol. Restart ASA and clopidogrel (drug-eluting stent of proximal LAD placed 2018). ECHO: normal LVEF. F/u lipid panel (on atorvastatin). Discussed starting cardiac rehabilitation as outpatient (at [facility]). Code(s): I25.2 - OLD MYOCARDIAL INFARCTION (3) H/O heart artery stent Assessment/Plan: NSTEMI-->s/p proximal LAD stent 07/07/[address] Sr (GI), will restart ASA and clopidogrel in am. Code(s): Z95.5 - PRESENCE OF CORONARY ANGIOPLASTY IMPLANT AND GRAFT (4) Diastolic CHF Code(s): I50.30 - UNSPECIFIED DIASTOLIC (CONGESTIVE) HEART FAILURE (5) Syncope Assessment/Plan: see under "Acute GI bleeding" Dehydration, GI bleed. Plan: Rehydrate. F/u GI, hematology. Orhostatic vital signs. Is and Os. Code(s): R55 - SYNCOPE AND COLLAPSE (6) HTN (hypertension) Code(s): I10 - ESSENTIAL (PRIMARY) HYPERTENSION (7) Hyperlipidemia Assessment/Plan: Start atorvastatin; aggressive LDL lowering (hx NSTEMI, proximal LAD stent). Code(s): E78.5 - HYPERLIPIDEMIA, UNSPECIFIED (8) Obesity Assessment/Plan: Through dieting, pt, who weighed over 400 lbs last [place], is now 295 lbs. Code(s): E66.9 - OBESITY, UNSPECIFIED Qualifiers: Body mass index: BMI 40.0-44.9 (9) Renal insufficiency Assessment/Plan: Improving with hydration. Code(s): N28.9 - DISORDER OF KIDNEY AND URETER, UNSPECIFIED (10) Elevated troponin level Assessment/Plan: TNI this admission 1.2-->0.37; normal CK and low CKMB relative index. Demand ischemia contributors include his anemia, dehydration, tachycardia, pain , renal dysfunction. ECHO: normal LVEF. Onec anemia workup is completed and anemia/syncope treated, will plan on cardiac rehabilitation and possible stress test as outpatient. Code(s): R79.89 - OTHER SPECIFIED ABNORMAL FINDINGS OF BLOOD CHEMISTRY
[2019-02-15] MEDS: PANTOPRAZOLE 40 MG TABLET (FP) PO SCH (09:59)
[2019-02-15] MEDS: CLOPIDOGREL BISULFATE 75 MG TABLET (FP) PO SCH ×2 (09:59→11:29)
[2019-02-15] MEDS: METOPROLOL TARTRATE 25 MG TABLET (FP) PO SCH (09:59)
[2019-02-15] MEDS: oxyCODONE HCL 5 MG TABLET PO PRN (09:59)
[2019-02-15] MEDS: ATORVASTATIN CA 40 MG TABLET (FP) PO SCH (09:59)
[2019-02-15] MEDS: ASPIRIN 81 MG CHEWABLE TABLETS PO SCH ×2 (10:01→11:29)
[2019-02-15] MEDS: SODIUM CHLORIDE 1,000 ML IV SCH (11:29)
[2019-02-15 12:03] VITALS: BP 134/77; TEMP 98.6
--- NOTE | 2019-02-19 13:10 | PATH ---
Surgical Pathology Report Patient Name: SUSY GEORGE [facility]. Rec. #: [id number] /Age/Gender: 1965 (Age: 54) / M Account: [id number] Location: 4 W TELEMETRY U Taken: 02/14/2019 Received: 02/17/2019 Reported: 02/19/2019 Physicians: Eryn Cohen M.D. Specimen(s) Received A: STOMACH BODY B: ANTRAL ULCERS Clinical History Melena, GI bleed Postoperative diagnosis: Gastric ulcers Final Diagnosis A. STOMACH, ANGULARIS AND BODY, BIOPSY: GASTRIC BODY MUCOSA WITH MILD CHRONIC ACTIVE GASTRITIS. IMMUNOHISTOCHEMICAL STAIN FOR H. PYLORI IS NEGATIVE. B. STOMACH, ANTRAL, ULCERS, BIOPSY: GASTRIC ANTRAL MUCOSA WITH MILD CHRONIC GASTRITIS. IMMUNOHISTOCHEMICAL STAIN FOR H. PYLORI IS NEGATIVE. Electronically Signed Ebony Meyer M.D. Gross Description A. Received in formalin, labeled "angularis and body biopsy" are 3 mccormick, irregular portions of soft tissue ranging from 0.2-0.4 cm. in greatest dimension. The specimens are submitted in toto in one cassette. B. Received in formalin, labeled "antral ulcers biopsy" are 2 mccormick, irregular portions of soft tissue measuring 0.2 and 0.3 cm. in greatest dimension. The specimens are submitted in toto in one cassette. 02/17/2019 saudi02/17/2019
== END 2019-02-15 13:16 | disposition home or self-care (01) | DRG 378 ==
LOC: JER 15:29 → JERBED 17:21 → OBSVTOIN 02-13 05:10 → J4W 02-13 06:18
PROVIDERS: ADMIT Internal Medicine; ATTEND Internal Medicine
PROC: 0DB98ZX Excision of Duodenum, Via Natural or Artificial Opening Endoscopic, Diagnostic (ICD-10-PCS; principal; 2019-02-14 12:00)
DX: K92.2 Gastrointestinal hemorrhage, unspecified (principal); I24.8 Other forms of acute ischemic heart disease; I50.30 Unspecified diastolic (congestive) heart failure; R55 Syncope and collapse; I95.9 Hypotension, unspecified; E86.0 Dehydration; D72.829 Elevated white blood cell count, unspecified; R79.89 Other specified abnormal findings of blood chemistry; R00.0 Tachycardia, unspecified; I25.10 Atherosclerotic heart disease of native coronary artery without angina pectoris; Z98.61 Coronary angioplasty status; E78.5 Hyperlipidemia, unspecified; E66.01 Morbid (severe) obesity due to excess calories; Z68.37 Body mass index [BMI] 37.0-37.9, adult; I10 Essential (primary) hypertension; I11.0 Hypertensive heart disease with heart failure; I25.2 Old myocardial infarction; K26.9 Duodenal ulcer, unspecified as acute or chronic, without hemorrhage or perforation; M16.11 Unilateral primary osteoarthritis, right hip; K29.40 Chronic atrophic gastritis without bleeding
CPT/HCPCS: 36415; 71045-TC-FY; 80053; 80061; 81003; 82272; 82550; 82553; 82607; 82746; 83605; 83721; 83735; 83880; 84484; 85025; 85027; 85610; 85730; 86850; 86900; 86901; 87086; 88305-TC; 93005; 93010; 93306-TC; 99285-25; G0378; J1644; J7030

== ENCOUNTER 2019-10-14 06:48 | Inpatient (IN) | payer BC ==
[2019-10-14] MEDS ORDERED: TRANEXAMIC ACID 1000 MG/10 ML VIAL IVPUSH ONE (07:02)
[2019-10-14] MEDS ORDERED: CEFAZOLIN 3 GM in DEXTROSE 5%-WATER - 100 ML IVPB ONE (07:02)
[2019-10-14] MEDS ORDERED: CELECOXIB 200 MG CAPSULE ONE (07:37)
[2019-10-14] MEDS ORDERED: ceFAZolin SODIUM 1 GM VIAL ONE ×3 (07:38→16:46)
[2019-10-14 07:43] VITALS: BMI 36.1
[2019-10-14] MEDS ORDERED: VANCOMYCIN 1,000 MG VIAL (RESTRICTED TO ID ONLY) ONE (07:43)
--- NOTE | 2019-10-14 07:58 | HP ---
Satellite [facility] - Chief Complaint Chief Complaint: right hip pain - Past Medical History Allergies/Adverse Reactions: Allergies Allergy/AdvReac Type Severity Reaction Status Date / Time No Known Drug Allergies Allergy Verified 10/08/19 11:51 Cardiovascular: Yes: CHF (ciastolic), HTN, Hyperlipdemia Pulmonary: Yes: Other (intuna=bated) Gastrointestinal: Yes: GI Bleed Renal/: Yes: Renal Inusuff Heme/Onc: Yes: Anemia Musculoskeletal: Yes: Osteoarthritis (of the right hip) - Current Medications Current Medications: Home Medications Medication Instructions Recorded Allopurinol [Zyloprim -] 100 mg PO DAILY 06/27/18 Aspirin [ASA -] 81 mg PO DAILY tab.chew 02/15/19 Atorvastatin Ca [Lipitor] 80 mg PO DAILY 10/08/19 Lisinopril 20 mg PO DAILY 10/08/19 Oxycodone HCl/Acetaminophen 1 each PO TID 10/08/19 [Percocet 10-325 mg Tablet] Clopidogrel Bisulfate [Plavix] 75 mg PO DAILY 10/14/19 Metoprolol/Hydrochlorothiazide 1 each PO DAILY 10/14/19 [Metoprolol-Hctz 100-25 mg Tab] Satellite Physical Exam - Physical Examination Vital Signs: Vital Signs Period Temp Pulse Resp BP Sys/Lau Pulse Ox Last 24 Hr 98.8 F 67 18 143/92 General Appearance: Well Nourished, Well Developed, Alert & Oriented x3 ENT: Clear Lung: Normal air movement Extremities: Other (right hip- + ttp, decr rom, nvi, xrays show grade 4 hip djd) Neurological: Intact, Alert, Oriented Satellite Impression/Plan - Impression/Plan Impression: right hip djd Operative Procedure: right saba thr Date to be Performed: 10/14/19
[2019-10-14] MEDS ORDERED: ROPIVACAINE HCL 0.5% 30ML VIAL ONE (08:21)
[2019-10-14] MEDS ORDERED: MIDAZOLAM HCL 2 MG/2 ML SINGLE DOSE VIAL ONE (08:21)
[2019-10-14] MEDS ORDERED: CELECOXIB 200 MG CAPSULE PO ONE (09:30)
[2019-10-14] MEDS ORDERED: MAGNESIUM HYDROX 2400MG/30ML ORAL SUSPENSION 30 ML CUP PO PRN (09:32)
[2019-10-14] MEDS ORDERED: ONDANSETRON 4 MG/2 ML VIAL IVPUSH PRN (09:32)
[2019-10-14] MEDS ORDERED: MAG HYDROX/AL HYDROX/SIMETH 30 ML UNIT-DOSE CUP PO PRN (09:32)
[2019-10-14] MEDS ORDERED: PROPOFOL 20 ML ONE (09:40)
[2019-10-14] MEDS ORDERED: LACTATED RINGERS SOLUTION 1,000 ML IV SCH ×2 (09:45→12:21)
[2019-10-14] MEDS ORDERED: ASPIRIN 81 MG CHEWABLE TABLETS PO SCH (10:00)
[2019-10-14] MEDS ORDERED: ATORVASTATIN CA 40 MG TABLET (FP) PO SCH (10:00)
[2019-10-14] MEDS ORDERED: ALLOPURINOL 100 MG TABLET (FP) PO SCH (10:00)
[2019-10-14] MEDS ORDERED: ACETAMINOPHEN 1000 MG/100 ML VIAL (NON FORMULARY) IVPB ONE (10:07)
[2019-10-14] MEDS ORDERED: VANCOMYCIN 1,000 MG VIAL (RESTRICTED TO ID ONLY) IVPB ONE ×2 (10:14→10:28)
--- NOTE | 2019-10-14 10:55 | OP ---
Operative Note - Note: Operative Date: 10/14/19 (mike) Pre-Operative Diagnosis: right hip djd Operation: right saba thr Post-Operative Diagnosis: Same as Pre-op Surgeon: Bong Proctor Client Services Specialist: Demarcus Loomis Anesthesia: Spinal, Local Specimens Removed: femoral head Estimated Blood Loss (mls): 200
[2019-10-14] MEDS ORDERED: ACETAMINOPHEN INJECTION 100 ML IVPB ONE (12:03)
[2019-10-14] MEDS: METOPROLOL TARTRATE 50 MG TABLET (FP) PO SCH (12:15)
[2019-10-14] MEDS ORDERED: oxyCODONE HCL 5 MG TABLET PO PRN (16:11)
[2019-10-14] MEDS ORDERED: DEXTROSE 5%-WATER 100 ML IVPB ONE (16:47)
[2019-10-14] MEDS: oxyCODONE HCL 5 MG TABLET PO PRN ×2 (17:18→21:25)
[2019-10-14] MEDS: CEFAZOLIN 3 GM in DEXTROSE 5%-WATER 100 ML IVPB SCH (17:22)
--- NOTE | 2019-10-14 19:05 | SPEC ---
DATE OF OPERATION: 10/14/2019 PREOPERATIVE DIAGNOSIS: Degenerative joint disease right hip. POSTOPERATIVE DIAGNOSIS: Degenerative joint disease right hip. PROCEDURE PERFORMED: Right total hip replacement with robotic-assisted navigation (MAKOplasty). SURGICAL ATTENDING: Bong Proctor MD. MEDICAL TERRITORY MANAGER: ELIZBAETH Solorzano. ANESTHESIA: Regional and spinal. CLOSURE: A Trident 2, 58-mm Press-Fit acetabulum, number 8 Accolade 2 Press-Fit acetabulum, 36-mm ceramic head. Number 1 Vicryl for fascia, 0 and 2-0 subcutaneous, 3-0 V-Loc for skin, 4-0 undyed Vicryl for pin sites. ESTIMATED BLOOD LOSS: Negligible. COMPLICATIONS: None. CONDITION: To the recovery room in stable condition. DESCRIPTION OF PROCEDURE: The patient was taken to the operating room on October 14, 2019. General and regional anesthesia was administered by the anesthesiologist. IV Kefzol and TXA were administered prophylactically prior to the case. The patient was placed in the lateral decubitus position will all prominences well-padded. The right hip area was prepped and draped in the usual sterile fashion. Using 3 small stab incisions over the iliac crest, 3 threaded pins were drilled in power fashion through the 2 tables of the crest. These pins were fastened and the navigation array for the Joaquín navigation system. Next, a 12 to 15-cm curved longitudinal incision over the posterolateral aspect of the greater trochanter was incised. Hemostasis was achieved with Bovie cautery. Sharp dissection was carried down to level of the fascia. The fascia was opened the entire length of the incision, spreading the fibers of the gluteus juanjose in the direction of origin. A Charnley retractor was placed in this layer. Care was taken not to impale the sciatic nerve. The short external rotators were detached off the insertion of the greater trochanter and peeled off the capsule. A posterior capsulotomy was then performed. A check point was malleted into the greater trochanter and a point on the inferior pole of the patella was obtained as well. These 2 points were used to assess the preoperative offset and limb lengths of the hip. The hip was then dislocated. The femoral neck was then osteotomized down to the appropriate level as directed by the navigation device. Anterior and posterior retractors were placed, exposing the acetabulum. A circumferential labral excision was performed. A check point was malleted into the acetabulum as well. Multiple sites inside the acetabulum and around the rim were utilized to register the acetabulum with the navigation device. An excellent registration of less than 0.5 mm was obtained. The hip was then reamed with the appropriate reamer down to the appropriate depth, with the appropriate orientation and version as assessed on our preoperative plan for this patient. The reamer was removed and the acetabulum was inspected to have good bleeding surfaces throughout. The real acetabular cup was then malleted down into place, with the holes in the appropriate position, until an excellent fixation was obtained. No screws were necessary. The navigation device ensured appropriate orientation and version, with the depth as predetermined. The appropriate liner was then clipped into place. Attention was directed to the femur. The proximal femur was prepared by use a box chisel, a canal finder and serial broaches until the broach achieved excellent rigidity in the proximal femur with the appropriate version being applied. A calcar planer was used to smooth off the calcar flush with the trial components. A trial reduction with the appropriate head was done, and the hip was reduced. The hip was taken through a range of motion from full extension with external rotation to marked flexion, and was stable at 90 degrees of flexion. It was stable to marked abduction and internal rotation, with a positive hang test and negative telescoping. Limb lengths were ascertained visually as well as with the navigation device to be within the targeted range for this patient. The trial component was removed. The real component was then malleted into place. The head was cold welded to the trunnion, and the hip was reduced. Range of motion, stability and limb lengths were as described in the trial component. Then the hip was pulse antibiotic irrigated. Vancomycin powder was placed in the hip joint. The capsule was closed. The fascia was then closed as well using number 1 Vicryl interrupted suture, 0 and 2-0 subcutaneous, and 3-0 V-Loc for the skin. 4-0 undyed Vicryl was used to close the pin sites after the pins were removed. All check points were also removed. Sterile Aquacel dressing was applied. The patient was awakened from anesthesia and transferred into the supine position. Bilateral SCDs and an abduction pillow were placed. X-rays revealed excellent position of the components. The patient was transferred to the recovery room in stable condition, with no complications. Estimated blood loss was less than 100 mL. Bossman [id number]
[2019-10-14] MEDS: SENNOSIDES/DOCUSATE COMBO (SENNA PLUS) TABLET (UD) PO SCH (21:24)
[2019-10-14] MEDS: oxyCODONE HCL 10 MG SUSTAINED ACTING TABLET PO SCH (21:25)
[2019-10-14] MEDS: ATORVASTATIN CA 40 MG TABLET (FP) PO SCH (21:25)
[2019-10-15] MEDS ORDERED: DEXTROSE 5%-WATER 100 ML IVPB ONE (01:08)
[2019-10-15] MEDS ORDERED: ceFAZolin SODIUM 1 GM VIAL ONE (01:08)
[2019-10-15] MEDS: CEFAZOLIN 3 GM in DEXTROSE 5%-WATER 100 ML IVPB SCH (01:14)
[2019-10-15] MEDS: oxyCODONE HCL 5 MG TABLET PO PRN ×5 (02:46→21:31)
[2019-10-15] MEDS: CLOPIDOGREL BISULFATE 75 MG TABLET (FP) PO SCH (08:05)
[2019-10-15] MEDS: ASPIRIN 81 MG CHEWABLE TABLETS PO SCH (08:10)
--- NOTE | 2019-10-15 08:27 | PN ---
Progress Note (short form) - Note Progress Note: Ortho Pt seen and examined s/p right saba thr pod #1 Selected Entries 10/15/19 10/15/19 06:00 06:55 Temperature 98.6 F Pulse Rate 81 Respiratory 16 Rate Blood Pressure 127/55 L dressing c/d/i, calf soft, nt nvi a/p PT hip precautions dvt ppx pain control d/c home tomorrow if stable
[2019-10-15 08:51] LABS: HEMATOCRIT 31.1 % (35.4-49); HEMOGLOBIN 10.2 GM/dl (11.7-16.9); MCH 28.1 pg (25.7-33.7); MEAN CELL VOLUME 85.2 fl (80-96); MEAN PLT VOLUME 9.7 fl (7.5-11.1); PLATELET COUNT 221 K/MM3 (134-434); RBC 3.64 M/mm3 (4.00-5.60); RDW 13.7 % (11.9-15.9); WHITE BLOOD COUNT 9.9 K/mm3 (4.0-10.8)
[2019-10-15] MEDS: oxyCODONE HCL 10 MG SUSTAINED ACTING TABLET PO SCH ×2 (10:00→21:30)
[2019-10-15] MEDS: MULTIVITAMINS (DAILY MVI) TABLET (FP) PO SCH (10:38)
[2019-10-15] MEDS: ALLOPURINOL 100 MG TABLET (FP) PO SCH (10:38)
[2019-10-15] MEDS: SENNOSIDES/DOCUSATE COMBO (SENNA PLUS) TABLET (UD) PO SCH ×2 (10:38→21:30)
[2019-10-15] MEDS: LISINOPRIL 20 MG TABLET (FP) PO SCH (10:38)
[2019-10-15] MEDS: PANTOPRAZOLE 40 MG TABLET PO SCH (10:38)
[2019-10-15] MEDS: HYDROCHLOROTHIAZIDE 25 MG TABLET (FP) PO SCH (10:38)
[2019-10-15] MEDS: METOPROLOL TARTRATE 50 MG TABLET (FP) PO SCH (10:40)
[2019-10-15] MEDS ORDERED: PT OWN MED DRAWER 7, Y5N ONE (12:18)
--- NOTE | 2019-10-15 13:02 | PN ---
Progress Note (short form) - Note Progress Note: POD #1 s/p RTH makoplasty s/p spinal and paravertebral block. Doing well, pain tolerable with pain Rx, all questions answered.
[2019-10-15] MEDS: ATORVASTATIN CA 40 MG TABLET (FP) PO SCH (21:30)
[2019-10-16] MEDS: CLOPIDOGREL BISULFATE 75 MG TABLET (FP) PO SCH (08:20)
--- NOTE | 2019-10-16 08:35 | DS ---
Physical Examination Vital Signs: Vital Signs Temperature 100.1 F H 10/16/19 06:00 Pulse Rate 95 H 10/16/19 06:00 Respiratory Rate 18 10/16/19 06:00 Blood Pressure 111/50 L 10/16/19 06:00 O2 Sat by Pulse Oximetry (%) 98 10/16/19 06:00 Discharge Summary Problems reviewed: Yes Reason For Visit: OSTEOARTHRITIS Procedures: Principal: right thr Hospital Course: admitted for elective right saba thr, post-op per protocol, stable for d/c Condition: Good - Instructions Diet, Activity, Other Instructions: Post-op Instructions-Total Hip Replacement Call the office for a follow-up appointment in 1 week - [phone] Aspirin 325mg daily for 6 weeks. Pain medication was sent into your pharmacy. Apply Graduated Compression Stockings (TEDs) to both lower extremities- remove daily for hygiene ONLY Apply Sequential Compression Device (SCDs) to both Lower extremities remove for PT and hygiene ONLY Apply cold packs to affected area for 15 minutes every 2 hours. Physical Therapist will come to your home for the first 5 days. You will be set up with outpatient PT at your first post-operative visit. Patient may ambulate as tolerated-encourage self care (at least every 2-3 hours while awake) with walker or cane Maintain Aquacel (waterproof) dressing to operative wound (will be removed by surgeon at first office visit) Shower with Aquacel dressing in place-if Aquacel integrity compromised, remove and apply dry sterile dressing and notify Orthopedist. DO NOT SHOWER unless Orthopedists approves without Aquacel dressing CONTACT THE OFFICE FOR ANY CHANGE IN YOUR CONDITION (for example-fever greater than 102 degrees, excessive bleeding from operative site, purulent drainage, severe swelling or pain) GO TO THE EMERGENCY ROOM IF THERE IS A MEDICAL EMERGENCY Hip Precautions: * Keep a rolled towel under affected heel while in bed or chair (to keep knee in extension) * Dependent upon approach: * Posterior - do not cross legs; do not sit on low chairs or toilets. * If you have any questions, please do not hesitate to call the office - [phone]. Referrals: Bong Proctor MD [Staff Physician] - Disposition: VNS/HOME HEALTH CARE - Home Medications Comprehensive Discharge Medication List: Ambulatory Orders Allopurinol [Zyloprim -] 100 mg PO DAILY 06/27/18 Aspirin [ASA -] 81 mg PO DAILY tab.chew 02/15/19 Atorvastatin Ca [Lipitor] 80 mg PO DAILY 10/08/19 Lisinopril 20 mg PO DAILY 10/08/19 Oxycodone HCl/Acetaminophen [Percocet 10-325 mg Tablet] 1 each PO TID 10/08/19 Clopidogrel Bisulfate [Plavix] 75 mg PO DAILY 10/14/19 Metoprolol/Hydrochlorothiazide [Metoprolol-Hctz 100-25 mg Tab] 1 each PO DAILY 10/14/19 Oxycodone HCl/Acetaminophen [Percocet 5-325 mg Tablet -] 1 - 2 tab PO Q6H #50 tab MDD 8 10/14/19
--- NOTE | 2019-10-16 08:35 | PN ---
Progress Note (short form) - Note Progress Note: Ortho Pt seen and examined s/p right saba thr pod #2 Selected Entries 10/16/19 06:00 Temperature 100.1 F H Pulse Rate 95 H Respiratory 18 Rate Blood Pressure 111/50 L Laboratory Tests 10/15/19 07:16 WBC 9.9 Hgb 10.2 L Hct 31.1 L Plt Count 221 dressing c/d/i, calf soft, nt nvi a/p PT hip precautions dvt ppx pain control d/c home today f/u in 1 week
[2019-10-16 08:45] LABS: HEMATOCRIT 29.4 % (35.4-49); HEMOGLOBIN 10.2 GM/dl (11.7-16.9); MCH 29.1 pg (25.7-33.7); MCHC 34.7 g/dl (32.0-35.9); MEAN CELL VOLUME 83.8 fl (80-96); PLATELET COUNT 206 K/MM3 (134-434); RBC 3.51 M/mm3 (4.00-5.60); RDW 13.7 % (11.9-15.9); WHITE BLOOD COUNT 13.8 K/mm3 (4.0-10.8)
[2019-10-16] MEDS: oxyCODONE HCL 10 MG SUSTAINED ACTING TABLET PO SCH (10:00)
[2019-10-16] MEDS: ASPIRIN 81 MG CHEWABLE TABLETS PO SCH (10:00)
[2019-10-16] MEDS: MULTIVITAMINS (DAILY MVI) TABLET (FP) PO SCH (10:00)
[2019-10-16] MEDS: HYDROCHLOROTHIAZIDE 25 MG TABLET (FP) PO SCH (10:00)
[2019-10-16] MEDS: PANTOPRAZOLE 40 MG TABLET PO SCH (10:00)
[2019-10-16] MEDS: METOPROLOL TARTRATE 50 MG TABLET (FP) PO SCH (10:00)
[2019-10-16] MEDS: SENNOSIDES/DOCUSATE COMBO (SENNA PLUS) TABLET (UD) PO SCH (10:00)
[2019-10-16] MEDS: ALLOPURINOL 100 MG TABLET (FP) PO SCH (10:00)
[2019-10-16 10:40] VITALS: PULSE 68; TEMP 98.7
[2019-10-16 14:00] VITALS: BP 102/42
[2019-10-16] MEDS: LISINOPRIL 20 MG TABLET (FP) PO SCH (14:05)
[2019-10-16] MEDS ORDERED: PT OWN MED DRAWER 7, Y5N ONE (14:22)
--- NOTE | 2019-10-16 16:09 | PATH ---
Surgical Pathology Report Patient Name: SUSY GEORGE Med. Rec. #: [id number] /Age/Gender: 1965 (Age: 54) / M Account: [id number] Location: [facility] MED-SURG Taken: 10/14/2019 Received: 10/14/2019 Reported: 10/16/2019 Physicians: Bong Proctor M.D. Specimen(s) Received RIGHT FEMORAL HEAD Clinical History Osteoarthritis right hip Final Diagnosis FEMORAL HEAD, RIGHT, TOTAL HIP REPLACEMENT: DEGENERATIVE JOINT DISEASE. Electronically Signed Vani Lombardi M.D. Gross Description Received in formalin, labeled "right femoral head," is a 5.5 x 5.5 x 4.2 cm. femoral head with a 0.7 cm in length portion of femoral neck attached. The margin of resection is smooth. There is a 5.7 cm in greatest dimension area of eburnation present. The remaining articular surface is mccormick-yellow and diffusely nodular and granular. The underlying trabecular bone is yellow and hard. A hospital insurance representative section is submitted in one cassette, following decalcification. 10/15/2019 [facility]10/15/2019
== END 2019-10-16 14:20 | disposition home health service (06) | DRG 470 ==
LOC: FM/S 06:48
PROVIDERS: ADMIT Orthopaedic Surgery; ATTEND Orthopaedic Surgery
PROC: 8E0W0CZ Robotic Assisted Procedure of Trunk Region, Open Approach (ICD-10-PCS; 2019-10-14)
PROC: 0SR903A Replacement of Right Hip Joint with Ceramic Synthetic Substitute, Uncemented, Open Approach (ICD-10-PCS; principal; 2019-10-14 09:45)
DX: M16.11 Unilateral primary osteoarthritis, right hip (principal); I10 Essential (primary) hypertension
CPT/HCPCS: 36415; 73502-TC-RT-FY; 85027; 88305-TC; 88311-TC; 94760; 97010-GP; 97116-GP; 97161-GP; J0131

== ENCOUNTER 2022-04-24 09:42 | Observation (INO) | payer BC ==
[2022-04-24 10:26] VITALS: BMI 44.9
[2022-04-24 10:57] LABS: BASO % 0.8 % (0-2.0); EOS % 2.6 % (0-4.5); HEMATOCRIT 51.3 % (35.4-49); HEMOGLOBIN 17.9 GM/dL (11.7-16.9); LYMPH % 19.6 % (8-40); MCH 32.3 pg (25.7-33.7); MCHC 34.9 g/dl (32.0-35.9); MEAN CELL VOLUME 92.6 fl (80-96); MEAN PLT VOLUME 8.9 fl (7.5-11.1); MONO % 8.9 % (3.8-10.2); NEUT % 68.1 % (42.8-82.8); PLATELET COUNT 272 10^3/uL (134-434); RBC 5.53 M/mm3 (4.00-5.60); RDW 14.3 % (11.9-15.9); WHITE BLOOD COUNT 9.4 K/mm3 (4.0-10.0)
[2022-04-24 11:20] LABS: ALBUMIN 3.4 g/dl (3.4-5.0); BLOOD UREA NITROGEN 16.9 mg/dL (7-18); CALCIUM 9.1 mg/dL (8.5-10.1)
[2022-04-24 11:23] LABS: CREATININE 1.2 mg/dL (0.55-1.3)
[2022-04-24 11:25] LABS: BILIRUBIN,TOTAL 0.5 mg/dL (0.2-1); TOT PROT 7.8 g/dl (6.4-8.2)
[2022-04-24 16:40] LABS: ARTERIAL BLD GAS O2 SATURATION 92.7 % (95-98); ARTERIAL BLOOD GAS BASE EXCESS 2.3 mmol/L (-2-2); ARTERIAL BLOOD GAS PO2 65.3 mmHg (80-100)
[2022-04-24 17:06] LABS: ALLENS TEST POSITIVE
[2022-04-24] MEDS: ASPIRIN COATED 81 MG TABLET.EC PO SCH (18:52)
[2022-04-24] MEDS ORDERED: METOPROLOL TARTRATE 25 MG TABLET (FP) ONE (21:40)
[2022-04-24] MEDS ORDERED: ATORVASTATIN CA 80 MG TABLET (FP) ONE (21:40)
[2022-04-24] MEDS: METOPROLOL TARTRATE 25 MG TABLET (FP) PO SCH (21:49)
[2022-04-24] MEDS ORDERED: ATORVASTATIN CA 80 MG TABLET (FP) PO SCH (22:00)
[2022-04-25 07:08] LABS: CHOLESTEROL 196 mg/dL (50-200)
[2022-04-25 07:09] LABS: LDL CHOLESTEROL (ONLY SJRH) 131 mg/dL (5-100); TRIGLYCERIDES 175 mg/dL (0-150)
[2022-04-25 07:12] LABS: HDL CHOLESTEROL 33 mg/dL (40-60)
[2022-04-25] MEDS ORDERED: METOPROLOL TARTRATE 25 MG TABLET (FP) ONE (08:41)
[2022-04-25] MEDS ORDERED: LISINOPRIL 20 MG TABLET ONE (08:42)
[2022-04-25] MEDS ORDERED: ASPIRIN COATED 81 MG TABLET.EC ONE (08:42)
[2022-04-25] MEDS: ASPIRIN COATED 81 MG TABLET.EC PO SCH (09:12)
[2022-04-25] MEDS: METOPROLOL TARTRATE 25 MG TABLET (FP) PO SCH (09:12)
[2022-04-25] MEDS ORDERED: LISINOPRIL 20 MG TABLET PO SCH (10:00)
[2022-04-25] MEDS ORDERED: ALLOPURINOL 100 MG TABLET (FP) PO SCH (10:00)
[2022-04-25 14:22] VITALS: TEMP 97.5
[2022-04-25 16:38] VITALS: BP 139/82; PULSE 72; RESP 20
== END 2022-04-25 16:49 | disposition home or self-care (01) ==
LOC: JER 09:42 → JERBED 13:48
PROVIDERS: ADMIT Internal Medicine; ATTEND Internal Medicine
DX: R79.89 Other specified abnormal findings of blood chemistry (principal); I25.10 Atherosclerotic heart disease of native coronary artery without angina pectoris; I11.9 Hypertensive heart disease without heart failure; Z68.41 Body mass index [BMI] 40.0-44.9, adult; E78.5 Hyperlipidemia, unspecified; R06.02 Shortness of breath; Z95.5 Presence of coronary angioplasty implant and graft; E66.01 Morbid (severe) obesity due to excess calories; I25.2 Old myocardial infarction; Z86.711 Personal history of pulmonary embolism; Z96.641 Presence of right artificial hip joint
CPT/HCPCS: 0241U-QW; 36415; 36600; 71046-TC-FY; 80053; 80061; 82550; 82803; 83880; 84484; 85025; 93005; 93010; 93306-TC; 99285-25; G0378